=== PATIENT | female | born 1950 | race Caucasian/White ===

== ENCOUNTER 2023-08-08 11:55 | Outpatient (CLI) | payer MEDICARE, SELFPAY ==
[2023-08-08 12:11] VITALS: BMI 26.3
--- NOTE | 2023-08-08 12:13 | PC.NURSE ---
1213-c.leny brown collected labs via venipuncture stick in right ac with butterfly needle; pt d/c to radiology for mammogram and then to dr. rodriguez's office.
--- NOTE | 2023-08-08 12:27 | MM_ITS ---
PROCEDURE INFORMATION: Exam: MG Bilateral Diagnostic Breast Tomosynthesis Exam date and time: 08/08/2023 12:49 PM Age: 72 years old Clinical indication: History of left breast cancer TECHNIQUE: Imaging protocol: Bilateral Diagnostic tomosynthesis and 2D mammography including computer-aided detection (CAD) when performed. Unilateral or bilateral exam. COMPARISON: MG MM DIGITAL MAMMO DIAGNOSTIC LEFT 08/27/2022 11:04 AM FINDINGS: MAMMOGRAPHY: The breast tissue is composed of scattered areas of fibroglandular density. There is no stellate mass, suspicious architectural distortion or suspicious microcalcifications in either breast to suggest malignancy. Post operative architectural distortion in the left upper outer quadrant due to interval lumpectomy for carcinoma. Diffuse skin thickening on the left and increased stromal markings are due to radiation change. No axillary adenopathy IMPRESSION: No mammographic evidence of malignancy. Annual bilateral mammographic screening is recommended unless otherwise clinically indicated. ASSESSMENT: BI-RADS Category 2: Benign
[2023-08-08 12:29] LABS: Basophils % 0.9 % (0.1-2.0); Eosinophils # 0.1 K/mm3 (0.0-0.4); Eosinophils % 2.6 % (0.1-12.0); Hematocrit 39.6 % (37.0-47.0); Hemoglobin 13.4 g/dL (12.2-16.2); Lymphocytes # 0.8 K/mm3 (0.7-4.5); Lymphocytes % 19.6 % (10-50); Mean Corpuscular HGB Conc 33.8 g/dL (31.8-35.4); Mean Corpuscular Hemoglobin 31.9 pg (27.0-31.2); Mean Corpuscular Volume 94.4 fl (81-99); Mean Platelet Volume 8.6 fl (7.4-10.4); Monocytes # 0.2 K/mm3 (0.1-1.0); Monocytes % 5.6 % (1.7-9.3); Neutrophils # 2.9 K/mm3 (1.8-7.8); Neutrophils % 71.3 % (37.0-80.0); Platelet Count 167 K/mm3 (142-424); Red Cell Distribution Width 14.8 % (11.5-17.5)
[2023-08-08 12:37] LABS: Chloride 105 mmol/L (98-107); Potassium 3.8 mmoL/L (3.5-5.1); Sodium 143 mmol/L (136-145)
[2023-08-08 12:40] LABS: Alanine Aminotransferase 18 U/L (12-78); Albumin Level 4.3 g/dl (3.5-5.0); Albumin/Globulin Ratio 1.4 (1.1-1.8); Alkaline Phosphatase 51 U/L (38-126); Anion Gap 9.8 mEq/L (5-15); Aspartate Amino Transferase 27 U/L (14-36); Bilirubin,Total 0.5 mg/dl (0.2-1.3); Blood Urea Nitrogen 9 mg/dl (7-17); Carbon Dioxide 32 mmol/L (22.0-30.0); Creatinine Clearance Estimated 52 mL/min (50-200); Estimated Glomerular Filt Rate 82 ml/min (>60); GFR (African American) 100 ML/MIN (>60); Globulin 3.1 g/dL (1.3-3.2); Total Protein,Serum 7.4 g/dl (6.3-8.2)
[2023-08-08 12:41] LABS: Calcium 9.3 mg/dl (8.4-10.2); Glucose 94 mg/dl (74-100)
== END 2023-08-08 12:20 | disposition home or self-care (01) ==
PROVIDERS: Visit Provider Internal Medicine Medical Oncology
DX: C50.912 Malignant neoplasm of unspecified site of left female breast (principal); R92.8 Other abnormal and inconclusive findings on diagnostic imaging of breast
CPT/HCPCS: 36415; 77062; 77066; 80053; 85025; G0279

== ENCOUNTER 2023-11-06 12:59 | Outpatient (CLI) | payer MEDICARE, SELFPAY ==
[2023-11-06 13:04] VITALS: BMI 27.4
[2023-11-06 13:27] LABS: Basophils # 0.1 K/mm3 (0-0.2); Basophils % 0.8 % (0.1-2.0); Eosinophils # 0.2 K/mm3 (0.0-0.4); Eosinophils % 3.7 % (0.1-12.0); Hematocrit 38.9 % (37.0-47.0); Hemoglobin 12.5 g/dL (12.2-16.2); Lymphocytes % 16.1 % (10-50); Mean Corpuscular HGB Conc 32.1 g/dL (31.8-35.4); Mean Corpuscular Hemoglobin 31.4 pg (27.0-31.2); Mean Corpuscular Volume 97.6 fl (81-99); Mean Platelet Volume 8.7 fl (7.4-10.4); Monocytes # 0.4 K/mm3 (0.1-1.0); Monocytes % 6.8 % (1.7-9.3); Neutrophils # 4.3 K/mm3 (1.8-7.8); Neutrophils % 72.6 % (37.0-80.0); Platelet Count 208 K/mm3 (142-424); Red Blood Count 3.98 M/mm3 (4.20-5.40); Red Cell Distribution Width 13.9 % (11.5-17.5); White Blood Count 5.9 K/mm3 (4.8-10.8)
[2023-11-06 13:37] LABS: Alanine Aminotransferase 17 U/L (12-78); Albumin Level 4.1 g/dl (3.5-5.0); Albumin/Globulin Ratio 1.4 (1.1-1.8); Alkaline Phosphatase 65 U/L (38-126); Aspartate Amino Transferase 26 U/L (14-36); Bilirubin,Total 0.4 mg/dl (0.2-1.3); Blood Urea Nitrogen 10 mg/dl (7-17); Calcium 9.7 mg/dl (8.4-10.2); Carbon Dioxide 32 mmol/L (22.0-30.0); Chloride 103 mmol/L (98-107); Creatinine Clearance Estimated 55 mL/min (50-200); Estimated Glomerular Filt Rate 98 ml/min (>60); GFR (African American) 119 ML/MIN (>60); Glucose 93 mg/dl (74-100); Sodium 141 mmol/L (136-145); Total Protein,Serum 7.1 g/dl (6.3-8.2)
[2023-11-06 14:18] VITALS: BP 155/69; PULSE 66; RESP 18; O2SAT 99
[2023-11-06] MEDS: SODIUM CHLORIDE 0.9% 50ML BAG 50 ML IV (14:18)
[2023-11-06] MEDS: ZOLEDRONIC ACID 4 MG in 0.9 % SODIUM CHLORIDE 100 ML 420 MG IV (14:18)
[2023-11-06 14:40] VITALS: BP 148/61; PULSE 60; RESP 18; O2SAT 100
== END 2023-11-06 14:40 | disposition home or self-care (01) ==
LOC: INF 13:01
PROVIDERS: Visit Provider Internal Medicine Medical Oncology
DX: C50.912 Malignant neoplasm of unspecified site of left female breast (principal)
CPT/HCPCS: 80053; 85025; 96374; J3489

== ENCOUNTER 2024-02-19 13:16 | Outpatient (CLI) | payer MEDICARE, SELFPAY ==
[2024-02-19 14:18] VITALS: BMI 27.4
[2024-02-19 15:40] LABS: Albumin Level 4.7 g/dl (3.5-5.0); Basophils # 0.1 K/mm3 (0-0.2); Basophils % 0.7 % (0.1-2.0); Chloride 103 mmol/L (98-107); Eosinophils # 0.1 K/mm3 (0.0-0.4); Eosinophils % 1.7 % (0.1-12.0); Hemoglobin 14.1 g/dL (12.2-16.2); Lymphocytes # 1.4 K/mm3 (0.7-4.5); Lymphocytes % 17.2 % (10-50); Mean Corpuscular HGB Conc 31.3 g/dL (31.8-35.4); Mean Corpuscular Hemoglobin 30.9 pg (27.0-31.2); Mean Corpuscular Volume 98.8 fl (81-99); Mean Platelet Volume 9.3 fl (7.4-10.4); Monocytes # 0.4 K/mm3 (0.1-1.0); Monocytes % 4.4 % (1.7-9.3); Neutrophils # 6.1 K/mm3 (1.8-7.8); Platelet Count 209 K/mm3 (142-424); Potassium 4.1 mmoL/L (3.5-5.1); Red Blood Count 4.55 M/mm3 (4.20-5.40); Red Cell Distribution Width 14.1 % (11.5-17.5); Sodium 140 mmol/L (136-145)
[2024-02-19 15:43] LABS: Alanine Aminotransferase 21 U/L (12-78); Albumin/Globulin Ratio 1.3 (1.1-1.8); Alkaline Phosphatase 60 U/L (38-126); Anion Gap 9.1 mEq/L (5-15); Aspartate Amino Transferase 33 U/L (14-36); Bilirubin,Total 0.6 mg/dl (0.2-1.3); Blood Urea Nitrogen 16 mg/dl (7-17); Carbon Dioxide 32 mmol/L (22.0-30.0); Creatinine Clearance Estimated 54 mL/min (50-200); Estimated Glomerular Filt Rate 82 ml/min (>60); GFR (African American) 99 ML/MIN (>60); Globulin 3.5 g/dL (1.3-3.2); Total Protein,Serum 8.2 g/dl (6.3-8.2)
[2024-02-19 15:44] LABS: Glucose 102 mg/dl (74-100)
== END 2024-02-19 13:30 | disposition home or self-care (01) ==
LOC: INF 13:17
PROVIDERS: Visit Provider Internal Medicine Medical Oncology
DX: C50.912 Malignant neoplasm of unspecified site of left female breast (principal)
CPT/HCPCS: 36415; 80053; 85025

== ENCOUNTER 2024-05-20 10:04 | Outpatient (CLI) | payer MEDICARE, SELFPAY ==
[2024-05-20 10:26] VITALS: BMI 27.4
[2024-05-20 10:45] LABS: Basophils % 0.8 % (0.1-2.0); Eosinophils # 0.2 K/mm3 (0.0-0.4); Eosinophils % 3.6 % (0.1-12.0); Hematocrit 41.8 % (37.0-47.0); Lymphocytes # 0.8 K/mm3 (0.7-4.5); Lymphocytes % 14.7 % (10-50); Mean Corpuscular HGB Conc 33.5 g/dL (31.8-35.4); Mean Corpuscular Hemoglobin 32.2 pg (27.0-31.2); Mean Corpuscular Volume 96.2 fl (81-99); Mean Platelet Volume 8.3 fl (7.4-10.4); Monocytes # 0.3 K/mm3 (0.1-1.0); Monocytes % 5.9 % (1.7-9.3); Neutrophils # 4.3 K/mm3 (1.8-7.8); Platelet Count 158 K/mm3 (142-424); Red Blood Count 4.34 M/mm3 (4.20-5.40); White Blood Count 5.7 K/mm3 (4.8-10.8)
[2024-05-20 10:55] LABS: Alanine Aminotransferase 18 U/L (12-78); Albumin Level 4.3 g/dl (3.5-5.0); Albumin/Globulin Ratio 1.5 (1.1-1.8); Alkaline Phosphatase 54 U/L (38-126); Anion Gap 9.5 mEq/L (5-15); Aspartate Amino Transferase 26 U/L (14-36); Bilirubin,Total 0.6 mg/dl (0.2-1.3); Blood Urea Nitrogen 11 mg/dl (7-17); Calcium 8.9 mg/dl (8.4-10.2); Carbon Dioxide 32 mmol/L (22.0-30.0); Chloride 105 mmol/L (98-107); Creatinine Clearance Estimated 54 mL/min (50-200); Estimated Glomerular Filt Rate 98 ml/min (>60); GFR (African American) 119 ML/MIN (>60); Globulin 2.9 g/dL (1.3-3.2); Glucose 71 mg/dl (74-100); Potassium 3.5 mmoL/L (3.5-5.1); Sodium 143 mmol/L (136-145); Total Protein,Serum 7.2 g/dl (6.3-8.2)
[2024-05-20] MEDS: SODIUM CHLORIDE 0.9% 50ML BAG 50 ML IV (12:00)
[2024-05-20] MEDS: ZOLEDRONIC ACID 4 MG in 0.9 % SODIUM CHLORIDE 100 ML 420 MG IV (12:00)
[2024-05-20 12:05] VITALS: BP 150/65; PULSE 57; RESP 16; O2SAT 98
[2024-05-20 12:20] VITALS: BP 162/79; PULSE 59; RESP 16
== END 2024-05-20 12:30 | disposition home or self-care (01) ==
LOC: INF 10:09
PROVIDERS: PCP Internal Medicine; Visit Provider Internal Medicine Medical Oncology
DX: C50.912 Malignant neoplasm of unspecified site of left female breast (principal); Z51.11 Encounter for antineoplastic chemotherapy; Z79.83 Long term (current) use of bisphosphonates
CPT/HCPCS: 80053; 85025; 96374; J3489

== ENCOUNTER 2024-08-26 09:52 | Outpatient (CLI) | payer MEDICARE, SELFPAY ==
--- NOTE | 2024-08-26 09:59 | MM_ITS ---
PROCEDURE INFORMATION: Exam: MG Bilateral Screening 3D Mammography Exam date and time: 08/26/2024 10:03 AM Age: 73 years old Clinical indication: Screening exam. Personal history of left breast cancer status post radiation and lumpectomy. TECHNIQUE: Imaging protocol: Bilateral Screening tomosynthesis and 2D mammography including computer-aided detection (CAD) when performed. COMPARISON: 1. MG MM DIG MAMM BI DX W/CAD 08/08/2023 12:49 PM 2. MG MM DIGITAL MAMMO DIAGNOSTIC LEFT 08/27/2022 11:04 AM FINDINGS: MAMMOGRAPHY: Breast composition: The breasts are heterogeneously dense, which may obscure small masses. Mass: No suspicious masses. Architectural distortion: Postsurgical changes redemonstrated left breast. Calcifications: No suspicious calcifications. Asymmetric density: None. Skin thickening: Postradiation skin thickening again noted. Axillary adenopathy: None. IMPRESSION: No mammographic evidence of malignancy. Annual screening is recommended unless otherwise clinically indicated. ASSESSMENT: BI-RADS Category 2: Benign.
[2024-08-26 10:25] VITALS: BMI 28.3
--- NOTE | 2024-08-26 10:29 | PC.NURSE ---
1029-collected labs via venipuncture stick in right ac with butterfly needle;pt to oncology appt.
[2024-08-26 10:36] LABS: Basophils % 0.5 % (0.1-2.0); Eosinophils # 0.1 K/mm3 (0.0-0.4); Eosinophils % 1.9 % (0.1-12.0); Hematocrit 41.4 % (37.0-47.0); Hemoglobin 13.5 g/dL (12.2-16.2); Lymphocytes % 15.4 % (10-50); Mean Corpuscular HGB Conc 32.6 g/dL (31.8-35.4); Mean Corpuscular Hemoglobin 31.3 pg (27.0-31.2); Mean Corpuscular Volume 95.8 fl (81-99); Mean Platelet Volume 10.3 fl (7.4-10.4); Monocytes # 0.6 K/mm3 (0.1-1.0); Monocytes % 9.3 % (1.7-9.3); Neutrophils # 4.6 K/mm3 (1.8-7.8); Neutrophils % 72.7 % (37.0-80.0); Platelet Count 181 K/mm3 (142-424); Red Blood Count 4.32 M/mm3 (4.20-5.40); Red Cell Distribution Width 12.8 % (11.5-17.5); White Blood Count 6.4 K/mm3 (4.8-10.8)
[2024-08-26 10:41] LABS: Albumin Level 4.7 g/dl (3.5-5.0); Chloride 103 mmol/L (98-107); Sodium 142 mmol/L (136-145)
[2024-08-26 10:42] LABS: Potassium 3.9 mmoL/L (3.5-5.1)
[2024-08-26 10:44] LABS: Alanine Aminotransferase 23 U/L (12-78); Albumin/Globulin Ratio 1.5 (1.1-1.8); Alkaline Phosphatase 64 U/L (38-126); Anion Gap 9.9 mEq/L (5-15); Aspartate Amino Transferase 28 U/L (14-36); Bilirubin,Total 0.4 mg/dl (0.2-1.3); Blood Urea Nitrogen 12 mg/dl (7-17); Carbon Dioxide 33 mmol/L (22.0-30.0); Creatinine Clearance Estimated 56 mL/min (50-200); Estimated Glomerular Filt Rate 82 ml/min (>60); GFR (African American) 99 ML/MIN (>60); Globulin 3.2 g/dL (1.3-3.2); Total Protein,Serum 7.9 g/dl (6.3-8.2)
[2024-08-26 10:45] LABS: Calcium 9.7 mg/dl (8.4-10.2); Glucose 96 mg/dl (74-100)
== END 2024-08-26 10:32 | disposition home or self-care (01) ==
LOC: RAD 09:54 → INF 09:59
PROVIDERS: PCP Internal Medicine; Visit Provider Internal Medicine Medical Oncology
DX: Z12.31 Encounter for screening mammogram for malignant neoplasm of breast (principal); C50.912 Malignant neoplasm of unspecified site of left female breast
CPT/HCPCS: 36415; 77063; 77067; 80053; 85025

== ENCOUNTER 2024-11-25 10:42 | Outpatient (CLI) | payer MEDICARE, SELFPAY ==
[2024-11-25 10:45] VITALS: BMI 24.4
[2024-11-25 10:59] LABS: Basophils % 0.4 % (0.1-2.0); Eosinophils # 0.1 Kmm3 (0.0-0.4); Eosinophils % 1.9 % (0.1-12.0); Hematocrit 40.2 % (37.0-47.0); Hemoglobin 12.7 g/dL (12.2-16.2); Immature Granulocytes # 0.02 10^3uL; Immature Granulocytes % 0.3 %; Lymphocytes # 0.9 K/mm3 (0.7-4.5); Lymphocytes % 11.5 % (10-50); Mean Corpuscular HGB Conc 31.6 g/dL (31.8-35.4); Mean Corpuscular Hemoglobin 30.6 pg (27.0-31.2); Mean Corpuscular Volume 96.9 fl (81-99); Monocytes # 0.5 K/mm3 (0.1-1.0); Monocytes % 6.6 % (1.7-9.3); Neutrophils % 79.3 % (37.0-80.0); Nucleated Red Blood Cells # 0 10^3/uL; Nucleated Red Blood Cells % 0 %; Platelet Count 214 K/mm3 (142-424); Red Blood Count 4.15 M/mm3 (4.20-5.40); Red Cell Distribution Width 12.8 % (11.5-17.5); Red Cell Distribution Width-SD 45.4 fL; White Blood Count 7.5 K/mm3 (4.8-10.8)
[2024-11-25 11:06] LABS: Albumin Level 4.4 g/dl (3.5-5.0); Chloride 105 mmol/L (98-107); Potassium 3.6 mmoL/L (3.5-5.1); Sodium 142 mmol/L (136-145)
[2024-11-25 11:09] LABS: Alanine Aminotransferase 20 U/L (12-78); Albumin/Globulin Ratio 1.6 (1.1-1.8); Alkaline Phosphatase 62 U/L (38-126); Anion Gap 7.6 mEq/L (5-15); Aspartate Amino Transferase 29 U/L (14-36); Bilirubin,Total 0.5 mg/dl (0.2-1.3); Blood Urea Nitrogen 13 mg/dl (7-17); Carbon Dioxide 33 mmol/L (22.0-30.0); Creatinine Clearance Estimated 50 mL/min (50-200); Estimated Glomerular Filt Rate 82 ml/min (>60); GFR (African American) 99 ML/MIN (>60); Globulin 2.8 g/dL (1.3-3.2); Total Protein,Serum 7.2 g/dl (6.3-8.2)
[2024-11-25 11:10] LABS: Calcium 9.5 mg/dl (8.4-10.2); Glucose 109 mg/dl (74-100)
[2024-11-25] MEDS: ZOLEDRONIC ACID 4 MG in 0.9 % SODIUM CHLORIDE 100 ML 420 MG IV (12:17)
[2024-11-25] MEDS: SODIUM CHLORIDE 0.9% 50ML BAG 50 ML IV (12:17)
[2024-11-25 12:20] VITALS: BP 136/64; PULSE 70; RESP 18; O2SAT 99
[2024-11-25 12:40] VITALS: BP 146/61; PULSE 68; RESP 18; O2SAT 100
== END 2024-11-25 12:45 | disposition home or self-care (01) ==
LOC: INF 10:44
PROVIDERS: Visit Provider Internal Medicine Medical Oncology
DX: C50.912 Malignant neoplasm of unspecified site of left female breast (principal)
CPT/HCPCS: 80053; 85025; 96374; J3489

== ENCOUNTER 2025-02-24 09:58 | Outpatient (CLI) | payer MEDICARE, SELFPAY ==
--- OUTSIDE RECORDS SUMMARY | 2018-03-18 05:50 | XMS_ITS | Continuity of Care Document ---
Author Organization [facility] Address [address] [place] [phone] Phone Care Team Providers Care Automobile Body Repairer Name Role Phone Tra Decker MD Unavailable Unavailable Procedures Procedure Date OFFICE/OUTPATIENT VISIT, EST POSTOP FOLLOW-UP VISIT POSTOP FOLLOW-UP VISIT POSTOP FOLLOW-UP VISIT POSTOP FOLLOW-UP VISIT CORNEAL TRNSPL, ENDOTHELIAL EYE EXAM & TREATMENT Advance Directives Directive Yes / No Effective Date File Name No Information Encounters Encounter Description Practice Location Reason(s) For Visit Diagnoses Date Provider Providers Copied on Encounter [facility], [address] [place] [address], [address] [place] [address], tel:[phone] [facility] No Information Brianne Dutta. [address] [place] [address], [address] [place] [address], . tel:[phone] OFFICE/OUTPAT IENT VISIT, EST [facility], [address] [place] [address], [id number], tel:[phone] LUZMA ZIEGLER No Information Brianne Dutta. [address] [place] [address], [address] [place] [address], . tel:[phone] [facility], [address] [place] [address], [id number], tel:[phone] LUZMA ZIEGLER No Information [facility]. [address] [place] [address], [address] [place] [address], . tel:[phone] [facility], [address] [place] [address], [address] [place] [address], tel:[phone] LUZMA [facility] [place] No Information [facility] [address] [place] [address], [address] [place] [address], . tel:[phone] [facility], [address] [place] [address], [address] [place] [address], tel:[phone] [facility] [place] No Information [place] [address]. [address] [place] [address], [address] [place] [address], . tel:[phone] [facility], [address] [place] [address], [address] [place] [address], tel:[phone] [employer] [place] No Information [place] [address]. [address] [place] [address], [address] [place] [address], . tel:[phone] [facility], [address] [place] [address], [address] [place] [address], tel:[phone] [facility] [place] No Information [place] [address]. [address] [place] [address], [address] [place] [address], . tel:[phone] Referring Provider: Elmer Byers, [address] [place], [address]. tel:[phone] [facility], [address] [place] [address], [id number], tel:[phone] [employer] [place] No Information [facility] [address]. [address] [place] [address], [address] [place] [address], . tel:[phone] Family History Family Member Type Diagnosis Age At Onset No Information Payers Payer name Insurance type Covered constitution party ID Authoriza tiishmael(s) Chetna Ma FEP BL [id number] Social History Type Description Quantity Date Captured Comments Sex Female Smoking Status No Information Chief Complaint And Reason For Visit No Information Reason For Referral Reason For Referral No Information History Of Present Illness Encounter Date Complaint History Of Prese nt Illness No Information Functional Status Date Functional Assessmen t No Information Instructions Date Instruction Additional Infor mation No Information Assessments Type Assessment Date No Information Patient Care Teams Name Effective Dates (start - stop) Status Members No Information
--- OUTSIDE RECORDS SUMMARY | 2025-02-11 12:41 | XMS_ITS | Encounter Summary ---
Author Organization Healthcare Address [address] [id number] Care Team Providers Care Angular Js Developer Name Role Phone Koko Mejia MD Primary Care Provider [phone] Reason for Visit * Imaging (Routine) - Closed Specialty Diagnoses / Procedures Referred By Contac t Referred To Contact Radiology Diagnoses Dementia (CMS/[facility]) Procedures PET/CT Amyloid Brain Selena Vegas MD [address] [place] [address] Phone: tel: fax: Referral ID Status Reason Start Date Expiration Date Visits Re quested Visits Authorized [id number] Closed 12/31/2024 07/02/2026 2 2 Encounter Details Date Type Department Care Team (Latest Contact Info) Description 02/11/2025 12:41 PM EDT - 02/11/2025 11:59 PM EDT Hospital Encounter [facility] Radiology [address] [place] [address] Discharge Disposition: Home or Self Care Social History Tobacco Use Types Packs/Day Years Used Date Smoking Tobacco: Never Assessed Comments Unknown Sex and Gender Information Value Date Recorded Sex Assigned at Not on file Legal Sex Female 7:40 AM EDT Gender Identity Not on file Sexual Orientation Not on file documented as of this encounter Plan of Treatment Not on file documented as of this encounter Procedures Procedure Name Priority Date/Time Associated Diagnosis Comments PET/CT AMYLOID BRAIN Routine 02/11/2025 2:10 PM EDT Dementia (CMS/HCC) documented in this encounter Results * PET/CT Amyloid Brain (02/11/2025 2:10 PM EDT) Anatomical Region Laterality Modality Positron Emissio n Tomography (PET) Impressions 02/11/2025 4:13 PM EDT F-18 Amyvid scan demonstrates: 1. 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 2. Centiloid Score > 100 suggests high amyloid burden and correlates with established AD pathology and clinical diagnosis. CRITICAL RESULT: No. COMMUNICATION: Per this written report. By electronically signing this report, I, the attending physician, attest that I have personally reviewed the images/data for the above examination(s) and agree with the final edited report. Drafted by CAMI Saul on 02/11/2025 3:26 PM Final report signed by Dmitriy Bello on 02/11/2025 4:13 PM Narrative 02/11/2025 4:13 PM EDT CLINICAL INDICATION: 74 wrcmd-qrmv-eei female diagnosed with dementia, presenting for assessment of eligibility for anti- amyloid therapy. TECHNIQUE: Radiopharmaceutical: 8.1 mCi of F-18 (florbetapir) (Amyvid) administered intravenously at right antecubital fossa at 13:28. Incubation interval: 40 minutes. Positioning: Supine, arms by sides. PET/CT scanner: Siemens Biograph 40 mCT. PET/CT acquisition: Head (Brain). PET reconstruction method: Point Spread Function-Time of Flight (PSF-TOF), 4 iterations, 21 subsets, with and without CT-based attenuation correction. CT: Low-dose, rop-[id number]-qhbx, without intravenous contrast. TOTAL DLP (Dose Length Product): 503.35 mGy cm. Advanced quantitative analysis and both regional and global SUV ratios (SUVr) were reviewed as well as the Global Centiloid Score. COMPARISON/CORRELATION: No comparison. No recent correlative imaging. FINDINGS: Technical quality: Diagnostic. Interpretation: without knowledge of clinical information as directed in the F- 18 (florbetapir) (Amyvid) instructions. Cerebellar uptake: Slightly asymmetrical. Cerebral uptake: Slightly asymmetrical. Moderately increased cerebral cortical uptake with loss of breen/white matter differentiation. Global SUVr: 1.74 Centiloid score: 125.4 CT findings: No acute abnormality. Procedure Note Dmitriy Bello MD - 02/11/2025 CLINICAL INDICATION: 74 wnrul-auag-cfo female diagnosed with dementia, presenting forassessment of eligibility for anti-amyloid therapy. TECHNIQUE: Radiopharmaceutical: 8.1 mCi of F-18 (florbetapir) (Amyvid) administeredintravenously at right antecubital fossa at 13:28. Incubation interval: 40 minutes. Positioning: Supine, arms by sides. PET/CT scanner: Siemens Biograph 40 mCT. PET/CT acquisition: Head (Brain). PET reconstruction method: Point Spread Function-Time of Flight (PSF-TOF),4 iterations, 21 subsets, with and without CT-based attenuationcorrection. CT: Low-dose, [id number]-zyetsy-quhv, without intravenous contrast. TOTAL DLP (Dose Length Product): 503.35 mGy cm. Advanced quantitative analysis and both regional and global SUV ratios(SUVr) were reviewed as well as the Global Centiloid Score. COMPARISON/CORRELATION: No comparison. No recent correlative imaging. FINDINGS: Technical quality: Diagnostic. Interpretation: without knowledge of clinical information as directed inthe F-18 (florbetapir) (Amyvid) instructions. Cerebellar uptake: Slightly asymmetrical. Cerebral uptake: Slightly asymmetrical. Moderately increased cerebral cortical uptake with loss of breen/whitematter differentiation. Global SUVr: 1.74 Centiloid score: 125.4 CT findings: No acute abnormality. IMPRESSION: F-18 Amyvid scan demonstrates: 1.Visual assessment shows evidence of significant beta-Amyloid depositionin the cerebral cortex. 2.Centiloid Score > 100 suggests high amyloid burden and correlates withestablished AD pathology and clinical diagnosis. CRITICAL RESULT: No. COMMUNICATION: Per this written report. By electronically signing this report, I, the attending physician, attestthat I have personally reviewed the images/data for the aboveexamination(s) and agree with the final edited report. Drafted by CAMI Saul on 02/11/2025 3:26 PM Final report signed by Dmitriy Bello on 02/11/2025 4:13 PM Selena Vegas MD [facility] PROCEDURES Final Result documented in this encounter Visit Diagnoses Not on filedocumented in this encounter Care Teams Angular Js Developer Relationship Specialty Start Date End Date Koko Mejia MD [address] [place] [address] PCP - General 02/11/25 documented as of this encounter
--- OUTSIDE RECORDS SUMMARY | 2025-02-11 12:41 | XMS_ITS | Encounter Summary ---
Author Organization [facility] Address [address] [id number] Care Team Providers Care Shuttler Car Name Role Phone Koko Mejia MD Primary Care Provider [phone] Reason for Referral * Imaging (Routine) - Closed Specialty Diagnoses / Procedures Referred By Neri hand Referred To Contact Radiology Diagnoses Dementia (CMS/HCC) Procedures PET/CT Amyloid Brain Selena Vegas MD [address] [place] [address] Phone: tel: fax: Referral ID Status Reason Start Date Expiration Date Visits Re quested Visits Authorized [id number] Closed 12/31/2024 07/02/2026 2 2 Reason for Visit * Imaging (Routine) - Closed Specialty Diagnoses / Procedures Referred By Neri hand Referred To Contact Radiology Diagnoses Dementia ([facility]/HCC) Procedures PET/CT Amyloid Brain Selena Vegas MD [address] [address] Phone: tel: fax: Referral ID Status Reason Start Date Expiration Date Visits Re quested Visits Authorized [id number] Closed 12/31/2024 07/02/2026 2 2 Encounter Details Date Type Department Care Team (Latest Contact Info) Description 02/11/2025 12:41 PM EDT - 02/11/2025 11:59 PM EDT Hospital Encounter [facility] [address] [place] [address] Dementia ([facility]) Discharge Disposition: Home or Self Care Social [...] BRAIN Routine 02/11/2025 2:10 PM EDT Dementia ([facility]) documented in this encounter Results * PET/CT [...] 02/11/2025 4:13 PM EDT CLINICAL INDICATION: 74 ezshx-zixx-tub female diagnosed with dementia, presenting for assessment [...] and without CT-based attenuation correction. CT: Low-dose, akt-yuguca-trpv, without intravenous contrast. TOTAL DLP (Dose Length [...] Bello MD - 02/11/2025 CLINICAL INDICATION: 74 nvsfa-ezlb-ckq female diagnosed with dementia, presenting forassessment of [...] with and without CT-based attenuationcorrection. CT: Low-dose, aqk-wdgavh-aeff, without intravenous contrast. TOTAL DLP (Dose Length [...] signing this report, I, the attending physician, jens I have personally reviewed the images/data for the aboveexamination(s) and agree with the final edited report. Drafted by CAMI Saul on 02/11/2025 3:26 PM Final report signed by Dmitriy Bello on 02/11/2025 4:13 PM us Selena Vegas MD [facility] PROCEDURES Final Result documented in this encounter Visit Diagnoses Diagnosis Dementia (CMS/HCC) Other persistent mental disorders due to conditions classified elsewhere documented in this encounter Administered Medications Inactive Administered Medications - up to 3 most recent administrations Medication Order MAR Action Action Date Dose Rate Site florbetapir F-18 (Amyvid) radio-isotope injection 10 millicurie 10 millicurie, Intravenous, Once, 1 dose, On Denia 02/11/25 at 1430, Routine, Imaging NM Protocol Orders Given 02/11/2025 1:28 PM EDT 8.1 millicuries documented in this encounter Care Teams Shuttler Car Relationship Specialty Start Date End Date Koko Mejia MD [address] [place] [address] PCP - General 02/11/25 documented as of this encounter
--- OUTSIDE RECORDS SUMMARY | 2025-02-24 10:19 | XMS_ITS | Encounter Summary ---
Author Organization Healthcare Address [address] [place] [address] Care Team Providers Care Funeral Professional Name Role Phone Unavailable Primary Care Provider Unavailabl e Encounter Details Date Type Department Care Team ([facility] st Contact Info) Description 12/31/2024 Orders Only Ch Radiology Virtual Dept. [address] [place] [address] Lalito Garcia MD [address] [place] [address] Social History Tobacco Use Types Packs/Day Years Used Date Smoking Tobacco: Never Assessed Comments Unknown Sex and Gender Information Value Date Recorded Sex Assigned at Not on file Legal Sex Female 7:40 AM EDT Gender Identity Not on file Sexual Orientation Not on file documented as of this encounter Plan of Treatment Not on file documented as of this encounter Visit Diagnoses Not on filedocumented in this encounter
--- OUTSIDE RECORDS SUMMARY | 2025-02-24 10:19 | XMS_ITS | Encounter Summary ---
Author Organization [facility] Address [address] [facility] [place] [address] Care Team Providers Care Movie Writer Name Role Phone Elio Rush MD Primary Care Provider Unavaila banner Waqas Llamas MD Unavailable [phone] Quirino Llamas MD Unavailable Koko Mejia MD Primary Care Provider Stacie Yancey LPN Unavailable Unavailable Lupe Hays APRN Unavailable Encounter Details Date Type Department Care Team (Late st Contact Info) Description 11/14/2001 Historical Encounter Global Brody Martinez MD [address] [place] [address] Social History Tobacco Use Types Packs/Day Years Used Date Smoking Tobacco: Never Assessed Comments Unknown Sex and Gender Information Value Date Recorded Sex Assigned at Not on file Legal Sex Female 7:30 PM EST Gender Identity Not on file Sexual Orientation Not on file documented as of this encounter Plan of Treatment Not on file documented as of this encounter Visit Diagnoses Not on filedocumented in this encounter Additional Health Concerns Infection Onset Date Last Indicated Resolved Time Covid-19 (rule out) 08/11/2021 08/11/2021 08/11/19 22 8:27 PM EST Covid-19 (confirmed) 08/11/2021 08/11/2021 022 10:14 PM EDT Covid-19 (rule out) 09/07/2021 09/07/2021 09/08/19 22 2:53 PM EST documented as of this encounter Care Teams Movie Writer Relationship Specialty Start Date End Date Elio Rush MD PCP - General 07/14/08 04/01/19 Koko Mejia MD [address] [place] [address] [facility]. [address] [place] [address] PCP - General Internal Medicine 04/02/19 Waqas Llamas MD [address] [facility] [address] [place] [address] Obstetrics & Gynecology 02/10/18 Quirino Llamas MD [address] [facility] [address] [place] [address] Obstetrics & Gynecology 02/24/19 Stacie Yancey LPN 08/03/21 Lupe Hays APRN [facility] [address] [address] Nurse Practitioner 08/08/21 documented as of this encounter
--- OUTSIDE RECORDS SUMMARY | 2025-02-24 10:19 | XMS_ITS | Encounter Summary ---
Author Organization [facility] Address [address] [place] [place] [address] Care Team Providers Care Data Center Engineer Name Role Phone Elio Rush MD Primary Care Provider Unavaila [facility] Waqas Llamas MD Unavailable Quirino Llamas MD Unavailable Koko Mejia MD Primary Care Provider [phone] Stacie Yancey INSPECTOR CRYSTAL Unavailable Unavailable Lupe Hays APRN Unavailable Encounter Details Date Type Department Care Team (Late st Contact Info) Description 05/30/2009 Transcribe Orders Lab [address] [place] [address] Soledad Howard Social History Tobacco Use Types Packs/Day Years Used Date Smoking Tobacco: Former Cigarettes Comments:stopped 30 yrs ago Alcohol Use Standard Drinks/Week Comments No 0 (1 standard drink = 0.6 oz pur e alcohol) Comments No Sex and Gender Information Value Date Recorded [...] EDT Covid-19 (rule out) 09/07/2021 09/07/2021 09/08/19 2:53 PM EST documented as of this encounter Care Teams Data Center Engineer Relationship Specialty Start Date End Date Elio Rush MD PCP - General 07/14/08 04/01/19 Koko Mejia MD [address] [place] [address] [address] [place] [address] PCP - General Internal Medicine 04/02/19 Waqas Llamas MD [address] [facility] [address] [place] [address] Obstetrics & Gynecology 02/10/18 Quirino Llamas MD [address] [facility] [address] [place] [address] Obstetrics & Gynecology 02/24/19 Stacie Yancey LPN 08/03/21 Lupe Hays APRN [address] [facility] [address] [place] [address] Nurse Practitioner 08/08/21 documented as of this encounter
--- OUTSIDE RECORDS SUMMARY | 2025-02-24 10:19 | XMS_ITS | Clinical Summary ---
Author Organization Healthcare Address [address] [id number] Care Team Providers Care Chief Crew Scheduler Name Role Phone Koko Mejia MD Primary Care Provider [phone] Encounters Date Type Department Care Team Description 02/11/2025 12:41 PM EDT - 02/11/2025 11:59 PM EDT Hospital Encounter [facility] [address] [place] [address] Discharge Disposition: Home or Self Care 02/11/2025 12:41 PM EDT - 02/11/2025 11:59 PM EDT Hospital Encounter [facility] [address] [place] [phone] Dementia (CMS/HCC) Discharge Disposition: Home or Self Care 02/11/2025 Travel 12/31/2024 Orders Only Ch Radiology Virtual Dept. [address] [place] [phone] Lalito Garcia MD from Last 3 Months Social History Tobacco Use Types Packs/Day Years Used Date Smoking Tobacco: Never Assessed Comments Unknown Sex and Gender Information Value Date Recorded Sex Assigned at Not on file Legal Sex Female 7:40 AM EDT Gender Identity Not on file Sexual Orientation Not on file Plan of Treatment Health Maintenance Due Date Last Done Comments [facility]-Depression Screening 1950 [facility]-Hepatitis C Screening 1950 [facility]-Medicare Annual Wellness (AWV) 1950 [facility]-Infant/Child/Adol SDOH Screenings 1950 [facility]- SDOH Screenings 1968 [facility]-Adult SDOH Screenings 1968 CT Colonography 12/06/1995 Colonoscopy 12/06/1995 FIT-DNA 12/06/1995 FIT 12/06/1995 FOBT 12/06/1995 Sigmoidoscopy 12/06/1995 [facility]-Colorectal Cancer Screening 12/06/1995 [facility]-Pneumococcal Vaccine: 50+ Years (1 of 1 - PCV) 2000 [facility]-Zoster Vaccines (1 of 2) 2000 [id number] Vaccine (3 - season) 2024 03/19/2021, 02/11/2021 [facility]-Breast Cancer Screening 07/25/202407/08, 07/25/2022, 07/19/2021, Additional history exists [facility]-Influenza Vaccine (#1) 2025 [facility]-RSV Vaccine: 60+ Years or (1 - 1-dose 75+ series) 2025 [facility]-Bone Density Scan 10/28/2026 10/28/2024 [facility]-DTaP,Tdap,and Td Vaccines (2 - Td or Tdap) 03/29/2032 03/29/2022, 01/02/2014 HPV Vaccines Aged Out No longer eligi ble based on patient's age to complete this topic [facility]-HIB Vaccines Aged Out No longer e ligible based on patient's age to complete this topic [facility]-Hepatitis A Vaccines Aged Out No longer eligible based on patient's age to complete this topic [facility]-IPV Vaccines Aged Out No longer e ligible based on patient's age to complete this topic [facility]-Rotavirus Vaccines Aged Out No lo nger eligible based on patient's age to complete this topic Procedures Procedure Name Priority Date/Time Associated Diagnosis Comments PET/CT AMYLOID BRAIN Routine 02/11/2025 2:10 PM EDT Dementia (CMS/HCC) from Last 3 Months Results * PET/CT Amyloid Brain (02/11/2025 2:10 [...] 02/11/2025 4:13 PM EDT CLINICAL INDICATION: 74 yjxnb-ptgt-jyf female diagnosed with dementia, presenting for assessment [...] and without CT-based attenuation correction. CT: Low-dose, fzd-nysxyf-qgbr, without intravenous contrast. TOTAL DLP (Dose Length [...] Bello MD - 02/11/2025 CLINICAL INDICATION: 74 grsne-vnjs-edu female diagnosed with dementia, presenting forassessment of [...] with and without CT-based attenuationcorrection. CT: Low-dose, iba-[id number]-rbzd, without intravenous contrast. TOTAL DLP (Dose Length [...] on 02/11/2025 4:13 PM Selena Vegas MD [facility] PROCEDURES Final Result from Last 3 Months Insurance MEDICARE A[employer] Care Teams Chief Crew Scheduler Relationship Specialty Start Date End Date Koko Mejia MD [address] [facility] [place] [address] PCP - General 02/11/25
--- OUTSIDE RECORDS SUMMARY | 2025-02-24 10:19 | XMS_ITS | Encounter Summary ---
Author Organization Healthcare Address [address] [place] [address] Care Team Providers Care Driver Guard Name Role Phone Koko Mejia MD Primary Care Provider [phone] Encounter Details Date Type Department Care Team (Latest Contact Info) Description 02/11/2025 Travel Social History Tobacco Use Types Packs/Day Years [...] on filedocumented in this encounter Care Teams Driver Guard Relationship Specialty Start Date End Date Koko Mejia MD [address] [facility] [address] [place] [address] PCP - General 02/11/25 documented as of this encounter
--- OUTSIDE RECORDS SUMMARY | 2025-02-24 10:19 | XMS_ITS | Clinical Summary ---
Author Organization [facility] Address [address] [place] [id number] Care Team Providers Care Engineering Librarian Name Role Phone Koko Mejia MD Primary Care Provider [phone] Allergies No known active allergies Medications atorvastatin (LIPITOR) 20 MG tablet Take 20 mg by mouth Daily. Active levothyroxine (SYNTHROID, LEVOTHROID) 125 MCG tablet Take 125 mcg by mouth Daily. Active sertraline (ZOLOFT) 50 MG tablet Take 50 mg by mouth Daily. Active aspirin 81 MG EC tablet Take 81 mg by mouth Daily. Active clopidogrel (PLAVIX) 75 MG tablet Take 1 tablet by mouth Daily. 30 tablet 11 01/23/2021 Active Active Problems Problem Noted Date Diagnosed Date Abnormal stress test 01/16/2021 Overview (01/16/2021): Added automatically from request for surgery [id number] Social History Tobacco Use Types Packs/Day Years Used Date Smoking Tobacco: Former Cigarettes Q uit: 1999 Smokeless Tobacco: Never Alcohol Use Standard Drinks/Week Comments Not Currently 0 (1 standard drink = 0.6 oz pur e alcohol) Abuse Screen Answer Date Recorded Unsafe at Home or Work/School Not on file Feels Threatened by Someone? Not on file Does Anyone Keep You from Co ntacting Others or Doint Things Outside the Home? Not on file 04/19/2023 Physical Sign of Abuse Present Not on file 1 Housing Stability Answer Date Recorded Current Living Arrangements Not on file 04/07 Potentially Unsafe Housing Conditions Not on asha e 04/19/2023 Family and Community Support Answer Billy e Recorded Help with Day-to-Day Activities Not on file 04/19/2023 Lonely or Isolated Not on file 04/19/2023 Employment Answer Date Recorded Do you want help finding or keeping work or a nadya b? Not on file 04/19/2023 Disabilities Answer Date Recorded Concentrating, Remembering, or Making Decisions Difficulty Not on file 04/19/2023 Doing Errands Independently Difficulty Not on fi le 04/19/2023 Education Answer Date Recorded Help with school or training? Not on file Preferred Language Not on file 04/19/2023 Comments Unknown Sex and Gender Information Value Date Recorded Sex Assigned at Not on file Legal Sex Female 3:42 PM EDT Gender Identity Not on file Sexual Orientation Not on file Last Filed Vital Signs Vital Sign Reading Time Taken Comments Blood Pressure 134/51 01/23/2021 7:15 PM EDT Pulse 58 01/23/2021 7:15 PM EDT Temperature 36.5 C (97.7 F) 01/23/2021 1:12 PM EDT Respiratory Rate 18 01/23/2021 4:00 PM EDT Oxygen Saturation 95% 01/23/2021 7:15 PM EDT Inhaled Oxygen Concentration - - Weight 68.1 kg (150 lb 2.1 oz) 01/23/2021 1:45 P M EDT Height 160 cm (5' 3 ) 01/23/2021 1:45 PM EDT Body Mass Index 26.59 01/23/2021 1:45 PM EDT Plan of Treatment Health Maintenance Due Date Last Done Comments DXA SCAN 1950 MAMMOGRAM 1990 COLOGUARD 12/06/1995 COLON CANCER SCREENING 5 YEAR SIGMOIDOSCOPY 12/06/1995 COLONOSCOPY 12/06/1995 COLORECTAL CANCER SCREENING 12/06/1995 CT COLONOGRAPHY 12/06/1995 FECAL OCCULT BLOOD TEST 12/06/1995 FIT Testing (1 year) 12/06/1995 Pneumococcal Vaccine 50+ (1 of 1 - PCV) 2000 ZOSTER VACCINE (1 of 2) 2000 ANNUAL WELLNESS VISIT 01/24/2021 HEPATITIS C SCREENING 01/24/2021 TDAP/TD VACCINES (2 - Tdap) 01/03/2024 01/02/2014 COVID-19 Vaccine (1 - season) 2024 INFLUENZA VACCINE 04/07/2025 Medical Devices Implanted Type Area Furnace Converter Device Identifier Shelf Expiration Date Model / Serial / Lot Stnt Cornry Res[employer] [place] Rx 2x30mm - [id number] Implanted:Qty: 1 on 01/23/2021 by Socrates Lou MD at [facility] [employer] [id number] / / Insurance MEDICARE A & B Care Teams Engineering Librarian Relationship Specialty Start Date End Date Koko Mejia MD [address] [facility] [address] [place] [address] PCP - General Internal Medicine 01/24/21
--- OUTSIDE RECORDS SUMMARY | 2025-02-24 10:19 | XMS_ITS | Encounter Summary ---
Author Organization [facility] Address [address] [facility] [place] [address] Care Team Providers Care Salesperson Florist Supplies Name Role Phone Elio Rush MD Primary Care Provider Unavaila [facility] Waqas Llamas MD Unavailable [phone] Quirino Llamas MD Unavailable Koko Mejia MD Primary Care Provider [phone] Stacie Yancey COMPUTER VIDEO GAME DESIGNER Unavailable Unavailable Lupe Hays PLODDING OPERATOR Unavailable Encounter Details Date Type Department Care Team (Late st Contact Info) Description 07/06/2002 Historical Encounter Global Elmer Leyva APRN [address] [facility] [place] [address] Social History Tobacco Use Types Packs/Day Years [...] Time Covid-19 (rule out) 08/11/2021 08/11/2021 08/11/19 8:27 PM EST Covid-19 (confirmed) 08/11/2021 08/11/2021 022 10:14 PM EDT Covid-19 (rule out) 09/07/2021 09/07/2021 09/08/19 2:53 PM EST documented as of this encounter Care Teams Salesperson Florist Supplies Relationship Specialty Start Date End Date Elio Rush MD PCP - General 07/14/08 04/01/19 Koko Mejia MD 700 [facility]. [address] [place] [address] PCP - General Internal Medicine 04/02/19 Waqas Llamas MD [address] [facility] [address] [place] [address] Obstetrics & Gynecology 02/10/18 Quirino Llamas MD [address] [facility] [address] [place] [address] Obstetrics & Gynecology 02/24/19 Stacie Yancey LPN 08/03/21 Lupe Hays APRN [address] [facility] [address] [place] [address] Nurse Practitioner 08/08/21 documented as of this encounter
--- OUTSIDE RECORDS SUMMARY | 2025-02-24 10:19 | XMS_ITS | Encounter Summary ---
Author Organization [facility] Address [address] [place] [address] Care Team Providers Care Control Systems Specialist Name Role Phone Elio Rush MD Primary Care Provider Unavaila [facility] Waqas Llamas MD Unavailable [phone] Quirino Llamas MD Unavailable Koko Mejia MD Primary Care Provider Stacie Yancey TEMPLATE MAKER Unavailable Unavailable Lupe Hays APRN Unavailable Encounter Details Date Type Department Care Team (Late st Contact Info) Description 01/01/2012 Transcribe Orders Lab [address] [place] [address] Nisha Skinner MD [address] [place] [address] Social History Tobacco Use Types Packs/Day Years [...] documented as of this encounter Care Teams Control Systems Specialist Relationship Specialty Start Date End Date Elio Rush MD PCP - General 07/14/08 04/01/19 Koko Mejia MD 700 [facility]. [address] [place] [address] PCP - General Internal Medicine 04/02/19 [place] [address] [place] [address] Obstetrics & Gynecology 02/10/18 Quirino Llamas MD [address] [place] [address] Obstetrics & Gynecology 02/24/19 Stacie Yancey LPN 08/03/21 Lupe Hays APRN [address] [place] [address] Nurse Practitioner 08/08/21 documented as of this encounter
--- OUTSIDE RECORDS SUMMARY | 2025-02-24 10:20 | XMS_ITS | Encounter Summary ---
Author Organization [facility] Address [address] [facility] [place] [address] Care Team Providers Care Offc Spec Name Role Phone Elio Rush MD Primary Care Provider Unavaila [facility] Waqas Llamas MD Unavailable [phone] Quirino Llamas MD Unavailable Koko Mejia MD Primary Care Provider Stacie Yancey CHIEF CLIENT OFFICER Unavailable Unavailable Lupe Hays APRN Unavailable Encounter Details Date Type Department Care Team (Late st Contact Info) Description 04/05/1999 Historical Encounter Global Quirino Llamas MD [address] [facility] [address] [place] [address] Social History Tobacco Use Types Packs/Day Years [...] documented as of this encounter Care Teams Offc Spec Relationship Specialty Start Date End Date Elio Rush MD PCP - General 07/14/08 04/01/19 Koko Mejia MD [address] [place] [address] [facility]. [address] [place] [address] PCP - General Internal Medicine 04/02/19 Waqas Llamas MD [address] [facility] [address] [place] [address] Obstetrics & Gynecology 02/10/18 Quirino Llamas MD [address] [facility] [address] [place] [address] Obstetrics & Gynecology 02/24/19 Stacie Yancey LPN 08/03/21 Lupe Hays APRN [address] [place] [address] Nurse Practitioner 08/08/21 documented as of this encounter
--- OUTSIDE RECORDS SUMMARY | 2025-02-24 10:20 | XMS_ITS | Encounter Summary ---
Author Organization [facility] Address [address] [facility] [place] [address] Care Team Providers Care Interlibrary Loan Specialist Name Role Phone Elio Rush MD Primary Care Provider Unavaila Waqas Vega MD Unavailable [phone] Quirino Llamas MD Unavailable Koko Mejia MD Primary Care Provider Stacie Yancey MANAGER RETIREMENT Unavailable Unavailable Lupe Hays APRN Unavailable [phone] Encounter Details Date Type Department Care Team (Late st Contact Info) Description 08/26/2002 Historical Encounter Global Waqas Simpson MD [address] [place] [address] Social History Tobacco Use Types Packs/Day [...] documented as of this encounter Care Teams Interlibrary Loan Specialist Relationship Specialty Start Date End Date Elio Rush MD PCP - General 07/14/08 04/01/19 Koko Mejia MD [facility]. [address] [place] [address] PCP - General Internal Medicine 04/02/19 aWqas Llamas MD [address] [facility] [address] [place] [address] Obstetrics & Gynecology 02/10/18 Quirino Llamas MD [address] [facility] [address] [place] [address] Obstetrics & Gynecology 02/24/19 Stacie Yancey LPN 08/03/21 Lupe Hays APRN [address] [facility] [address] [place] [address] Nurse Practitioner 08/08/21 documented as of this encounter
--- OUTSIDE RECORDS SUMMARY | 2025-02-24 10:20 | XMS_ITS | Encounter Summary ---
Author Organization [facility] Address [address] [place] [address] Care Team Providers Care Food Beverage Supervisor Name Role Phone Elio Rush MD Primary Care Provider Unavaila Waqas Vega MD Unavailable [phone] Quirino Llamas MD Unavailable Koko Mejia MD Primary Care Provider [phone] Stacie Yancey TRANSIT MIXER DRIVER Unavailable Unavailable Lupe Hays APRN Unavailable Encounter Details Date Type Department Care Team (Late st Contact Info) Description 02/06/2007 Historical Encounter Global Edward [place] MD [address] [place] [address] [place] [address] Social History Tobacco Use [...] documented as of this encounter Care Teams Food Beverage Supervisor Relationship Specialty Start Date End Date Elio Rush MD PCP - General 07/14/08 04/01/19 Koko Mejia MD [address] [place] [address] [facility]. [address] [place] [address] PCP - General Internal Medicine 04/02/19 Waqas Llamas MD [address] [facility] [address] [place] [address] Obstetrics & Gynecology 02/10/18 Quirino Llamas MD [address] [facility] [address] [place] [address] Obstetrics & Gynecology 02/24/19 Stacie Yancey LPN 08/03/21 Lupe Hays APRN [address] [facility] [address] [place] [address] Nurse Practitioner 08/08/21 documented as of this encounter
--- OUTSIDE RECORDS SUMMARY | 2025-02-24 10:20 | XMS_ITS | Encounter Summary ---
Author Organization [facility] Address [address] [facility] [place] [address] Care Team Providers Care Lasting Machine Operator Hand Method Name Role Phone Elio Rush MD Primary Care Provider Unavaila Waqas Vega MD Unavailable [phone] Quirino Llamas MD Unavailable Koko Mejia MD Primary Care Provider Stacie Yancey SUPERINTENDENT JOB Unavailable Unavailable Lupe Hays APRN Unavailable [phone] Encounter Details Date Type Department Care Team (Late st Contact Info) Description 04/16/1996 Historical Encounter Global Waqas Simpson MD [address] [place] [address] Social History Tobacco Use Types Packs/Day [...] documented as of this encounter Care Teams Lasting Machine Operator Hand Method Relationship Specialty Start Date End Date Elio Rush MD PCP - General 07/14/08 04/01/19 Koko Mejia MD 700 [facility]. [address] [place] [address] PCP - General Internal Medicine 04/02/19 Waqas Llamas MD [address] [facility] [address] [place] [address] Obstetrics & Gynecology 02/10/18 Quirino Llamas MD [address] [facility] [address] [place] [address] Obstetrics & Gynecology 02/24/19 Stacie Yancey LPN 08/03/21 Lupe Hays APRN [address] [facility] [address] [place] [address] Nurse Practitioner 08/08/21 documented as of this encounter
--- OUTSIDE RECORDS SUMMARY | 2025-02-24 10:20 | XMS_ITS | Encounter Summary ---
Author Organization [facility] Address [address] [facility] [place] [address] Care Team Providers Care Glaze Supervisor Name Role Phone Elio Rush MD Primary Care Provider Unavaila [facility] Waqas Llamas MD Unavailable Quirino Llamas MD Unavailable Koko Mejia MD Primary Care Provider Stacie Yancey FILM PAINTER Unavailable Unavailable Lupe Hays APRN Unavailable Encounter Details Date Type Department Care Team (Late st Contact Info) Description 11/24/2004 Historical Encounter Global Quirino Llamas MD [address] [facility] [address] [place] [address] Social History Tobacco Use Types [...] documented as of this encounter Care Teams Glaze Supervisor Relationship Specialty Start Date End Date Elio Rush MD PCP - General 07/14/08 04/01/19 Koko Mejia MD [address] [place] [address] [facility]. [address] [place] [address] PCP - General Internal Medicine 04/02/19 Waqas Llamas MD [address] [facility] [address] [place] [address] Obstetrics & Gynecology 02/10/18 Quirino Llamas MD [address] [facility] [address] [place] [address] Obstetrics & Gynecology 02/24/19 Stacie Yancey LPN 08/03/21 Lupe Hays APRN [address] [place] [address] Nurse Practitioner 08/08/21 documented as of this encounter
--- OUTSIDE RECORDS SUMMARY | 2025-02-24 10:20 | XMS_ITS | Encounter Summary ---
Author Organization [facility] Address [address] [place] [address] Care Team Providers Care Electrical And Instrumentation Mechanic Name Role Phone Elio Rush MD Primary Care Provider Unavaila Waqas Vega MD Unavailable Quirino Llamas MD Unavailable Koko Mejia MD Primary Care Provider Stacie Yancey MACHINE TOOL REBUILDER Unavailable Unavailable Lupe Hays APRN Unavailable [phone] Encounter Details Date Type Department Care Team (Late st Contact Info) Description 03/13/2007 Historical Encounter Global Edward [place] MD [address], [place] [address] [place] [address] Social History Tobacco Use [...] documented as of this encounter Care Teams Electrical And Instrumentation Mechanic Relationship Specialty Start Date End Date Elio Rush MD PCP - General 07/14/08 04/01/19 Koko Mejia MD [address] [place] [address] [facility]. [address] [place] [address] PCP - General Internal Medicine 04/02/19 Waqas Llamas MD [address] [facility] [address] [place] [address] Obstetrics & Gynecology 02/10/18 Quirino Llamas MD [address] [facility] [address] [place] [address] Obstetrics & Gynecology 02/24/19 Stacie Yancey LPN 08/03/21 Lupe Hays APRN [address] [facility] [address] [place] [address] Nurse Practitioner 08/08/21 documented as of this encounter
--- OUTSIDE RECORDS SUMMARY | 2025-02-24 10:20 | XMS_ITS | Clinical Summary ---
Author Organization [facility] Address [address] [facility], [address] [place] [address] Care Team Providers Care Overhead Garage Door Hanger Name Role Phone Koko Jones MD Primary Care Provider [phone] Active Problems Problem Noted Date Diagnosed Date Left knee pain 07/06/2013 Aortic stenosis with mitral and aortic insuffici ency 03/03/2013 S/P coronary artery stent placement 02/01/2013 Hyperlipoproteinemia 02/01/2013 Hypothyroidism 02/01/2013 Chest pain, unspecified 02/01/2013 Coronary artery disease 02/01/2013 Abnormal nuclear stress test 02/01/2013 H/O: rheumatic fever 02/01/2013 Depression Osteoarthritis Heart murmur Hypercholesterolemia Hypertension Immunizations Immunization Administration Dates Next Due TD 5LF, TENIVAC, (age 7y+), IM, 0.5mL 01/02/2014 Social History Tobacco Use Types Packs/Day Years Used Date Smoking Tobacco: Never Assessed Comments Unknown Sex and Gender Information Value Date Recorded Sex Assigned at Not on file Legal Sex Female 11:32 PM EST Gender Identity Not on file Sexual Orientation Not on file Plan of Treatment Not on file Care Teams Overhead Garage Door Hanger Relationship Specialty Start Date End Date Koko Jones MD [address] [place] [address] PCP - General 06/13/15
--- OUTSIDE RECORDS SUMMARY | 2025-02-24 10:20 | XMS_ITS | Encounter Summary ---
Author Organization [facility] Address [address] [place] [address] Care Team Providers Care Radiation Engineer Name Role Phone Elio Rush MD Primary Care Provider Unavaila Waqas Vega MD Unavailable [phone] Quirino Llamas MD Unavailable Koko Mejia MD Primary Care Provider Stacie Yancey CONSERVATION ENFORCEMENT OFFICER Unavailable Unavailable Lupe Hays APRN Unavailable [phone] Encounter Details Date Type Department Care Team (Late st Contact Info) Description 02/23/2007 Historical Encounter Global Edward [place] MD [address], [place] [address] [place] [address] Social History Tobacco Use [...] documented as of this encounter Care Teams Radiation Engineer Relationship Specialty Start Date End Date Elio Rush MD PCP - General 07/14/08 04/01/19 Koko Mejia MD [address] [place] [address] [facility]. [address] [place] [address] PCP - General Internal Medicine 04/02/19 Waqas Llamas MD [address] [facility] [address] [place] [address] Obstetrics & Gynecology 02/10/18 Quirino Llamas MD [address] [facility] [address] [place] [address] Obstetrics & Gynecology 02/24/19 Stacie Yancey LPN 08/03/21 Lupe Hays APRN [address] [facility] [address] [place] [address] Nurse Practitioner 08/08/21 documented as of this encounter
--- OUTSIDE RECORDS SUMMARY | 2025-02-24 10:20 | XMS_ITS | Encounter Summary ---
Author Organization [facility] Address [address] [facility] [place] [address] Care Team Providers Care Chemistry Technical Officer Name Role Phone Elio Rush MD Primary Care Provider Unavaila [facility] Waqas Llamas MD Unavailable Quirino Llamas MD Unavailable Koko Mejia MD Primary Care Provider Stacie Yancey TEMPLATE CUTTER Unavailable Unavailable Lupe Hays APRN Unavailable [phone] Encounter Details Date Type Department Care Team (Late st Contact Info) Description 05/25/1996 Historical Encounter Global Quirino Llamas MD [address] [facility] [address] [place] [address] Social History Tobacco Use Types [...] documented as of this encounter Care Teams Chemistry Technical Officer Relationship Specialty Start Date End Date Elio Rush MD PCP - General 07/14/08 04/01/19 Koko Mejia MD [address] [place] [address] [facility]. [address] [place] [address] PCP - General Internal Medicine 04/02/19 Waqas Llamas MD [address] [facility] [address] [place] [address] Obstetrics & Gynecology 02/10/18 Quirino Llamas MD 2[address] [facility] [address] [place] [address] Obstetrics & Gynecology 02/24/19 Stacie Yancey LPN 08/03/21 Lupe Hays APRN [address] [place] [address] Nurse Practitioner 08/08/21 documented as of this encounter
--- OUTSIDE RECORDS SUMMARY | 2025-02-24 10:20 | XMS_ITS | Encounter Summary ---
Author Organization [facility] Address [address] [facility] [place] [address] Care Team Providers Care Security Engineer Name Role Phone Elio Rush MD Primary Care Provider Unav[facility]a [facility] aWqas Llamas MD Unavailable Quirino Llamas MD Unavailable Koko eMjia MD Primary Care Provider Stacie Yancey AD CLERK Unavailable Unavailable Lupe Hays APRN Unavailable Encounter Details Date Type Department Care Team (Late st Contact Info) Description 11/18/2003 Historical Encounter Global Quirino Llamas MD [address] [facility] [address] [place] [address] Social History Tobacco Use Types [...] documented as of this encounter Care Teams Security Engineer Relationship Specialty Start Date End Date Elio Rush MD PCP - General 07/14/08 04/01/19 Koko Mejia MD [address] [place] [address] [facility]. [address] [place] [address] PCP - General Internal Medicine 04/02/19 Waqas Llamas MD [address] [facility] [address] [place] [address] Obstetrics & Gynecology 02/10/18 Quirino Llamas MD [address] [facility] [address] [place] [address] Obstetrics & Gynecology 02/24/19 Stacie Ynacey LPN 08/03/21 Lupe Hays APRN [address] [place] [address] Nurse Practitioner 08/08/21 documented as of this encounter
--- OUTSIDE RECORDS SUMMARY | 2025-02-24 10:20 | XMS_ITS | Encounter Summary ---
Author Organization [facility] Address [address] [facility] [place] [address] Care Team Providers Care Sailing Officer Name Role Phone Elio Rush MD Primary Care Provider Unavaila [facility] Waqas Llamas MD Unavailable Quirino Llamas MD Unavailable Koko Mejia MD Primary Care Provider [phone] Stacie Yancey PIPE WRAPPING MACHINE OPERATOR Unavailable Unavailable Lupe Hays APRN Unavailable [phone] Encounter Details Date Type Department Care Team (Late st Contact Info) Description 07/15/2003 Historical Encounter Global Quirino Llamas MD [address] [facility] [address] [place] [address] Social History Tobacco Use Types [...] documented as of this encounter Care Teams Sailing Officer Relationship Specialty Start Date End Date Elio Rush MD PCP - General 07/14/08 04/01/19 Koko Mejia MD [address] [place] [address] [facility]. [address] [place] [address] PCP - General Internal Medicine 04/02/19 Waqas Llamas MD [address] [facility] [address] [place] [address] Obstetrics & Gynecology 02/10/18 Quirino Llamas MD [address] [facility] [address] [place] [address] Obstetrics & Gynecology 02/24/19 Stacie Yancey LPN 08/03/21 Lupe Hays APRN [address] [place] [address] Nurse Practitioner 08/08/21 documented as of this encounter
--- OUTSIDE RECORDS SUMMARY | 2025-02-24 10:20 | XMS_ITS | Encounter Summary ---
Author Organization [facility] Address [address] [facility] [place] [address] Care Team Providers Care Cooker Pie Filling Name Role Phone Elio Rush MD Primary Care Provider Unavaila [facility] Waqas Llamas MD Unavailable Quirino Llamas MD Unavailable Koko Mejia MD Primary Care Provider Stacie Yancey PROJECT PRODUCTION ENGINEER Unavailable Unavailable Lupe Hays APRN Unavailable [phone] Encounter Details Date Type Department Care Team (Late st Contact Info) Description 08/04/1998 Historical Encounter Global Quirino Llamas MD [address] [facility] [address] [place] [address] Social History Tobacco Use Types [...] documented as of this encounter Care Teams Cooker Pie Filling Relationship Specialty Start Date End Date Elio Rush MD PCP - General 07/14/08 04/01/19 Koko Mejia MD [address] [place] [address] [facility]. [address] [place] [address] PCP - General Internal Medicine 04/02/19 Waqas Llamas MD [address] [facility] [address] [place] [address] Obstetrics & Gynecology 02/10/18 Quirino Llamas MD [address] [facility] [address] [place] [address] Obstetrics & Gynecology 02/24/19 Stacie Yancey LPN 08/03/21 Lupe Hays APRN [address] [place] [address] Nurse Practitioner 08/08/21 documented as of this encounter
--- OUTSIDE RECORDS SUMMARY | 2025-02-24 10:20 | XMS_ITS | Encounter Summary ---
Author Organization [facility] Address [address] [facility] [place] [address] Care Team Providers Care Nurse Assistant Name Role Phone Elio Rush MD Primary Care Provider Unavaila [facility] Waqas Llamas MD Unavailable Quirino Llamas MD Unavailable Koko Mejia MD Primary Care Provider Stacie Yancey DIRECTOR INDEPENDENT Unavailable Unavailable Lupe Hays APRN Unavailable Encounter Details Date Type Department Care Team (Late st Contact Info) Description 08/15/1999 Historical Encounter Global Quirino Llamas MD [address] [facility] [address] [place] [address] Social History Tobacco Use Types [...] documented as of this encounter Care Teams Nurse Assistant Relationship Specialty Start Date End Date Elio Rush MD PCP - General 07/14/08 04/01/19 Koko Mejia MD [address] [place] [address] [facility]. [address] [place] [address] PCP - General Internal Medicine 04/02/19 Waqas Llamas MD [address] [facility] [address] [place] [address] Obstetrics & Gynecology 02/10/18 Quirino Llamas MD [address] [facility] [address] [place] [address] Obstetrics & Gynecology 02/24/19 Stacie Yancey LPN 08/03/21 Lupe Hays APRN [address] [place] [address] Nurse Practitioner 08/08/21 documented as of this encounter
--- OUTSIDE RECORDS SUMMARY | 2025-02-24 10:20 | XMS_ITS | Clinical Summary ---
Author Organization [facility] Address [address] [place] [address] Care Team Providers Care Photovoltaic Solar Cell Designer Name Role Phone Waqas Llamas MD Unavailable Quirino Llamas MD Unavailable Koko Mejia MD Primary Care Provider Stacie Yancey LPN Unavailable Unavailable Lupe Hays APRN Unavailable Allergies No known active allergies Medications levothyroxine (SYNTHROID) 125 mcg tablet Take 125 mcg by mouth Once Daily. Hypo thyroid Active sertraline (ZOLOFT) 50 mg tablet Take 50 mg by mouth Once Daily. Anxiety,, Hot flashes Active atorvastatin (LIPITOR) 80 mg tablet Take 80 mg by mouth At bedtime. cholesterol Active ascorbic acid (VITAMIN C PO) Take by mouth. Active cyanocobalamin, vitamin B-12, (VITAMIN B-12 PO) Take by mouth. Activ e TURMERIC PO Take by mouth. Act valeri ergocalciferol, vitamin D2, (VITAMIN D PO) Take by mouth. Active docosahexanoic acid (DHA PO) Take by mouth. Ac tive estradiol (IMVEXXY VA) by Vaginal route. Active clopidogreL (PLAVIX) 75 mg tablet Take 75 mg by mouth Daily. Active aspirin 81 mg chewable tablet Take 81 mg by mouth Daily. Active INTRAROSA 6.5 mg Inst 4 Active anastrozole (ARIMIDEX) 1 mg 4 Active abemaciclib (VERZENIO) 150 mg tablet Take 150 mg by mouth. 3 Active acetaminophen (TYLENOL) 325 mg tablet Take 650 mg by mouth. Active HYDROcodone-beti taminophen (NORCO) 5-325 mg per tabletIndicatio ns:Right patella fracture Take 1 Tablet by mouth Every 6 hours. 12 Tablet 5 Active Active Problems No known active problems Encounters Date Type Department Care Team Description 02/23/2025 Transcribe Orders Centralized Scheduling [address] [place] [address] Selena Vegas MD Dementia of the Alzheimer's type with early onset without behavioral disturbance (Primary Dx); Alzheimer's disease (CMS/HCC) from Last 3 Months Family History Medical History Relation Name Comments Heart Disease Brother Heart Disease Father Cancer Maternal Grandmother Heart Disease Mother Breast Cancer Neg Hx Relation Name Status Comments Brother Alive Father Maternal Grandmother Mother Alive Social History Tobacco Use Types Packs/Day Years Used Date Smoking Tobacco: Former Cigarettes Smokeless Tobacco: Never Tobacco Cessation:Counseling Given: Not Answered Comments:stopped 30 yrs ago Alcohol Use Standard Drinks/Week Comments No 0 (1 standard drink = 0.6 oz pur e alcohol) Comments No Sex and Gender Information Value Date Recorded Sex Assigned at Not on file Legal Sex Female 7:30 PM EST Gender Identity Not on file Sexual Orientation Not on file Last Filed Vital Signs Vital Sign Reading Time Taken Comments Blood Pressure 152/89 09/06/2024 2:35 PM EST Pulse 69 09/06/2024 2:35 PM EST Temperature 36.4 C (97.5 F) 09/06/2024 9:59 AM EST Respiratory Rate 18 09/06/2024 9:59 AM EST Oxygen Saturation 99% 09/06/2024 2:35 PM EST Inhaled Oxygen Concentration - - Weight 71.8 kg (158 lb 6.4 oz) 06/17/2024 11:17 AM EST Height 160 cm (5' 3 ) 09/06/2024 9:59 AM EST Body Mass Index 28.06 06/17/2024 11:17 AM EST Plan of Treatment Health Maintenance Due Date Last Done Comments COLOGUARD 1950 COLONOSCOPY 1950 Colorectal Screening Combination 1950 FIT 1950 HEP C SCREENING 1950 SIGMOIDOSCOPY 1950 ANNUAL WELLNESS EXAM 1953 PNEUMOCOCCAL VACCINE 65+ YEA RS (1 of 1 - PCV) 2000 Shingles Vaccine (Shingrix) (1 of 2) 2000 ANNUAL MAMMOGRAM 07/26/2023 07/25/2022, 07/19/2021, 04/03/2019 INFLUENZA VACCINE (#1) 2025 DEXA SCAN EVERY 2 YR (Osteoporosis Screen) 10/28/2026 10/28/2024, 03/31/2003 DTAP/TDAP/TD VACCINE (2 - Td or Tdap) 03/29/2032 03/29/2022, 01/02/2014 HEP A VACCINE Aged Out No longer elig ible based on patient's age to complete this topic HIB VACCINE Aged Out No longer eligi ble based on patient's age to complete this topic ROTOVIRUS VACCINE Aged Out No longer eligible based on patient's age to complete this topic Procedures Procedure Name Priority Date/Time Associated Diagnosis Comments DEXA BONE DENSITY SPINE AND HIP Routine 10/28/2024 10:35 AM EDT Osteoporosis MAMMO SCREENING (3D) BILATERAL Routine 07/25/2022 10:17 AM EST Encounter for screening mammogram for malignant neoplasm of breast from Last 3 Months or Most Recently Relevant to Health Maintenance Results * Dexa Bone Density Spine And Hip (10/28/2024 10:35 AM EDT) Anatomical Region Laterality Modality hip, C-spine, T-spine, L-spine M ammography 10/28/2024 Narrative 10/28/2024 10:46 AM EDT [facility] [address] [place] [address] Radiology PATIENT NAME: Eduarda Jamison MR#: [id number] PROCEDURE DATE: 10/28/2024 ROOM#: ORDERING PHYS: Koko J O'Ipava Dexa Scan History: Osteoporosis screening, no additional clinical history provided Comparison:None Findings: The t-score of the lumbar spine from L1-L4 measured -3.2. The t-score of the left femoral neck measured -2.8. Impression: Osteoporosis. Treatment and follow-up is advised. THIS IS AN ELECTRONICALLY VERIFIED REPORT 10/28/2024 10:46 AM: MD Luke Koehler MD barrie TD: 10/28/2024 JOB #: [id number] Radiology Page 1 of 1 COPY Procedure Note Luke Layne MD - 10/28/2024 [place] [address] Radiology PATIENT NAME: Eduarda Jamison MR#: [id number] PROCEDURE DATE: 10/28/2024 ROOM#: ORDERING PHYS: Koko J O'Ipava Dexa Scan History: Osteoporosis screening, no additional clinical history provided Comparison:None Findings: The t-score of the lumbar spine from L1-L4 measured -3.2.The t-score of the left femoral neck measured -2.8. Impression: Osteoporosis. Treatment and follow-up is advised. THIS IS AN ELECTRONICALLY VERIFIED REPORT 10/28/2024 10:46 AM: MD Luke Koehler MD barrie TD: 10/28/2024 JOB #: [id number] Radiology Page 1 of 1COPY Koko Mejia MD IMG DEXA ORDERABLES Final Result * Mammo Screening (3D) Bilateral (07/25/2022 10:17 AM EST) Anatomical Region Laterality Modality breast Bilateral Mammography Narrative 07/25/2022 10:50 AM EST Examination: Screening bilateral mammogram. Comparison: 07/19/2021 and 04/03/2019. Clinical History: Screening mammogram. Risk Factors: No reported family history of breast cancer. Tissue Density C: Heterogeneously dense; may lower the sensitivity of mammography. Findings: Bilateral digital breast tomosynthesis and C views are performed in the CC and MLO views. There is the appearance of nodular focal asymmetry with associated potential mild architectural distortion/spiculation at the upper outer quadrant left breast near the junction of the anterior and middle depth. There is also demonstration of vascular calcifications and a few other scattered calcifications. Impression: 1. Finding in the left breast requires additional evaluation. ACR BI-RADS CATEGORY 0-Incomplete. Needs additional imaging evaluation. 2. Benign findings right breast. ACR BI-RADS CATEGORY 2. Recommendations: Additional views of the left breast. Patient information entered into a reminder system with a target due date for the next mammogram. Computer-aided detection was utilized for the interpretation of this exam. Eight to ten percent of breast cancers are not detected by mammography. Annual breast exams by your physician and monthly self-examinations are strongly recommended. This combined with mammography will increase the likelihood for early detection of breast cancer. THIS IS AN ELECTRONICALLY VERIFIED REPORT Milton Bradford MD bks us Self Referral IMG MAMMOGRAPHY ORDERABLES Final Result from Last 3 Months or Most Recently Relevant to Health Maintenance Insurance MEDICARE [facility] Care Teams Photovoltaic Solar Cell Designer Relationship Specialty Start Date End Date Koko Mejia MD [address] [facility] [address] [place] [address] PCP - General Internal Medicine 04/02/19 Waqas Llamas MD [address] [facility] [address] [place] [address] Obstetrics & Gynecology 02/10/18 Quirino Llamas MD [address] [facility] [address] [place] [address] Obstetrics & Gynecology 02/24/19 Stacie Yancey LPN 08/03/21 Lupe Hays APRN [address] [facility] [address] [place] [address] Nurse Practitioner 08/08/21
--- OUTSIDE RECORDS SUMMARY | 2025-02-24 10:20 | XMS_ITS | Encounter Summary ---
Author Organization [facility] Address [address] [facility] [place] [address] Care Team Providers Care Emergency Veterinary Technician Name Role Phone lEio Rush MD Primary Care Provider Unavaila Waqas Vega MD Unavailable [phone] Quirino Llamas MD Unavailable Koko Mejia MD Primary Care Provider [phone] Stacie Yancey BUILD AUTOMATION ENGINEER Unavailable Unavailable Lupe Hays APRN Unavailable [phone] Encounter Details Date Type Department Care Team (Late st Contact Info) Description 09/04/2001 Historical Encounter Global Waqas Simpson MD [address] [...] documented as of this encounter Care Teams Emergency Veterinary Technician Relationship Specialty Start Date End Date Elio Rush MD PCP - General 07/14/08 04/01/19 Koko Mejia MD [address] [facility]. [address] [place] [address] PCP - General Internal Medicine 04/02/19 Waqas Llamas MD [address] [facility] [address] [place] [address] Obstetrics & Gynecology 02/10/18 Quirino Llamas MD [address] [facility] [address] [place] [address] Obstetrics & Gynecology 02/24/19 Stacie Yancey LPN 08/03/21 Lupe Hays APRN [address] [facility] [address] [place] [address] Nurse Practitioner 08/08/21 documented as of this encounter
--- OUTSIDE RECORDS SUMMARY | 2025-02-24 10:20 | XMS_ITS | Encounter Summary ---
Author Organization [facility] Address [address] [facility] [place] [address] Care Team Providers Care Dry Chain Puller Name Role Phone Elio Rush MD Primary Care Provider Unavaila [facility] Waqas Llamas MD Unavailable Quirino Llamas MD Unavailable Koko Mejia MD Primary Care Provider Stacie Yancey SCRAP IRON CUTTER Unavailable Unavailable Lupe Hays APRN Unavailable Encounter Details Date Type Department Care Team (Late st Contact Info) Description 07/21/1998 Historical Encounter Global Quirino Llamas MD [address] [facility] [address] [place] [address] Social History Tobacco Use Types [...] documented as of this encounter Care Teams Dry Chain Puller Relationship Specialty Start Date End Date Elio Rush MD PCP - General 07/14/08 04/01/19 Koko Mejia MD [address] [place] [address] [facility]. [address] [place] [address] PCP - General Internal Medicine 04/02/19 Waqas Llamas MD [address] [facility] [address] [place] [address] Obstetrics & Gynecology 02/10/18 Quirino Llamas MD [address] [facility] [address] [place] [address] Obstetrics & Gynecology 02/24/19 Stacie Yancey LPN 08/03/21 Lupe Hays APRN [address] [place] [address] Nurse Practitioner 08/08/21 documented as of this encounter
--- OUTSIDE RECORDS SUMMARY | 2025-02-24 10:20 | XMS_ITS | Encounter Summary ---
Author Organization [facility] Address [address] [facility] [place] [address] Care Team Providers Care Manager Utilities Name Role Phone Waqas Llamas MD Unavailable [phone] Quirino Llamas MD Unavailable Koko Mejia MD Primary Care Provider [phone] Stacie Yancey CARTOON ANIMATOR Unavailable Unavailable Lupe Hays APRN Unavailable [phone] Reason for Referral * Radiology Services (Routine) - Pending Review Specialty Diagnoses / Procedures Referred By Contac t Referred To Contact Diagnoses Dementia of the Alzheimer's type with early onset without behavioral disturbance (CMS/HCC) Alzheimer's disease (CMS/HCC) Procedures MRI Head WO Contrast Selena Vegas MD [address] [place] [address] [address] [place] [address] Phone: tel: fax: Referral ID Status Reason Start Date Expiration Date V isits Requested Visits Authorized [id number] Pending Review 02/23/2025 02/23/2026 1 1 Encounter Details Date Type Department Care Team (Late st Contact Info) Description 02/23/2025 Transcribe Orders Centralized Scheduling [address] [facility] [facility] [place] [address] Selena Vegas MD [address] [place] [address] Dementia of the Alzheimer's type with early onset without behavioral disturbance (Primary Dx); Alzheimer's disease (CMS/HCC) Social History Tobacco Use Types Packs/Day Years Used Date Smoking Tobacco: Former Cigarettes Smokeless Tobacco: Never Comments:stopped 30 yrs ago Alcohol Use Standard Drinks/Week Comments No 0 (1 standard drink = 0.6 oz pur e alcohol) Comments No Sex and Gender Information Value Date Recorded Sex Assigned at Not on file Legal Sex Female 7:30 PM EST Gender Identity Not on file Sexual Orientation Not on file documented as of this encounter Plan of Treatment Scheduled Orders Name Type Priority Associated Diagnoses Orde r Schedule MRI Head WO Contrast Imaging Routine Dementia of the Alzheimer's type with early onset without behavioral disturbance (CMS/HCC) Alzheimer's disease (CMS/HCC) 1 Occurrences starting 02/23/2025 until 02/23/2026 documented as of this encounter Visit Diagnoses Diagnosis Dementia of the Alzheimer's type with early onset without behavioral disturbance (CMS/HCC)- Primary Alzheimer's disease (CMS/HCC) Alzheimer's disease documented in this encounter Additional Health Concerns Assessment Noted Time PHQ-9 Depression Total Score: 0 02/25/20 10:04 AM EDT documented as of this encounter Care Teams Manager Utilities Relationship Specialty Start Date End Date Koko Mejia MD [address] [facility] [address] [place]. [address] [place] [address] PCP - General Internal Medicine 04/02/19 Waqas Llamas MD [address] [facility] [address] [place] [address] Obstetrics & Gynecology 02/10/18 Quirino Llamas MD [address] [facility] [address] [place] [address] Obstetrics & Gynecology 02/24/19 Stacie Yancey LPN 08/03/21 Lupe Hays APRN 2[address] [facility] 1 [place] [address] Nurse Practitioner 08/08/21 documented as of this encounter
--- OUTSIDE RECORDS SUMMARY | 2025-02-24 10:20 | XMS_ITS | Encounter Summary ---
Author Organization [facility] Address [address] [facility] [place] [address] Care Team Providers Care Foreign Diplomat Name Role Phone Elio Rush MD Primary Care Provider Unavaila banner Waqas Llamas MD Unavailable [phone] Quirino Llamas MD Unavailable Koko Mejia MD Primary Care Provider Stacie Yancey DAMAGE INSIDE ADJUSTER Unavailable Unavailable Lupe Hays APRN Unavailable [phone] Encounter Details Date Type Department Care Team (Late st Contact Info) Description 03/31/2003 Historical Encounter Global Quirino Llamas MD [address] [facility] [address] [place] [address] Social History Tobacco Use Types [...] documented as of this encounter Care Teams Foreign Diplomat Relationship Specialty Start Date End Date Elio Rush MD PCP - General 07/14/08 04/01/19 Koko Mejia MD [address] [place] [address] [facility]. [address] [place] [address] PCP - General Internal Medicine 04/02/19 Waqas Llamas MD [address] [facility] [address] [place] [address] Obstetrics & Gynecology 02/10/18 Quirino Llamas MD [address] [facility] [address] [place] [address] Obstetrics & Gynecology 02/24/19 Stacie Yancey LPN 08/03/21 Lupe Hays APRN [address] [place] [address] Nurse Practitioner 08/08/21 documented as of this encounter
--- OUTSIDE RECORDS SUMMARY | 2025-02-24 10:20 | XMS_ITS | Encounter Summary ---
Author Organization [facility] Address [address] [facility] [place] [address] Care Team Providers Care Survey Instrument Operator Name Role Phone Elio Rush MD Primary Care Provider Unavaila Waqas Vega MD Unavailable [phone] Quirino Llamas MD Unavailable Koko Mejia MD Primary Care Provider Stacie Yancey DESKTOP PUBLISHING OPERATOR Unavailable Unavailable Lupe Hays APRN Unavailable [phone] Encounter Details Date Type Department Care Team (Late st Contact Info) Description 04/16/1996 Historical Encounter Global Waqas Simpson MD [address] [place] [address] Social History Tobacco Use Types Packs/Day [...] documented as of this encounter Care Teams Survey Instrument Operator Relationship Specialty Start Date End Date Elio Rush MD PCP - General 07/14/08 04/01/19 Koko Mejia MD [address] [facility]. [address] [place] [address] PCP - General Internal Medicine 04/02/19 Waqas Llamas MD [address] [facility] [address] [place] [address] Obstetrics & Gynecology 02/10/18 Quirino Llamas MD [address] [facility] [address] [place] [address] Obstetrics & Gynecology 02/24/19 Stacie Yancey LPN 08/03/21 Lupe Hays APRN [address] [facility] [address] [place] [address] Nurse Practitioner 08/08/21 documented as of this encounter
--- OUTSIDE RECORDS SUMMARY | 2025-02-24 10:20 | XMS_ITS | Encounter Summary ---
Author Organization [facility] Address [address] [facility] [place] [address] Care Team Providers Care Commercial Property Manager Name Role Phone Elio Rush MD Primary Care Provider Unavaila [facility] Waqas Llamas MD Unavailable Quirino Llamas MD Unavailable Koko Mejia MD Primary Care Provider Stacie Yancey LPN Unavailable Unavailable Lupe Hays APRN Unavailable Encounter Details Date Type Department Care Team (Late st Contact Info) Description 05/17/1994 Historical Encounter Global Social History Tobacco Use Types Packs/Day Years [...] 22 8:27 PM EST Covid-19 (confirmed) 08/11/2021 08/11/202109/21/ 022 10:14 PM EDT Covid-19 (rule out) 09/07/2021 09/07/2021 09/08/19 22 2:53 PM EST documented as of this encounter Care Teams Commercial Property Manager Relationship Specialty Start Date End Date Elio Rush MD PCP - General 07/14/08 04/01/19 Koko Mejia MD 700 [facility] [address] [place] [address] PCP - General Internal Medicine 04/02/19 Waqas Llamas MD [address] [place] [address] Obstetrics & Gynecology 02/10/18 Quirino Llamas MD [address] [facility] [address] [place] [address] Obstetrics & Gynecology 02/24/19 Stacie Yancey LPN 08/03/21 Lupe Hays APRN [address] [facility] [address] [place] [address] Nurse Practitioner 08/08/21 documented as of this encounter
--- OUTSIDE RECORDS SUMMARY | 2025-02-24 10:20 | XMS_ITS | Encounter Summary ---
Author Organization [facility] Address [address] [facility] [place] [address] Care Team Providers Care Rn Chronic Name Role Phone Elio Rush MD Primary Care Provider Unavaila banner Waqas Llamas MD Unavailable Quirino Llamas MD Unavailable Koko Mejia MD Primary Care Provider Stacie Yancey RN WOUND CARE Unavailable Unavailable Lupe Hays APRN Unavailable [phone] Encounter Details Date Type Department Care Team (Late st Contact Info) Description 09/22/1998 Historical Encounter Global Quirino Llamas MD [address] [facility] [address] [place] [address] Social History Tobacco Use Types [...] documented as of this encounter Care Teams Rn Chronic Relationship Specialty Start Date End Date Elio Rush MD PCP - General 07/14/08 04/01/19 Koko Mejia MD [address] [place] [address] [facility]. [address] [place] [address] PCP - General Internal Medicine 04/02/19 Waqas Llamas MD [address] [facility] [address] [place] [address] Obstetrics & Gynecology 02/10/18 Quirino Llamas MD [address] [facility] [address] [place] [address] Obstetrics & Gynecology 02/24/19 Stacie Yancey LPN 08/03/21 Lupe Hays APRN [address] [place] [address] Nurse Practitioner 08/08/21 documented as of this encounter
--- OUTSIDE RECORDS SUMMARY | 2025-02-24 10:20 | XMS_ITS | Encounter Summary ---
Author Organization [facility] Address [address] [facility] [place] [address] Care Team Providers Care Theatrical Performer Name Role Phone Elio Rush MD Primary Care Provider Unavaila [facility] Waqas Llamas MD Unavailable Quirino Llamas MD Unavailable Koko Mejia MD Primary Care Provider [phone] Stacie Yancey LEAVE SPECIALIST Unavailable Unavailable Lupe Hays APRN Unavailable Encounter Details Date Type Department Care Team (Late st Contact Info) Description 01/05/2005 Historical Encounter Global Quirino Llamas MD [address] [facility] [address] [place] [address] Social History Tobacco Use Types [...] documented as of this encounter Care Teams Theatrical Performer Relationship Specialty Start Date End Date Elio Rush MD PCP - General 07/14/08 04/01/19 Koko Mejia MD [address] [place] [address] [facility]. [address] [place] [address] PCP - General Internal Medicine 04/02/19 Waqas Llamas MD [address] [facility] [address] [place] [address] Obstetrics & Gynecology 02/10/18 Quirino Llamas MD [address] [facility] [address] [place] [address] Obstetrics & Gynecology 02/24/19 Stacie Yancey LPN 08/03/21 Lupe Hays APRN [address] [place] [address] Nurse Practitioner 08/08/21 documented as of this encounter
--- OUTSIDE RECORDS SUMMARY | 2025-02-24 10:20 | XMS_ITS | Encounter Summary ---
Author Organization [facility] Address [address] [facility] [place] [address] Care Team Providers Care Mine Administrator Supervisor Name Role Phone Elio Rush MD Primary Care Provider Unavaila [facility] Waqas Llamas MD Unavailable [phone] Quirino Llamas MD Unavailable Koko Mejia MD Primary Care Provider [phone] Stacie Yancey LPN Unavailable Unavailable Lupe Hays APRN Unavailable [phone] Encounter Details Date Type Department Care Team (Late st Contact Info) Description 09/25/1991 Historical Encounter Global Sid White Social History Tobacco Use Types Packs/Day Years [...] 10:14 PM EDT Covid-19 (rule out) 09/07/2021 09/07/202120 22 2:53 PM EST documented as of this encounter Care Teams Mine Administrator Supervisor Relationship Specialty Start Date End Date Elio Rush MD PCP - General 07/14/08 04/01/19 Koko Mejia MD [address] [facility] [address] [place] [address] PCP - General Internal Medicine 04/02/19 Waqas Llamas MD [address] [facility] [address] [place] [address] Obstetrics & Gynecology 02/10/18 Quirino Llamas MD [address] [facility] [address] [place] [address] Obstetrics & Gynecology 02/24/19 Stacie Yancey LPN 08/03/21 Lupe Hays APRN [address] [facility] [address] [place] [address] Nurse Practitioner 08/08/21 documented as of this encounter
--- OUTSIDE RECORDS SUMMARY | 2025-02-24 10:20 | XMS_ITS | Encounter Summary ---
Author Organization [facility] Address [address] [facility] [place] [address] Care Team Providers Care Hardboard Press Operator Name Role Phone Elio Rush MD Primary Care Provider Unavaila [facility] Waqas Llamas MD Unavailable Quirino Llamas MD Unavailable Koko Mejia MD Primary Care Provider Stacie Yancey BRACE END MAINSPRING FORMER Unavailable Unavailable Lupe Hays APRN Unavailable [phone] Encounter Details Date Type Department Care Team (Late st Contact Info) Description 05/22/2000 Historical Encounter Global Quirino Llamas MD [address] [facility] [address] [place] [address] Social History Tobacco Use Types [...] documented as of this encounter Care Teams Hardboard Press Operator Relationship Specialty Start Date End Date Elio Rush MD PCP - General 07/14/08 04/01/19 Koko Mejia MD [address] [place] [address] [facility]. [address] [place] [address] PCP - General Internal Medicine 04/02/19 Waqas Llamas MD [address] [facility] [address] [place] [address] Obstetrics & Gynecology 02/10/18 Quirino Llamas MD [address] [facility] [address] [place] [address] Obstetrics & Gynecology 02/24/19 Stacie Yancey LPN 08/03/21 Lupe Hays APRN [address] [place] [address] Nurse Practitioner 08/08/21 documented as of this encounter
--- OUTSIDE RECORDS SUMMARY | 2025-02-24 10:20 | XMS_ITS | Encounter Summary ---
Author Organization [facility] Address [address] [place] [address] Care Team Providers Care Tunnel Drier Operator Name Role Phone Elio Rush MD Primary Care Provider Unavaila [facility] Waqas Llamas MD Unavailable Quirino Llamas MD Unavailable Koko Mejia MD Primary Care Provider Stacie Yancey SENIOR TALENT ACQUISITION SPECIALIST Unavailable Unavailable Lupe Hays APRN Unavailable Encounter Details Date Type Department Care Team (Late st Contact Info) Description 06/23/2008 Transcribe Orders Centralized Scheduling [address] [facility] [place] [address] Quirino Llamas MD [address] [facility] [address] [place] [id number] Other Screening Mammogram (Primary Dx) Social History Tobacco Use Types Packs/Day Years Used Date Smoking Tobacco: Never Assessed Comments Unknown Sex and Gender Information Value Date Recorded Sex Assigned at Not on file Legal Sex Female 7:30 PM EST Gender Identity Not on file Sexual Orientation Not on file documented as of this encounter Plan of Treatment Not on file documented as of this encounter Results * Mammo Digital Screening Bilateral (07/19/2008 3:30 PM EST) Anatomical Region Laterality Modality breast Bilateral Mammography Narrative 07/20/2008 4:18 PM EST Clinical History: 57-year-old screening bilateral mammogram. Comparison: 01/05/05 Risk Factors: Denies family history of breast cancer. Tissue Density: II: Scattered fibroglandular densities that could obscure a lesion. Full Result: Digital MLO and CC views again show what appears to be some minimal secretory calcifications in the right breast manifest by three calcifications in a slightly linear arrangement in the anteromedial aspect. Minimal vascular calcifications are present bilaterally. No malignant findings and no significant interval change. Impression: Normal screening bilateral mammogram. ACR BI-RADS 2. Recommendation: Screening bilateral mammogram in one year. Computer-aided detection was utilized for the interpretation of this exam. Eight to ten percent of breast cancers are not detected by mammography. Annual breast exam by your physician and monthly self examinations are strongly recommended. This combined with mammography will increase the likelihood of early detection of breast cancer. Procedure Note Jori Vázquez - 07/20/2008 Clinical History: 57-year-old screening bilateral mammogram. Comparison: 01/05/05 Risk Factors: Denies family history of breast cancer. Tissue Density: II: Scattered fibroglandular densities that couldobscure a lesion. Full Result: Digital MLO and CC views again show what appears to be someminimal secretory calcifications in the right breast manifest by threecalcifications in a slightly linear arrangement in the anteromedialaspect. Minimal vascular calcifications are present bilaterally. Nomalignant findings and no significant interval change. Impression: Normal screening bilateral mammogram. ACR BI-RADS 2. Recommendation: Screening bilateral mammogram in one year. Computer-aided detection was utilized for the interpretation of this exam. Eight to ten percent of breast cancers are not detected by mammography.Annual breast exam by your physician and monthly self examinations arestrongly recommended. This combined with mammography will increase thelikelihood of early detection of breast cancer. Quirino Llamas MD IMG MAMMOGRAPHY ORDERABLES Final Result documented in this encounter Visit Diagnoses Diagnosis Other screening mammogram- Primary Other screening mammogram documented in this encounter Additional Health Concerns Infection Onset Date Last Indicated Resolved Time Covid-19 (rule out) 08/11/2021 08/11/2021 08/11/19 22 8:27 PM EST Covid-19 (confirmed) 08/11/2021 08/11/2021 022 10:14 PM EDT Covid-19 (rule out) 09/07/2021 09/07/2021 09/08/19 22 2:53 PM EST documented as of this encounter Care Teams Tunnel Drier Operator Relationship Specialty Start Date End Date Elio Rush MD PCP - General 07/14/08 04/01/19 Koko Mejia MD [address] [place] [address] [address] [place] [address] PCP - General Internal Medicine 04/02/19 Waqas Llamas MD [address] [facility] [address] [place] [address] Obstetrics & Gynecology 02/10/18 Quirino Llamas MD [address] [facility] [address] [place], [place] [address] Obstetrics & Gynecology 02/24/19 Stacie Yancey LPN 08/03/21 Lupe Hays APRN [address] [facility] [address] [place] [address] Nurse Practitioner 08/08/21 documented as of this encounter
--- OUTSIDE RECORDS SUMMARY | 2025-02-24 10:20 | XMS_ITS | Encounter Summary ---
Author Organization [facility] Address [address] [facility] [place] [address] Care Team Providers Care Occup Therapist Name Role Phone Elio Rush MD Primary Care Provider Unavaila [facility] Waqas Llamas MD Unavailable Quirino Llamas MD Unavailable Koko Mejia MD Primary Care Provider [phone] Stacie Yancey SUPERVISOR MOLD CONSTRUCTION Unavailable Unavailable Lupe Hays APRN Unavailable Encounter Details Date Type Department Care Team (Late st Contact Info) Description 11/13/2002 Historical Encounter Global Quirino Llamas MD [address] [facility] [address] [place] [address] Social History Tobacco Use Types [...] documented as of this encounter Care Teams Occup Therapist Relationship Specialty Start Date End Date Elio Rush MD PCP - General 07/14/08 04/01/19 Koko Mejia MD [address] [place] [address] [facility]. [address] [place] [address] PCP - General Internal Medicine 04/02/19 Waqas Llamas MD [address] [facility] [address] [place] [address] Obstetrics & Gynecology 02/10/18 Quirino Llamas MD [address] [facility] [address] [place] [address] Obstetrics & Gynecology 02/24/19 Stacie Yancey LPN 08/03/21 Lupe Hays APRN [address] [place] [address] Nurse Practitioner 08/08/21 documented as of this encounter
--- OUTSIDE RECORDS SUMMARY | 2025-02-24 10:20 | XMS_ITS | Encounter Summary ---
Author Organization [facility] Address [address] [facility] [place] [address] Care Team Providers Care Assessment Manager Name Role Phone Elio Rush MD Primary Care Provider Unavaila [facility] Waqas Llamas MD Unavailable Quirino Llamas MD Unavailable Koko Mejia MD Primary Care Provider Stacie Yancey TEACHER'S ASSISTANT Unavailable Unavailable Lupe Hays APRN Unavailable Encounter Details Date Type Department Care Team (Late st Contact Info) Description 06/10/2000 Historical Encounter Global Quirino Llamas MD [address] [facility] [address] [place] [address] Social History Tobacco Use Types [...] documented as of this encounter Care Teams Assessment Manager Relationship Specialty Start Date End Date Elio Rush MD PCP - General 07/14/08 04/01/19 Koko Mejia MD [address] [place] [address] [facility]. [address] [place] [address] PCP - General Internal Medicine 04/02/19 Waqas Llamas MD [address] [facility] [address] [place] [address] Obstetrics & Gynecology 02/10/18 Quirino Llamas MD [address] [facility] [address] [place] [address] Obstetrics & Gynecology 02/24/19 Stacie Yancey LPN 08/03/21 Lupe Hays APRN [address] [place] [address] Nurse Practitioner 08/08/21 documented as of this encounter
--- OUTSIDE RECORDS SUMMARY | 2025-02-24 10:20 | XMS_ITS | Encounter Summary ---
Author Organization [facility] Address [address] [facility] [place] [address] Care Team Providers Care Tree Loader Meat Name Role Phone Elio Rush MD Primary Care Provider Unavaila [facility] Waqas Llamas MD Unavailable Quirino Llamas MD Unavailable Koko Mejia MD Primary Care Provider [phone] Stacie Yancey SECURITIES ADVISER Unavailable Unavailable Lupe Hays APRN Unavailable [phone] Encounter Details Date Type Department Care Team (Late st Contact Info) Description 02/19/2000 Historical Encounter Global Quirino Llamas MD [address] [facility] [address] [place] [address] Social History Tobacco Use Types [...] documented as of this encounter Care Teams Tree Loader Meat Relationship Specialty Start Date End Date Elio Rush MD PCP - General 07/14/08 04/01/19 Koko Mejia MD [address] [place] [address] [facility]. [address] [place] [address] PCP - General Internal Medicine 04/02/19 Waqas Llamas MD [address] [facility] [address] [place] [address] Obstetrics & Gynecology 02/10/18 Quirino Llamas MD [address] [facility] [address] [place] [address] Obstetrics & Gynecology 02/24/19 Stacie Yancey LPN 08/03/21 Lupe Hays APRN [address] [place] [address] Nurse Practitioner 08/08/21 documented as of this encounter
== END 2025-02-24 23:59 | disposition home or self-care (01) ==
LOC: INF 09:59
PROVIDERS: Visit Provider Internal Medicine Medical Oncology
DX: C50.912 Malignant neoplasm of unspecified site of left female breast (principal)

== ENCOUNTER 2025-05-27 10:31 | Outpatient (CLI) | payer MEDICARE, SELFPAY ==
--- OUTSIDE RECORDS SUMMARY | 2025-05-03 07:27 | XMS_ITS | Encounter Summary ---
Author Organization [facility] ([place], [place], [place], [place], [place]) Address [address] [place] [address] Care Team Providers Care Global Marketing Coordinator Name Role Phone Koko Mejia MD Primary Care Provider [phone] Selena Vegas MD Unavailable Reason for Visit * Episode Based Medication (Routine) - Authorized Specialty Diagnoses / Procedures Referred By Contac t Referred To Contact Infusion Therapy Diagnoses Encounter for examination for normal comparison and control in clinical research program Procedures [place] INJ, DONANEMAB-AZBT, 2 MG [facility] INFUSION/INJECTION Koko Mejia MD [address] [facility] [address] [facility] [place] [address] Phone: tel: fax: [facility] [address] [place] [address] Phone: tel: fax: Referral ID Status Reason Start Date Expiration Date V isits Requested Visits Authorized [id number] Authorized 04/07/2025 07/07/[phone] Encounter Details Date Type Department Care Team (Latest Contact Info) Description 05/03/2025 8:27 AM EDT - 05/03/2025 10:59 PM EDT Hospital Encounter [facility] [address] [place] [address] Alzheimer dementia (HCC) (Primary Dx) Discharge Disposition: Home or Self Care Social History Tobacco Use Types Packs/Day Years Used Date Smoking Tobacco: Former Cigarettes 0.5 18 0 08/08/1971 - 08/20/1989 Smokeless Tobacco: Never Tobacco Cessation:Counseling Given: Not Answered Alcohol Use Standard Drinks/Week Comments Never 0 (1 standard drink = 0.6 oz pur e alcohol) Family and Community Support Answer Billy e Recorded Help with Day to Day Activities Not on file 07/18/2023 Feeling Lonely or Isolated Not on file 07/18 Educational Attainment Answer Date Gerard rded Speak language other than Greek at home Not on file 07/18/2023 Want help with school or training Not on file 07/18/2023 Substance Use Answer Date Recorded Used prescription meds for non-medical reasons N ot on file 07/18/2023 Used illegal drugs past 12 months Not on file 07/18/2023 Comments No Sex and Gender Information Value Date Recorded Sex Assigned at Female 04/14/2024 11:58 AM CDT Legal Sex Female 7:07 PM CDT Gender Identity Not on file Sexual Orientation Not on file documented as of this encounter Last Filed Vital Signs Vital Sign Reading Time Taken Comments Blood Pressure 159/85 05/03/2025 11:40 AM EDT Pulse 59 05/03/2025 11:40 AM EDT Temperature - - Respiratory Rate 18 05/03/2025 9:41 AM EDT Oxygen Saturation 98% 05/03/2025 9:41 AM EDT Inhaled Oxygen Concentration - - Weight 69.4 kg (153 lb) 05/03/2025 9:41 AM EDT Height 157.5 cm (5' 2 ) 05/03/2025 9:41 AM EDT Body Mass Index 27.98 05/03/2025 9:41 AM EDT documented in this encounter Medications at Time of Discharge acetaminophen (TYLENOL) 325 MG tablet Take 2 tablets (650 mg total) by mouth once at bedtime. anastrozole (ARIMIDEX) 1 mg tablet Take 1 tablet (1 mg total) by mouth daily. 90 tablet 3 06/03/2023 aspirin 81 MG EC tablet Take 1 tablet (81 mg total) by mouth in the morning. atorvastatin (LIPITOR) 20 MG tablet Take 1 tablet (20 mg total) by mouth nightly. 12/16/2023 calcium-vitamin D 250 mg-2.5 mcg (100 unit) per tablet Take by mouth. cyanocobalamin (VITAMIN B-12) 1000 MCG tablet Take 1 tablet (1,000 mcg total) by mouth. estradioL (ESTRACE) 0.01 % (0.1 mg/gram) vaginal creamIndications :Vaginal atrophy To start new medication: 2G vaginally every night for 2 weeks. Instructions going forward- 1G twice a week. 42.5 g 3 12/24/2024 fluocinolone acetonide oiL 0.01 % Drop 12/26/2023 levothyroxine (SYNTHROID, LEVOTHROID) 125 MCG tablet Take 1 tablet (125 mcg total) by mouth. memantine (NAMENDA) 10 MG tabletIndication s:Subjective memory complaints Take 1 tablet (10 mg total) by mouth 2 (two) times daily. 180 tablet 3 12/02/2024 multivitamin per tablet Take 1 tablet by mouth daily. pyridoxine, vitamin B6, (B-6) 100 MG tablet Take 1 tablet (100 mg total) by mouth. sertraline (ZOLOFT) 50 MG tablet Take 1 tablet (50 mg total) by mouth. documented as of this encounter Progress Notes * Altagracia Manuel RN - 05/03/2025 11:00 AM EDT 1140 Patient discharged home with family, no reaction noted from the first kisunla infusion, VSS, instructed to drink plenty of fluids. DC home. documented in this encounter Plan of Treatment Upcoming Encounters Date Type Department Care Team (Late st Contact Info) Description 06/02/2025 11:30 AM EST Office Visit [facility] Neurology - [facility] [address] [facility] [address] [place] [phone] Selena Vegas MD [address] [facility] [address] [place] [address] 06/02/2025 1:00 PM EST Appointment [facility] [address] [place] [address] 06/24/2025 1:15 PM EST Office Visit [facility] ELECTRONICS MECHANIC APPRENTICE - [address] [place] [phone] Erica Summers MD [address] [facility] [address] [place], [place] [id number] documented as of this encounter Visit Diagnoses Diagnosis Alzheimer dementia (HCC)- Primary documented in this encounter Administered Medications Inactive Administered Medications - up to 3 most recent administrations Medication Order MAR Action Action Date Dose Rate Site acetaminophen (TYLENOL) 325 MG tablet Starting on Sat05/03/25 at 0950, For 1 dose, Created by cabinet override acetaminophen (TYLENOL) tablet 650 mg 650 mg Once, oral, On Sat05/03/25 at 1030, For 1 dose, Recommended maximum dose of acetaminophen is 4000 mg from all sources in 24 hours. Premed 30-60 minutes before each dose.Indications:Alzheimer dementia (HCC) Given 05/03/2025 10:29 AM EDT 650 mg diphenhydrAMINE (BENADRYL) 25 mg tablet Starting on Sat05/03/25 at 0950, For 1 dose, Created by cabinet override Given 05/03/2025 10:29 AM EDT 25 mg donanemab-azbt (KISUNLA) 350 mg in sodium chloride 0.9 % (NS) 100 mL infusion 350 mg Once, intravenous, Administer over 30 Minutes, On Sat05/03/25 at 1030, For 1 dose, Flush line with NS after infusion is complete. Observe for infusion and hypersensitivity reactions during infusion and for at least 30 minutes post infusion. Discontinue infusion if hypersensitivity reaction.Indications:Alzheimer dementia (HCC) IVPB Started 05/03/2025 10:30 AM EDT 350 mg 200 mL/hr documented in this encounter Care Teams Global Marketing Coordinator Relationship Specialty Start Date End Date Koko Mejia MD [address] [facility] [facility] [address]. [address] [place] [address] PCP - General Internal Medicine 08/20/22 Selena Veags MD [address] [facility] [place] [address] [address] Neurology 12/02/24 documented as of this encounter
--- OUTSIDE RECORDS SUMMARY | 2025-05-19 12:07 | XMS_ITS | Encounter Summary ---
Author Organization [facility] Address [address] [place] [address] Care Team Providers Care Supervisor Water Softener Service Name Role Phone Waqas Llamas MD Unavailable [phone] Quirino Llamas MD Unavailable Koko Mejia MD Primary Care Provider Stacie Yancey BRIDGE CRANE OPERATOR Unavailable Unavailable Lupe Hays APRN Unavailable [phone] Reason for Referral * Radiology Services (Routine) - Closed Specialty Diagnoses / Procedures Referred By Neri hand Referred To Contact Radiology Diagnoses Alzheimer's disease (CMS/HCC) Procedures MRI Head W WO Contrast Selena Vegas MD [address] [place] [address] [address] [place] [address] Phone: tel: fax: [facility] MRI [address] [place] [address] Phone: tel: Referral ID Status Reason Start Date Expiration Date Visits Re quested Visits Authorized [id number] Closed 03/11/2025 03/11/2026 1 1 Reason for Visit * Radiology Services (Routine) - Closed Specialty Diagnoses / Procedures Referred By Contcharlene hand Referred To Contact Radiology Diagnoses Alzheimer's disease (CMS/HCC) Procedures MRI Head W WO Contrast Selena Vegas MD [address] [place] [address] Phone: tel: fax: [facility] MRI [address] [place] [address] Phone: tel: Referral ID Status Reason Start Date Expiration Date Visits Re quested Visits Authorized [id number] Closed 03/11/2025 03/11/2026 1 1 Encounter Details Date Type Department Care Team (Latest Contact Info) Description 05/19/2025 12:07 PM EST - 05/19/2025 11:59 PM EST Hospital Encounter [facility] MRI [address] [place] [address] Selena Vegas MD [address] [facility] Center [address] [place] [address] Alzheimer's disease ([facility]) Discharge Disposition: Home or Self Care Social [...] on file documented as of this encounter Medications at Time of Discharge HYDROcodone-acet aminophen (NORCO) 5-325 mg per tabletIndication s:Right patella fracture Take 1 Tablet by mouth Every 6 hours. 12 Tablet 09/06/2024 INTRAROSA 6.5 mg Inst 09/10/2023 anastrozole (ARIMIDEX) 1 mg 09/02/2023 abemaciclib (VERZENIO) 150 mg tablet Take 150 mg by mouth. 06/03/2023 acetaminophen (TYLENOL) 325 mg tablet Take 650 mg by mouth. clopidogreL (PLAVIX) 75 mg tablet Take 75 mg by mouth Daily. aspirin 81 mg chewable tablet Take 81 mg by mouth Daily. estradiol (IMVEXXY VA) by Vaginal route. ascorbic acid (VITAMIN C PO) Take by mouth. cyanocobalamin, vitamin B-12, (VITAMIN B-12 PO) Take by mouth. TURMERIC PO Take by mouth. ergocalciferol, vitamin D2, (VITAMIN D PO) Take by mouth. docosahexanoic acid (DHA PO) Take by mouth. levothyroxine (SYNTHROID) 125 mcg tablet Take 125 mcg by mouth Once Daily. Hypo thyroid sertraline (ZOLOFT) 50 mg tablet Take 50 mg by mouth Once Daily. Anxiety,, Hot flashes atorvastatin (LIPITOR) 80 mg tablet Take 80 mg by mouth At bedtime. cholesterol documented as of this encounter Plan of Treatment Not on file documented as of this encounter Procedures Procedure Name Priority Date/Time Associated Diagnosis Comments MRI HEAD W WO CONTRAST Routine 05/19/2025 1:19 PM EST Alzheimer's disease ([facility]) documented in this encounter Results * MRI Head W WO Contrast (05/19/2025 1:19 PM EST) Anatomical Region Laterality Modality Head Magnetic Resonan ce 05/19/2025 Narrative 05/19/2025 1:40 [place] [address] Radiology PATIENT NAME: Eduarda Jamison MR#: [id number] PROCEDURE DATE: 05/19/2025 ROOM#: ORDERING PHYS: Selena Vegas EXAM: MRI Brain with and without contrast CLINICAL INDICATION: alzheimers. TECHNIQUE: Multiplanar multiecho sequences were performed through the brain utilizing T1 and T2 weighting, as well as either axial susceptibility weighted or gradient echo sequences, and axial diffusion weighted images. A coronal post-contrast 1mm thick T1-weighted, MP RAGE sequence was performed and multiplanar reformatted images were created. Imaging was performed with and without contrast administration: 7.2 mL of Elucirem. COMPARISON: A 03/06/2025 FINDINGS: Diagnostic Quality: Adequate There is global volume loss characterized by prominence of the ventricles and sulci. There are prominent perivascular spaces bilaterally within the basal ganglia and deep white matter regions. There are a mild to moderate amount of T2/FLAIR hyperintense white matter foci within both the supratentorial and infratentorial brain. There is a chronic infarct within the right cerebellar hemisphere. There are no definite focal parenchymal lesions or masses. Bilateral atrophy of the hippocampi. No abnormal intracranial enhancement is present. There is no abnormal parenchymal susceptibility artifact or restricted diffusion. Vascular Flow Voids: Normal. Paranasal Sinuses and Mastoid Air Cells: Grossly clear. Orbits: No definite masses within the limitations of the study. Extracranial Findings: None. Craniocervical Junction and Skull Base: No tonsillar ectopia or mass is present. IMPRESSION: 1. 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 2. Chronic area of infarct involving the right cerebellar hemisphere. 3. No abnormal intracranial enhancement. THIS IS AN ELECTRONICALLY VERIFIED REPORT 05/19/2025 1:40 PM: MD Jackie Alejo MD ar TD: 05/19/2025 JOB #: [id number] Radiology Page 1 of 1 COPY Procedure Note Jackie Fontaine, - 05/19/2025 [facility] [address] [place] [address] Radiology PATIENT NAME: Eduarda Jamison MR#: [id number] PROCEDURE DATE: 05/19/2025 ROOM#: ORDERING PHYS: Selena Vegas EXAM: MRI Brain with and without contrast CLINICAL INDICATION: alzheimers. TECHNIQUE: Multiplanar multiecho sequences were performed through the brain utilizingT1 and T2 weighting, as well as either axial susceptibility weighted orgradient echo sequences, and axial diffusion weighted images. A coronalpost-contrast 1mm thick T1-weighted, MP RAGE sequence was performed and multiplanar reformatted images were created. Imaging was performed with and without contrast administration: 7.2 mL of Elucirem. COMPARISON: A 03/06/2025 FINDINGS: Diagnostic Quality: Adequate There is global volume loss characterized by prominence of the ventriclesand sulci. There are prominent perivascular spaces bilaterally within thebasal ganglia and deep white matter regions. There are a mild to moderateamount of T2/FLAIR hyperintense white matter foci within both the supratentorialand infratentorial brain. There is a chronic infarct within the rightcerebellar hemisphere. There are no definite focal parenchymal lesions or masses. Bilateralatrophy of the hippocampi. No abnormal intracranial enhancement is present. There is no abnormal parenchymal susceptibility artifact or restricted diffusion. Vascular Flow Voids: Normal. Paranasal Sinuses and Mastoid Air Cells: Grossly clear. Orbits: No definite masses within the limitations of the study. Extracranial Findings: None. Craniocervical Junction and Skull Base: No tonsillar ectopia or mass is present. IMPRESSION: 1. 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 2. Chronic area of infarct involving the right cerebellar hemisphere. 3. No abnormal intracranial enhancement. THIS IS AN ELECTRONICALLY VERIFIED REPORT 05/19/2025 1:40 PM: MD Jackie Alejo MD ar TD: 05/19/2025 JOB #: [id number] Radiology Page 1 of 1COPY Selena Vegas MD IM MRI ORDERABLES Final Result documented in this encounter Visit Diagnoses Diagnosis Alzheimer's disease ([facility]) Alzheimer's disease documented in this encounter Administered Medications Inactive Administered Medications - up to 3 most recent administrations Medication Order MAR Action Action Date Dose Rate Site gadopiclenol (VUEWAY/ELUCIREM) injection 7.5 mL 7.5 mL, Intravenous, Once in imaging, 1 dose, Starting on Sat05/19/25 at 1319, Until Sat05/19/25 at 1319, Routine, FOR IV USE ONLY Given 05/19/2025 1:19 PM EST 7.2 mL documented in this encounter Additional Health Concerns Assessment Noted Time PHQ-9 Depression Total Score: 0 02/25/20 19 10:04 AM EDT documented as of this encounter Care Teams Supervisor Water Softener Service Relationship Specialty Start Date End Date Koko Mejia MD [address] [place] [address] PCP - General Internal Medicine 04/02/19 Waqas Llamas MD [address] [facility] [address] [place] [address] Obstetrics & Gynecology 02/10/18 Quirino Llamas MD [address] [facility] 1 [place] [address] Obstetrics & Gynecology 02/24/19 Stacie Yancey LPN 08/03/21 Lupe Hays APRN [address] [facility] 1 [place] [address] Nurse Practitioner 08/08/21 documented as of this encounter
[2025-05-27 10:51] VITALS: BMI 27.3
--- OUTSIDE RECORDS SUMMARY | 2025-05-27 11:08 | XMS_ITS | Encounter Summary ---
Author Organization [facility] Address [address] [place] [address] Care Team Providers Care Algebraist Name Role Phone Elio Rush MD Primary Care Provider Unavaila [facility] Waqas Llamas MD Unavailable [phone] Quirino Llamas MD Unavailable Koko Mejia MD Primary Care Provider Stacie Yancey PETROLEUM BLENDING PLANT OPERATOR Unavailable Unavailable Lupe Hays APRN Unavailable [phone] Encounter Details Date Type Department Care Team (Late st Contact Info) Description 01/01/2012 Transcribe Orders Lab [address] [place] [address] Nisha Skinner MD [address] [place] [address] Social History Tobacco Use Types Packs/Day Years [...] documented as of this encounter Care Teams Algebraist Relationship Specialty Start Date End Date Elio Rush MD PCP - General 07/14/08 04/01/19 Koko Mejia MD [address] [facility]. [address] [place] [address] PCP - General Internal Medicine 04/02/19 [place] [address] [place] [address] Obstetrics & Gynecology 02/10/18 Quirino Llamas MD [address] [place] [address] Obstetrics & Gynecology 02/24/19 Stacie Yancey LPN 08/03/21 Lupe Hays APRN [address] [place] [address] Nurse Practitioner 08/08/21 documented as of this encounter
--- OUTSIDE RECORDS SUMMARY | 2025-05-27 11:08 | XMS_ITS | Encounter Summary ---
Author Organization [facility] Address [address] [place] [address] Care Team Providers Care Door Paneler Name Role Phone Waqas Llamas MD Unavailable [phone] Quirino Llamas MD Unavailable Koko Mejia MD Primary Care Provider [phone] Stacie Yancey ANGLEDOZER OPERATOR Unavailable Unavailable Lupe Hays APRN Unavailable [phone] Encounter Details Date Type Department Care Team (Latest Contact Info) Description 05/19/2025 Travel Social History Tobacco Use Types Packs/Day [...] filedocumented in this encounter Additional Health Concerns Assessment Noted Time PHQ-9 Depression Total Score: 0 02/25/20 19 10:04 AM EDT documented as of this encounter Care Teams Door Paneler Relationship Specialty Start Date End Date Koko Mejia MD [address] [place] [address] PCP - General Internal Medicine 04/02/19 Waqas Llamas MD [address] [address] Obstetrics & Gynecology 02/10/18 Quirino Llamas MD [address] [address] Obstetrics & Gynecology 02/24/19 Stacie Yancey LPN 08/03/21 Lupe Hays APRN [address] [address] Nurse Practitioner 08/08/21 documented as of this encounter
--- OUTSIDE RECORDS SUMMARY | 2025-05-27 11:08 | XMS_ITS | Encounter Summary ---
Author Organization [facility] Address [address] [place] [address] Care Team Providers Care Shop Clerk Name Role Phone Elio Rush MD Primary Care Provider Unavaila [facility] Waqas Llamas MD Unavailable Quirino Llamas MD Unavailable Koko Mejia MD Primary Care Provider [phone] Stacie Yancey MARKETING PROGRAM COORDINATOR Unavailable Unavailable Lupe Hays APRN Unavailable [phone] Encounter Details Date Type Department Care Team (Late st Contact Info) Description 05/30/2009 Transcribe Orders Lab [address] [place] [address] Soledad Howard Social History Tobacco Use [...] documented as of this encounter Care Teams Shop Clerk Relationship Specialty Start Date End Date Elio Rush MD PCP - General 07/14/08 04/01/19 Koko Mejia MD [address] [place] [address] [address] [place] [address] PCP - General Internal Medicine 04/02/19 Waqas Llamas MD [address] [facility] [address] [place] [address] Obstetrics & Gynecology 02/10/18 Quirino Llamas MD [address] [facility] [address] [place] [address] Obstetrics & Gynecology 02/24/19 Stacie Yancey LPN 08/03/21 Lupe Hays APRN [address] [facility] [address] [place] [address] Nurse Practitioner 08/08/21 documented as of this encounter
--- OUTSIDE RECORDS SUMMARY | 2025-05-27 11:09 | XMS_ITS | Encounter Summary ---
Author Organization [facility] ([place], [place], [place], [place], [place]) Address [address] [place] [address] Care Team Providers Care Student Career Development Specialist Name Role Phone Koko Mejia MD Primary Care Provider [phone] Selena Vegas MD Unavailable Reason for Visit * Reason Onset Date Comments Appointment 05/10/2025 Patient order wa s faxed on 05-06-25 Patient daughter attempted to schedule and called to let us know earliest appt was 06-04-25 which was after infusion date. [facility] [place] and was able to get appt on 05-19-25 at 12:15 Call made to Daughter to inform her of appt and need to arrive 20-30 minutes early at [facility] for registration Encounter Details Date Type Department Care Team (Late st Contact Info) Description 05/10/2025 Telephone [facility] Neurology - [facility] [address] [place] [address] [address] [place] [address] Jennifer Webb, DENNIS Appointment (Patient order was faxed on 05-06-25 Patient daughter attempted to schedule and called to let us know earliest appt was 06-04-25 which was after infusion date. Call was placed to [facility] in [place] and was able to get appt on 05-19-25 at 12:15 Call made to Daughter to inform her of appt and need to arrive 20-30 minutes early at [facility] for registration) Social History Tobacco Use Types Packs/Day Years Used Date Smoking Tobacco: Former Cigarettes 0.5 18 0 08/08/1971 - 08/20/1989 Smokeless Tobacco: Never Alcohol Use Standard Drinks/Week Comments Never 0 (1 standard drink = 0.6 oz pur e alcohol) Family and Community Support Answer Billy e Recorded Help with Day to Day Activities Not on file 07/18/2023 Feeling Lonely or Isolated Not on file 07/18 Educational Attainment Answer Date Gerard rded Speak language other than Brazilian at home Not on file 07/18/2023 Want [...] on file documented as of this encounter Miscellaneous Notes * Telephone Encounter - Jennifer Webb RN - 05/10/2025 9:59 AM EST Patient order was faxed on 05-06-25 Patient daughter attempted to schedule and called to let us know earliest appt was 06-04-25 which was after infusion date. Call was placed to [facility] in [place] and was able to get appt on 05-19-25 at 12:15 Call made to Daughter to inform her of appt and need to arrive 20-30 minutes early at [facility] hospital for registration OM MILLER documented in this encounter Plan of Treatment Upcoming Encounters Date Type Department Care Team (Late st Contact Info) Description 06/02/2025 11:30 AM EST Office Visit [facility] Neurology - [place] [address] [place] [address] Selena Vegsa MD [address] [place] [address] [address] [place] [id number] 06/02/2025 1:00 PM EST Appointment [facility] Treatment [address] [place] [address] 06/24/2025 1:15 PM EST Office Visit [facility] MECHANICAL ARTIST - [address] [place] [address] Erica Summers MD [address] [place] [address] documented as of this encounter Visit Diagnoses Not on filedocumented in this encounter Care Teams Student Career Development Specialist Relationship Specialty Start Date End Date Koko Mejia MD 700 [facility]. [address] [place] [address] PCP - General Internal Medicine 08/20/22 Selena Vegas MD [address] [facility] [address] [place] [address] Neurology 12/02/24 documented as of this encounter
--- OUTSIDE RECORDS SUMMARY | 2025-05-27 11:09 | XMS_ITS | Clinical Summary ---
Author Organization [facility] Address [address] [place], [place] [address] Care Team Providers Care Planer Operator Name Role Phone Koko Mejia MD Primary Care Provider [phone] Social History Tobacco Use Types Packs/Day Years [...] 2000 [facility]-Zoster Vaccines (1 of 2) 2000 [facility]-Breast Cancer Screening 07/25/202407/08, 07/25/2022, 07/19/2021, Additional history exists [id number] Vaccine ( season) 2025 03/19/2021, 02/11/2021 [facility]-Influenza Vaccine (#1) 2025 [facility]-RSV Vaccine: 60+ [...] on patient's age to complete this topic Insurance MEDICARE [facility] Care Teams Planer Operator Relationship Specialty Start Date End Date Koko Mejia MD 700 [facility] [address] [facility] KARLIE SANCHEZ [address] [facility] - General 02/11/25
--- OUTSIDE RECORDS SUMMARY | 2025-05-27 11:09 | XMS_ITS | Clinical Summary ---
Author Organization [facility] Address [address] [place] 2[address] Care Team Providers Care Circular Gang Saw Operator Name Role Phone Koko Mejia MD Primary Care Provider [phone] Allergies No known active allergies Medications atorvastatin [...] (01/16/2021): Added automatically from request for surgery [id number] Social History Tobacco Use Types Packs/Day Years [...] ZOSTER VACCINE (1 of 2) 2000 ANNUAL PHYSICAL 01/24/2021 HEPATITIS C SCREENING 01/24/2021 TDAP/TD VACCINES (2 - Tdap) 01/03/2024 01/02/2014 INFLUENZA VACCINE 02/05/2025 COVID-19 Vaccine (1 - season) 2025 Medical Devices Implanted Type Area Automotive Mechanical Engineer Device Identifier Shelf Expiration Date Model / Serial / Lot Stnt Cornry Resolute [place] Rx 2x30mm - [id number] Implanted:Qty: 1 on 01/23/2021 by Socrates Lou MD at [facility] [employer] [id number] / / Insurance MEDICARE A & B Care Teams Circular Gang Saw Operator Relationship Specialty Start Date End Date Koko Mejia MD [address] [place] [address] PCP - General Internal Medicine 01/24/21
--- OUTSIDE RECORDS SUMMARY | 2025-05-27 11:09 | XMS_ITS | Encounter Summary ---
Author Organization [employer] ([place], [place], [place], [place], [place]) Address [address] [place] [address] Care Team Providers Care Freight Loader Name Role Phone Koko Mejia MD Primary Care Provider [phone] Selena Vegas MD Unavailable Reason for Visit * Reason Onset Date Comments Memory Loss 04/28/2025 Patient cancelle d Kisunla infusion on 04-20-25 scheduled for 05-03-25 Called to check on patient Encounter Details Date Type Department Care Team (Late st Contact Info) Description 04/28/2025 Telephone [facility] - [address] [place] [address] Jennifer Webb RN Memory Loss (Patient cancelled Kisunla infusion on 04-20-25 scheduled for 05-03-25 Called to check on patient) Social History Tobacco Use Types Packs/Day Years [...] Date Gerard rded Speak language other than Scottish at home Not on file 07/18/2023 Want [...] as of this encounter Plan of Treatment Upcoming Encounters Date Type Department Care Team (Late st Contact Info) Description 06/02/2025 11:30 AM EST Office Visit [facility] Neurology - [facility] [address] [place] [address] Selena Vegas MD [address] [facility] [address] [place], [place] [id number] 06/02/2025 1:00 PM EST Appointment [facility] Outpatient Treatment [address] [place] [address] 06/24/2025 1:15 PM EST Office Visit [facility] RING SORTER - [address] [place] [address] Erica Summers MD [address] [place] [address] documented as of this encounter Visit Diagnoses Not on filedocumented in this encounter Care Teams Freight Loader Relationship Specialty Start Date End Date Koko Mejia MD 700 [facility] [address] [place] [address] PCP - General Internal Medicine 08/20/22 Selena Vegas MD [address] [place] [address] Neurology 12/02/24 documented as of this encounter
--- OUTSIDE RECORDS SUMMARY | 2025-05-27 11:10 | XMS_ITS | Encounter Summary ---
Author Organization [facility] Address [address] [place] [address] Care Team Providers Care Pan Pusher Name Role Phone Elio Rush MD Primary Care Provider Unavaila [facility] Waqas Llamas MD Unavailable Quirino Llamas MD Unavailable Koko Mejia MD Primary Care Provider Stacie Yancey HEADING PINNER Unavailable Unavailable Lupe Hays APRN Unavailable [phone] Encounter Details Date Type Department Care Team (Late st Contact Info) Description 06/10/2000 Historical Encounter Global Quirino Llamas MD [address] [facility] [address] [place] [address] Social History Tobacco Use Types [...] documented as of this encounter Care Teams Pan Pusher Relationship Specialty Start Date End Date Elio Rush MD PCP - General 07/14/08 04/01/19 Koko Mejia MD [address] [place] [address] [facility]. [address] [place] [address] PCP - General Internal Medicine 04/02/19 Waqas Llamas MD [address] [facility] [address] [place] [address] Obstetrics & Gynecology 02/10/18 Quirino Llamas MD [address] [facility] [address] [place] [address] Obstetrics & Gynecology 02/24/19 Stacie Yancey LPN 08/03/21 Lupe Hays APRN [address] [place] [address] Nurse Practitioner 08/08/21 documented as of this encounter
--- OUTSIDE RECORDS SUMMARY | 2025-05-27 11:10 | XMS_ITS | Encounter Summary ---
Author Organization [facility] Address [address] [place] [address] Care Team Providers Care Women'S Swim Coach Name Role Phone Elio Rush MD Primary Care Provider Unavaila [facility] Waqas Llamas MD Unavailable [phone] Quirino Llamas MD Unavailable Koko Mejia MD Primary Care Provider Stacie Yancey MULTIPLE SPINDLE SCREW MACHINE OPERATOR Unavailable Unavailable Lupe Hays APRN Unavailable Encounter Details Date Type Department Care Team (Late st Contact Info) Description 09/22/1998 Historical Encounter Global Quirino Llamas MD [address] [facility] [address] [place] [address] Social History Tobacco Use Types [...] documented as of this encounter Care Teams Women'S Swim Coach Relationship Specialty Start Date End Date Elio Rush MD PCP - General 07/14/08 04/01/19 Koko Mejia MD [address] [place] [address] [facility]. [address] [place] [address] PCP - General Internal Medicine 04/02/19 Waqas Llamas MD [address] [facility] [address] [place] [address] Obstetrics & Gynecology 02/10/18 Quirino Llamas MD [address] [facility] [address] [place] [address] Obstetrics & Gynecology 02/24/19 Stacie Yancey LPN 08/03/21 Lupe Hays APRN [address] [place] [address] Nurse Practitioner 08/08/21 documented as of this encounter
--- OUTSIDE RECORDS SUMMARY | 2025-05-27 11:10 | XMS_ITS | Referral Summary ---
Author Organization [facility] ([place], [place], [place], [place], [place]) Address [address] [place] [address] Care Team Providers Care Air Pollution Engineer Name Role Phone Koko Mejia MD Primary Care Provider [phone] Selena Vegas MD Unavailable Encounters Date Type Department Care Team Description 05/10/2025 Telephone [facility] [address] [place] [address] Jennifer Webb RN Appointment (Patient order was faxed on 05-06-25 Patient daughter attempted to schedule and called to let us know earliest appt was 06-04-25 which was after infusion date. Call was placed to [facility] in [place] and was able to get appt on 05-19-25 at 12:15 Call made to Daughter to inform her of appt and need to arrive 20-30 minutes early at [facility] for registration) 05/03/2025 8:27 AM EDT - 05/03/2025 10:59 PM EDT Hospital Encounter [facility] Outpatient Treatment [address] [place] [place] [address] Alzheimer dementia (HCC) (Primary Dx) Discharge Disposition: Home or Self Care 04/28/2025 Telephone [facility] [address] [place] [address] Jennifer Webb RN Memory Loss (Patient cancelled [facility] infusion on 04-20-25 scheduled for 05-03-25 Called to check on patient) 03/03/2025 Telephone [facility] - Joe Christensen [address] [place] [address] Shona Nettles CMA mri new order from Last 3 Months Allergies Active Allergy Reactions Criticality Noted Date Comments Hydrocodone-Acetami nophen Other (See Comments) 02/19/2024 1Tolerates Percocet Hydrocodone causes oversedation Medications * This document contains information received from the source organization and may not represent a complete record from that organization. calcium-vitamin D 250 mg-2.5 mcg (100 unit) per tablet Take by mouth. Acti ve sertraline (ZOLOFT) 50 MG tablet Take 1 tablet (50 mg total) by mouth. Active aspirin 81 MG EC tablet Take 1 tablet (81 mg total) by mouth in the morning. Active levothyroxine (SYNTHROID, LEVOTHROID) 125 MCG tablet Take 1 tablet (125 mcg total) by mouth. Active pyridoxine, vitamin B6, (B-6) 100 MG tablet Take 1 tablet (100 mg total) by mouth. Active acetaminophen (TYLENOL) 325 MG tablet Take 2 tablets (650 mg total) by mouth once at bedtime. Active anastrozole (ARIMIDEX) 1 mg tablet Take 1 tablet (1 mg total) by mouth daily. 90 tablet 3 3 Active atorvastatin (LIPITOR) 20 MG tablet Take 1 tablet (20 mg total) by mouth nightly. 4 Active multivitamin per tablet Take 1 tablet by mouth daily. Active fluocinolone acetonide oiL 0.01 % Drop 4 Active cyanocobalamin (VITAMIN B-12) 1000 MCG tablet Take 1 tablet (1,000 mcg total) by mouth. Active memantine (NAMENDA) 10 MG tabletIndicatio ns:Subjective memory complaints Take 1 tablet (10 mg total) by mouth 2 (two) times daily. 180 tablet 3 5 Active estradioL (ESTRACE) 0.01 % (0.1 mg/gram) vaginal creamIndication s:Vaginal atrophy To start new medication: 2G vaginally every night for 2 weeks. Instructions going forward- 1G twice a week. 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 Vaginal bleeding 03/25/2024 Vaginal atrophy 07/11/2023 Complication of other implan nacho genitourinary mesh, unspecified complication, initial encounter 07/11/2023 CAD (s/p stent 05/28) 09/18/2022 Malignant neoplasm of upper- outer quadrant of left breast in female, estrogen receptor positive 08/29/2022 Cancer Staging:Pathologic: pT2, pN3a, G2, ER+, WI+, HER2- - Signed by Elio Santa MD on 10/09/2022 Thyroid disease ELAINE (does not use CPAP) Delayed emergence from anesthesia HTN (hypertension) Aortic stenosis Social History Tobacco Use Types Packs/Day Years [...] Date Gerard rded Speak language other than Tajik at home Not on file 07/18/2023 Want [...] Pulse 59 05/03/2025 11:40 AM EDT Temperature 36.1 C (97 F) 04/20/2024 9:45 AM EDT Respiratory Rate 18 05/03/2025 9:41 AM EDT Oxygen Saturation 98% 05/03/2025 9:41 AM EDT Inhaled Oxygen Concentration - - Weight 69.4 kg (153 lb) 05/03/2025 9:41 AM EDT Height 157.5 cm (5' 2 ) 05/03/2025 9:41 AM EDT Body Mass Index 27.98 05/03/2025 9:41 AM EDT Plan of Treatment Upcoming Encounters Date Type Department Care Team (Late st Contact Info) Description 06/02/2025 11:30 AM EST Office Visit [facility] - [facility] [place] [facility] [address] [place] [address] Selena Vegas MD [address] [facility] [address] [place] [address] 06/02/2025 1:00 PM EST Appointment [facility] Outpatient Treatment [address] [place] [address] 06/24/2025 1:15 PM EST Office Visit [facility] ASSISTANT PRODUCER - [address] [place] [phone] Erica Summers MD [address] [place], [place] [id number] Medical Devices Explanted Type Area Complaint Coordinator Device Identifier Shelf Expiration Date Model / Serial / Lot Port Power M.R.I. 8 Fr [id number] - [id number] Implanted:Qty : 1 on 10/16/2022 by Elmer Solomon MD at [facility] IMPLANTS Right: Chest CR BARD:ACCESS SYS 03/07/2024 [id number] / / [id number] Procedures Procedure Name Priority Date/Time Associated Diagnosis Comments MR BRAIN WITH & WITHOUT IV CONTRAST Routine 05/19/2025 3:29 PM EST MM DIGITAL MAMMO DIAGNOSTIC LEFT Routine 08/27/2022 10:54 AM EST Malignant neoplasm of upper-outer quadrant of left female breast, unspecified estrogen receptor status (HCC) from Last 3 Months or Most Recently Relevant to Health Maintenance Results * MR Brain Without & With IV Contrast (05/19/2025 3:29 PM EST) Anatomical Region Laterality Modality Head, Brain Magnetic Resonan ce Selena Vegas MD IMG MRI ORDERABLES Final Result * (ABNORMAL) MM digital mammo diagnostic left (08/27/2022 10:54 AM EST) Anatomical Region Laterality Modality Breast Left Mammography 08/27/2022 12:2 4 PM EST Impressions 08/27/2022 12:30 PM EST FINAL IMPRESSION: ACR BI-RADS 6: Known biopsy proven cancer. RECOMMENDATIONS: Follow-up with Dr. Elmer Solomon The results and recommendations were discussed with the patient on the day of the appointment. In addition, a written report in lay terms was given to the patient. Density notification was included for patients with pattern 3 or 4 breast tissue. At our facility, a [place]uy[place] marker is positioned over a visible skin lesion and a linear marker is used to indicate a scar. A triangular marker is placed on a palpable finding. Narrative 08/27/2022 12:30 PM EST PROCEDURES: Diagnostic mammogram of the left breast with digital tomosynthesis (DBT) REASON FOR EXAM: Recently diagnosed invasive carcinoma of the left breast associated with axillary metastases. Mammogram is performed today in preparation for surgery, if wire localization of the breast lesion or clipped lymph node are desired. COMPARISON STUDIES: Several mammograms performed at [facility] in [place] in July and August 2022 as well as recent 08/23/[address] [facility] FINDINGS: Today's mammogram consisted of full size true lateral, craniocaudad, oblique, and axillary tail views of the left breast obtained in DBT mode. C views were reconstructed. A spiculated mass containing biopsy marker is present in the anterior aspect of the left upper outer quadrant. It represents the biopsy-proven invasive cancer. Images demonstrating left axilla show a clearly abnormal 15 mm lymph node with almost completely effaced hilum. This does not correspond to the clipped node which is not seen on our mammogram but can be easily appreciated on PET/CT. The clipped lymph node is positioned much more superiorly. Mammographic exam was reviewed with the benefit of computed aided detection. Elio Santa MD IM MAMMOGRAPHY ORDERABLES Final Result from Last 3 Months or Most Recently Relevant to Health Maintenance Insurance MEDICARE PART A B Advance Directives For more information, please contact: [phone] * Full Code (Latest Code Status on File) Date Activated Date Inactivated Comments 04/20/2024 5:05 AM 04/20/2024 11:36 AM Care Teams Air Pollution Engineer Relationship Specialty Start Date End Date Koko Mejia MD [address] [facility] [address] [place] [address] PCP - General Internal Medicine 08/20/22 Selena Vegas MD [address] [place] [address] Neurology 12/02/24
--- OUTSIDE RECORDS SUMMARY | 2025-05-27 11:10 | XMS_ITS | Encounter Summary ---
Author Organization [facility] Address [address] [place] [address] Care Team Providers Care Copyright Clerk Name Role Phone Elio Rush MD Primary Care Provider Unavaila Waqas Vega MD Unavailable [phone] Quirino Llamas MD Unavailable Koko Mejia MD Primary Care Provider [phone] Stacie Yancey GEOPHYSICS PROFESSOR Unavailable Unavailable Lupe Hays APRN Unavailable Encounter Details Date Type Department Care Team (Late st Contact Info) Description 09/04/2001 Historical Encounter Global Waqas Simpson MD [address] [place] [address] Social History Tobacco Use Types [...] documented as of this encounter Care Teams Copyright Clerk Relationship Specialty Start Date End Date Elio Rush MD PCP - General 07/14/08 04/01/19 K[facility] MD [email or web address] [address] [place] [address] PCP - General Internal Medicine 04/02/19 Waqas Llamas MD [address] [facility] [address] [place] [address] Obstetrics & Gynecology 02/10/18 Quirino Llamas MD [address] [facility] [address] [place] [address] Obstetrics & Gynecology 02/24/19 Stacie Yancey LPN 08/03/21 Lupe Hays APRN [address] [facility] [address] [place] [address] Nurse Practitioner 08/08/21 documented as of this encounter
--- OUTSIDE RECORDS SUMMARY | 2025-05-27 11:10 | XMS_ITS | Encounter Summary ---
Author Organization [facility] Address [address] [place] [address] Care Team Providers Care State Epidemiologist Name Role Phone Elio Rush MD Primary Care Provider Unavaila [facility] Waqas Llamas MD Unavailable Quirino Llamas MD Unavailable Koko Mejia MD Primary Care Provider [phone] Stacie Yancey LPN Unavailable Unavailable Lupe Hays APRN Unavailable Encounter Details Date Type Department Care Team (Late st Contact Info) Description 11/14/2001 Historical Encounter Global Brody Martinez MD [address] [place] [address] Social History Tobacco Use Types [...] documented as of this encounter Care Teams State Epidemiologist Relationship Specialty Start Date End Date Elio Rush MD PCP - General 07/14/08 04/01/19 Koko Mejia MD [address] [place] [address] [facility]. [address] [place] [address] PCP - General Internal Medicine 04/02/19 Waqas Llamas MD [address] [facility] [address] [place] [address] Obstetrics & Gynecology 02/10/18 Quirino Llamas MD [address] [facility] [address] [place] [address] Obstetrics & Gynecology 02/24/19 Stacie Yancey LPN 08/03/21 Lupe Hays APRN [facility] [address] Nurse Practitioner 08/08/21 documented as of this encounter
--- OUTSIDE RECORDS SUMMARY | 2025-05-27 11:10 | XMS_ITS | Encounter Summary ---
Author Organization [facility] Address [address] [place] [address] Care Team Providers Care Horse Identifier Name Role Phone Elio Rush MD Primary Care Provider Unavaila [facility] Waqas Llamas MD Unavailable Quirino Llamas MD Unavailable Koko Mejia MD Primary Care Provider Stacie Yancey ADJUNCT PSYCHOLOGY PROFESSOR Unavailable Unavailable Lupe Hays MANAGER DEPARTMENT Unavailable [phone] Encounter Details Date Type Department Care Team (Late st Contact Info) Description 07/06/2002 Historical Encounter Global Elmer Leyva, TEJAS [address] [place] [address] Social History Tobacco Use Types Packs/Day [...] documented as of this encounter Care Teams Horse Identifier Relationship Specialty Start Date End Date Elio Rush MD PCP - General 07/14/08 04/01/19 Koko Mejia MD 700 [facility]. [address] [place] [address] PCP - General Internal Medicine 04/02/19 Waqas Llamas MD [address] [facility] [address] [place] [address] Obstetrics & Gynecology 02/10/18 Quirino Llamas MD [address] [facility] [address] [place] [address] Obstetrics & Gynecology 02/24/19 Stacie Yancey LPN 08/03/21 Lupe Hays APRN [address] [facility] [address] [place] [address] Nurse Practitioner 08/08/21 documented as of this encounter
--- OUTSIDE RECORDS SUMMARY | 2025-05-27 11:10 | XMS_ITS | Encounter Summary ---
Author Organization [facility] Address [address] [place] [address] Care Team Providers Care Chief Electrician Name Role Phone Elio Rush MD Primary Care Provider Unavaila [facility] Waqas Llamas MD Unavailable [phone] Quirino Llamas MD Unavailable Koko Mejia MD Primary Care Provider Stacie Yancey HAND RUG CLEANER Unavailable Unavailable Lupe Hays APRN Unavailable [phone] Encounter Details Date Type Department Care Team (Late st Contact Info) Description 08/04/1998 Historical Encounter Global Quirino Llamas MD [address] [facility] [address] [place] [address] Social History Tobacco Use Types [...] documented as of this encounter Care Teams Chief Electrician Relationship Specialty Start Date End Date Elio Rush MD PCP - General 07/14/08 04/01/19 Koko Mejia MD [address] [place] [address] [facility]. [address] [place] [address] PCP - General Internal Medicine 04/02/19 Waqas Llamas MD [address] [facility] [address] [place] [address] Obstetrics & Gynecology 02/10/18 Quirino Llamas MD [address] [facility] [address] [place] [address] Obstetrics & Gynecology 02/24/19 Stacie Yancey LPN 08/03/21 Lupe Hays APRN [address] [place] [address] Nurse Practitioner 08/08/21 documented as of this encounter
--- OUTSIDE RECORDS SUMMARY | 2025-05-27 11:11 | XMS_ITS | Encounter Summary ---
Author Organization [facility] Address [address] [place] [address] Care Team Providers Care Commercial Lines Insurance Agent Name Role Phone Elio Rush MD Primary Care Provider Unavaila Waqas Vega MD Unavailable [phone] Quirino Llamas MD Unavailable Koko Mejia MD Primary Care Provider Stacie Yancey HOSPITAL ATTENDANT Unavailable Unavailable Lupe Hays APRN Unavailable Encounter Details Date Type Department Care Team (Late st Contact Info) Description 04/16/1996 Historical Encounter Global Waqas Simpson MD [address] [place] [address] Social History Tobacco Use Types [...] as of this encounter Care Teams Commercial Lines Insurance Agent Relationship Specialty Start Date End Date Elio Rush MD PCP - General 07/14/08 04/01/19 Koko Mejia MD 700 [facility]. [address] [place] [address] PCP - General Internal Medicine 04/02/19 Waqas Llamas MD [address] [facility] [address] [place] [address] Obstetrics & Gynecology 02/10/18 Quirino Llamas MD [address] [facility] [address] [place] [address] Obstetrics & Gynecology 02/24/19 Stacie Yancey LPN 08/03/21 Lupe Hays APRN [address] [facility] [address] [place] [address] Nurse Practitioner 08/08/21 documented as of this encounter
--- OUTSIDE RECORDS SUMMARY | 2025-05-27 11:11 | XMS_ITS | Encounter Summary ---
Author Organization [facility] Address [address] [place] [address] Care Team Providers Care Vocational Training Teacher Name Role Phone Elio Rush MD Primary Care Provider Unavaila [facility] Waqas Llamas MD Unavailable Quirino Llamas MD Unavailable Koko Mejia MD Primary Care Provider [phone] Stacie Yancey WRAPPER HANDS SPRAYER Unavailable Unavailable Lupe Hays APRN Unavailable Encounter Details Date Type Department Care Team (Late st Contact Info) Description 04/05/1999 Historical Encounter Global Quirino Llamas MD [address] [facility] [address] [place] [address] Social History Tobacco Use Types [...] documented as of this encounter Care Teams Vocational Training Teacher Relationship Specialty Start Date End Date Elio Rush MD PCP - General 07/14/08 04/01/19 Koko Mejia MD [address] [place] [address] [facility] [[email or web address] [address] [place] [address] PCP - General Internal Medicine 04/02/19 Waqas Llamas MD [address] [facility] [address] [place] [address] Obstetrics & Gynecology 02/10/18 Quirino Llamas MD [address] [facility] [address] [place] [address] Obstetrics & Gynecology 02/24/19 Stacie Yancey LPN 08/03/21 Lupe Hays APRN [address] [place] [address] Nurse Practitioner 08/08/21 documented as of this encounter
--- OUTSIDE RECORDS SUMMARY | 2025-05-27 11:11 | XMS_ITS | Encounter Summary ---
Author Organization [facility] Address [address] [place] [address] Care Team Providers Care Auto Collision Repair Instructor Name Role Phone Elio Rush MD Primary Care Provider Unavaila [facility] Waqas Llamas MD Unavailable [phone] Quirino Llamas MD Unavailable Koko Mejia MD Primary Care Provider [phone] Stacie Yancey LPN Unavailable Unavailable Lupe Hays APRN Unavailable [phone] Encounter Details Date Type Department Care Team [...] documented as of this encounter Care Teams Auto Collision Repair Instructor Relationship Specialty Start Date End Date Elio Rush MD PCP - General 07/14/08 04/01/19 Koko Mejia MD 700 [facility] [address] [place] [address] PCP - General Internal Medicine 04/02/19 Waqas Llamas MD [address] [facility] [address] [place] [address] Obstetrics & Gynecology 02/10/18 Quirino Llamas MD [address] [facility] [address] [place] [address] Obstetrics & Gynecology 02/24/19 Stacie Yancey LPN 08/03/21 Lupe Hays APRN [address] [facility] [address] [place] [address] Nurse Practitioner 08/08/21 documented as of this encounter
--- OUTSIDE RECORDS SUMMARY | 2025-05-27 11:11 | XMS_ITS | Encounter Summary ---
Author Organization [facility] Address [address] [place] [address] Care Team Providers Care Pre Wave Assembler Name Role Phone Elio Rush MD Primary Care Provider Unavaila [facility] Waqas Llamas MD Unavailable Quirino Llamas MD Unavailable Koko Mejia MD Primary Care Provider Stacie Yancey UI UX DEVELOPER Unavailable Unavailable Lupe Hays APRN Unavailable [phone] Encounter Details Date Type Department Care Team (Late st Contact Info) Description 05/25/1996 Historical Encounter Global Quirino Llamas MD [address] [facility] [address] [place] [address] Social History Tobacco Use Types [...] documented as of this encounter Care Teams Pre Wave Assembler Relationship Specialty Start Date End Date Elio Rush MD PCP - General 07/14/08 04/01/19 Koko Mejia MD [address] [place] [address] [facility]. [address] [place] [address] PCP - General Internal Medicine 04/02/19 Waqas Llamas MD [address] [facility] [address] [place] [address] Obstetrics & Gynecology 02/10/18 Quirino Llamas MD [address] [facility] [address] [place] [address] Obstetrics & Gynecology 02/24/19 Stacie Yancey LPN 08/03/21 Lupe Hays APRN [address] [place] [address] Nurse Practitioner 08/08/21 documented as of this encounter
--- OUTSIDE RECORDS SUMMARY | 2025-05-27 11:11 | XMS_ITS | Encounter Summary ---
Author Organization [facility] Address [address] [place] [address] Care Team Providers Care Soda Flaker Name Role Phone Elio Rush MD Primary Care Provider Unavaila [facility] Waqas Llamas MD Unavailable Quirino Llamas MD Unavailable Koko Mejia MD Primary Care Provider Stacie Yancey CORN DETASSELER Unavailable Unavailable Lupe Hays APRN Unavailable Encounter Details Date Type Department Care Team (Late st Contact Info) Description 02/19/2000 Historical Encounter Global Quirino Llamas MD [address] [facility] [place] [facility] [address] [place] [address] Social History Tobacco Use Types [...] documented as of this encounter Care Teams Soda Flaker Relationship Specialty Start Date End Date Elio Rush MD PCP - General 07/14/08 04/01/19 Koko Mejia MD [address] [place] [address] [facility]. [address] [place] [address] PCP - General Internal Medicine 04/02/19 Waqas Llamas MD [address] [facility] [address] [place] [address] Obstetrics & Gynecology 02/10/18 Quirino Llamas MD [address] [facility] [address] [place] [address] Obstetrics & Gynecology 02/24/19 Stacie Yancey LPN 08/03/21 Lupe Hays APRN [address] [place] [address] Nurse Practitioner 08/08/21 documented as of this encounter
--- OUTSIDE RECORDS SUMMARY | 2025-05-27 11:11 | XMS_ITS | Clinical Summary ---
Author Organization [facility] Address [address] [place] [address] Care Team Providers Care Pump House Technician Name Role Phone Waqas Llamas MD Unavailable [...] Encounters Date Type Department Care Team Description 05/19/2025 12:07 PM EST - 05/19/2025 11:59 PM EST Hospital Encounter [facility] [address] [facility] [place] [address] Selena Vegas MD Alzheimer's disease ([facility]) Discharge Disposition: Home or Self Care 05/19/2025 Travel 03/24/2025 Documentation [facility] [address] [place] [address], [address] [place] [address] Selena Vegas MD 03/11/2025 Transcribe Orders Centralized Scheduling [address] [facility] [place] [address] Selena Vegas MD Alzheimer's disease ([facility]) (Primary Dx) 03/06/2025 9:24 AM EDT - 03/06/2025 11:59 PM EDT Hospital Encounter [facility] [address] [facility] [place] [address] Selena Vegas MD Dementia of the Alzheimer's type with early onset without behavioral disturbance ([facility]/HCC); Alzheimer's disease ([facility]/HCC) Discharge Disposition: Home or Self Care 03/06/2025 Travel from Last 3 Months Family History Medical [...] - Td or Tdap) 03/29/2032 03/29/2022, 01/02/2014 CT Colonography Completed HEP A VACCINE Aged Out No longer [...] Routine 05/19/2025 1:19 PM EST Alzheimer's disease (CMS/HCC) MRI HEAD W WO CONTRAST Routine 03/06/2025 10:20 AM EDT Dementia of the Alzheimer's type with early onset without behavioral disturbance (CMS/HCC) Alzheimer's disease (CMS/HCC) DEXA BONE DENSITY SPINE AND HIP Routine 10/28/2024 10:35 AM EDT Osteoporosis MAMMO SCREENING (3D) BILATERAL Routine 07/25/2022 10:17 AM EST Encounter for screening mammogram for malignant neoplasm of breast from Last 3 Months or Most Recently Relevant to Health Maintenance Results * MRI Head W WO Contrast (05/19/2025 1:19 PM EST) Only the most recent of2 resultswithin the time period is included. Anatomical Region Laterality Modality Head Magnetic Resonan ce 05/19/2025 Narrative 05/19/2025 1:40 [place] [address] Radiology PATIENT NAME: Eduarda Jamison MR#: [id number] PROCEDURE DATE: 05/19/2025 ROOM#: ORDERING PHYS: Selena [...] Alejo MD ar TD: 05/19/2025 JOB #: [id number] Radiology Page 1 of 1 COPY Procedure Note Jackie Fontaine DO - 05/19/2025 [place] [address] Radiology PATIENT NAME: Eduarda Jamison MR#: [id number] PROCEDURE DATE: 05/19/2025 ROOM#: ORDERING PHYS: eSlena Vegas EXAM: MRI Brain with and without [...] Alejo MD ar TD: 05/19/2025 JOB #: [id number] Radiology Page 1 of 1COPY Selena Vegas MD IMG MRI ORDERABLES Final Result * Dexa Bone Density Spine And Hip (10/28/2024 10:35 AM EDT) Anatomical Region Laterality Modality hip, C-spine, T-spine, L-spine M ammography 10/28/2024 Narrative 10/28/2024 10:[place] [address] Radiology PATIENT NAME: Eduarda Jamison MR#: [id number] PROCEDURE DATE: 10/28/2024 ROOM#: ORDERING PHYS: Koko Mejia Dexa Scan History: Osteoporosis screening, no additional clinical history provided Comparison:None Findings: The t-score of the lumbar spine from L1-L4 measured -3.2. The t-score of the left femoral neck measured -2.8. Impression: Osteoporosis. Treatment and follow-up is advised. THIS IS AN ELECTRONICALLY VERIFIED REPORT 10/28/2024 10:46 AM: MD Luke Koehler MD barrie TD: 10/28/2024 JOB #: [id number] Radiology Page 1 of 1 COPY Procedure Note Luke Layne MD - 10/28/2024 [place] [address] Radiology PATIENT NAME: Eduarda Jamison MR#: [id number] PROCEDURE DATE: 10/28/2024 ROOM#: ORDERING PHYS: Koko Mejia Dexa Scan History: Osteoporosis screening, no additional clinical history provided Comparison:None Findings: The t-score of the lumbar spine from L1-L4 measured -3.2.The t-score of the left femoral neck measured -2.8. Impression: Osteoporosis. Treatment and follow-up is advised. THIS IS AN ELECTRONICALLY VERIFIED REPORT 10/28/2024 10:46 AM: MD Luke Koehler MD barrie TD: 10/28/2024 JOB #: [id number] Radiology Page 1 of 1COPY us Koko Mejia MD IMG DEXA ORDERABLES Final [...] Recently Relevant to Health Maintenance Insurance MEDICARE [facility] Care Teams Pump House Technician Relationship Specialty Start Date End Date Koko Mejia MD [address] [facility] [address] [place] [address] PCP - General Internal Medicine 04/02/19 Waqas Llamas MD [address] [place] [address] Obstetrics & Gynecology 02/10/18 Quirino Llamas MD [address] [place] [address] Obstetrics & Gynecology 02/24/19 Stacie Yancey, MARLA 08/03/21 Lupe Hays, TEJAS [address] [place] [address] Nurse Practitioner 08/08/21
--- OUTSIDE RECORDS SUMMARY | 2025-05-27 11:11 | XMS_ITS | Encounter Summary ---
Author Organization [facility] Address [address] [place] [address] Care Team Providers Care Sand Digger Name Role Phone Elio Rush MD Primary Care Provider Unavaila [facility] Waqas Llamas MD Unavailable Quirino Llamas MD Unavailable Koko Mejia MD Primary Care Provider [phone] Stacie Yancey COUNTER INTELLIGENCE AGENT Unavailable Unavailable Lupe Hays APRN Unavailable [phone] Encounter Details Date Type Department Care Team (Late st Contact Info) Description 08/15/1999 Historical Encounter Global Quirino Llamas MD [address] [facility] [address] [place] [address] Social History Tobacco Use Types [...] documented as of this encounter Care Teams Sand Digger Relationship Specialty Start Date End Date Elio Rush MD PCP - General 07/14/08 04/01/19 Koko Mejia MD [address] [place] [address] [facility]. [address] [place] [address] PCP - General Internal Medicine 04/02/19 Waqas Llamas MD [address] [facility] [address] [place] [address] Obstetrics & Gynecology 02/10/18 Quirino Llamas MD [address] [facility] [address] [place] [address] Obstetrics & Gynecology 02/24/19 Stacie Yancey LPN 08/03/21 Lupe Hays APRN [address] [place] [address] Nurse Practitioner 08/08/21 documented as of this encounter
--- OUTSIDE RECORDS SUMMARY | 2025-05-27 11:11 | XMS_ITS | Encounter Summary ---
Author Organization [facility] Address [address] [place] [address] Care Team Providers Care Safety Sealer Name Role Phone Elio Rush MD Primary Care Provider Unavaila Waqas Vega MD Unavailable Quirino Llamas MD Unavailable Koko Mejia MD Primary Care Provider Stacie Yancey FIRST AID INSTRUCTOR Unavailable Unavailable Lupe Hays APRN Unavailable Encounter Details Date Type Department Care Team (Late st Contact Info) Description 02/23/2007 Historical Encounter Global Edward Payne [facility] [address] [facility] [address] [address] Social History Tobacco Use Types Packs/Day [...] documented as of this encounter Care Teams Safety Sealer Relationship Specialty Start Date End Date Elio Rush MD PCP - General 07/14/08 04/01/19 Koko Mejia MD [address] [place] [address] [facility]. [address] [place] [address] PCP - General Internal Medicine 04/02/19 Waqas Llamas MD [address] [facility] [address] [place] [address] Obstetrics & Gynecology 02/10/18 Quirino Llamas MD [address] [facility] [address] [place] [address] Obstetrics & Gynecology 02/24/19 Stacie Yancey LPN 08/03/21 Lupe Hays APRN [address] [facility] [address] [place] [address] Nurse Practitioner 08/08/21 documented as of this encounter
--- OUTSIDE RECORDS SUMMARY | 2025-05-27 11:11 | XMS_ITS | Encounter Summary ---
Author Organization [facility] Address [address] [place] [address] Care Team Providers Care Tallow Maker Name Role Phone Elio Rush MD Primary Care Provider Unavaila [facility] Waqas Llamas MD Unavailable [phone] Quirino Llamas MD Unavailable Koko Mejia MD Primary Care Provider [phone] Stacie Yancey REIKI PRACTITIONER Unavailable Unavailable Lupe Hays APRN Unavailable Encounter Details Date Type Department Care Team (Late st Contact Info) Description 05/22/2000 Historical Encounter Global Quirino Llamas MD [address] [facility] [address] [place] [address] Social History Tobacco Use Types [...] documented as of this encounter Care Teams Tallow Maker Relationship Specialty Start Date End Date Elio Rush MD PCP - General 07/14/08 04/01/19 Koko Mejia MD [address] [place] [address] [facility]. [address] [place] [address] PCP - General Internal Medicine 04/02/19 Waqas Llamas MD [address] [facility] [address] [place] [address] Obstetrics & Gynecology 02/10/18 Quirino Llamas MD [address] [facility] [address] [place] [address] Obstetrics & Gynecology 02/24/19 Stacie Yancey LPN 08/03/21 Lupe Hays APRN [address] [place] [address] Nurse Practitioner 08/08/21 documented as of this encounter
--- OUTSIDE RECORDS SUMMARY | 2025-05-27 11:11 | XMS_ITS | Encounter Summary ---
Author Organization [facility] Address [address] [place] [address] Care Team Providers Care Digital Strategy Director Name Role Phone Elio Rush MD Primary Care Provider Unavaila Waqas Vega MD Unavailable [phone] Quirino Llamas MD Unavailable Koko Mejia MD Primary Care Provider Stacie Yancey DISPERSION MIXER Unavailable Unavailable Lupe Hays APRN Unavailable Encounter Details Date Type Department Care Team (Late st Contact Info) Description 04/16/1996 Historical Encounter Global Waqas Simpson MD [address] [place] [address] Social History Tobacco Use Types [...] documented as of this encounter Care Teams Digital Strategy Director Relationship Specialty Start Date End Date Elio Rush MD PCP - General 07/14/08 04/01/19 Koko Mejia MD [address] [facility] [address] [place] [address] PCP - General Internal Medicine 04/02/19 Waqas Llamas MD [address] [facility] [address] [place] [address] Obstetrics & Gynecology 02/10/18 Quirino Llamas MD [address] [facility] [address] [place] [address] Obstetrics & Gynecology 02/24/19 Stacie Yancey LPN 08/03/21 Lupe Hays APRN [address] [facility] [address] [place] [address] Nurse Practitioner 08/08/21 documented as of this encounter
--- OUTSIDE RECORDS SUMMARY | 2025-05-27 11:11 | XMS_ITS | Encounter Summary ---
Author Organization [facility] Address [address] [place] [address] Care Team Providers Care Career Consultant Name Role Phone Elio Rush MD Primary Care Provider Unavaila [facility] Waqas Llamas MD Unavailable [phone] Quirino Llamas MD Unavailable Koko Mejia MD Primary Care Provider [phone] Stacie Yancey LPN Unavailable Unavailable Lupe Hays APRN Unavailable [phone] Encounter Details Date Type Department Care Team [...] documented as of this encounter Care Teams Career Consultant Relationship Specialty Start Date End Date Elio Rush MD PCP - General 07/14/08 04/01/19 Koko Mejia MD [address] [facility] [place] [place] [address] PCP - General Internal Medicine 04/02/19 Waqas Llamas MD [address] [place] [address] Obstetrics & Gynecology 02/10/18 Quirino Llamas MD [address] [facility] [address] [place] [address] Obstetrics & Gynecology 02/24/19 Stacie Yancey LPN 08/03/21 Lupe Hays APRN [address] [facility] [address] [place] [address] Nurse Practitioner 08/08/21 documented as of this encounter
--- OUTSIDE RECORDS SUMMARY | 2025-05-27 11:11 | XMS_ITS | Encounter Summary ---
Author Organization [facility] Address [address] [place] [address] Care Team Providers Care Provider Scribe Name Role Phone Elio Rush MD Primary Care Provider Unavaila [facility] Waqas Llamas MD Unavailable [phone] Quirino Llamas MD Unavailable Koko Mejia MD Primary Care Provider Stacie Yancey MICROBIOLOGICAL ANALYST Unavailable Unavailable Lupe Hays APRN Unavailable Encounter Details Date Type Department Care Team (Late st Contact Info) Description 07/21/1998 Historical Encounter Global Quirino Llamas MD [address] [facility] [address] [place] [address] Social History Tobacco Use Types [...] documented as of this encounter Care Teams Provider Scribe Relationship Specialty Start Date End Date Elio Rush MD PCP - General 07/14/08 04/01/19 Koko Mejia MD [address] [place] [address] [facility]. [address] [place] [address] PCP - General Internal Medicine 04/02/19 Waqas Llamas MD [address] [facility] [address] [place] [address] Obstetrics & Gynecology 02/10/18 Quirino Llamas MD [address] [facility] [address] [place] [address] Obstetrics & Gynecology 02/24/19 Stacie Yancey LPN 08/03/21 Lupe Hays APRN [address] [place] [address] Nurse Practitioner 08/08/21 documented as of this encounter
--- OUTSIDE RECORDS SUMMARY | 2025-05-27 11:12 | XMS_ITS | Encounter Summary ---
Author Organization [facility] Address [address] [place] [address] Care Team Providers Care Business Development Recruiter Name Role Phone Elio Rush MD Primary Care Provider Unavaila [facility] Waqas Llamas MD Unavailable [phone] Quirino Llamas MD Unavailable Koko Mejia MD Primary Care Provider Stacie Yancey DOT COMPLIANCE MANAGER Unavailable Unavailable Lupe Hays APRN Unavailable Encounter Details Date Type Department Care Team (Late st Contact Info) Description 06/23/2008 Transcribe Orders Centralized Scheduling [address] [facility] [place] [address] Quirino Llamas MD [address] [facility] [address] [place] [id number] Other Screening Mammogram (Primary Dx) Social History [...] documented as of this encounter Care Teams Business Development Recruiter Relationship Specialty Start Date End Date Elio Rush MD PCP - General 07/14/08 04/01/19 Koko Mejia MD [address] [place] [address] [place] [place] [address] PCP - General Internal Medicine 04/02/19 Waqas Llamas MD [address] [facility] [address] [place] [address] Obstetrics & Gynecology 02/10/18 Quirino Llamas MD [address] [facility] [address] [place], [place] [address] Obstetrics & Gynecology 02/24/19 Stacie Yancey LPN 08/03/21 Lupe Hays APRN [address] [facility] [address] [place] [address] Nurse Practitioner 08/08/21 documented as of this encounter
--- OUTSIDE RECORDS SUMMARY | 2025-05-27 11:12 | XMS_ITS | Encounter Summary ---
Author Organization [facility] Address [address] [place] [address] Care Team Providers Care Ambulance Attendant Name Role Phone Elio Rush MD Primary Care Provider Unavaila Waqas Vega MD Unavailable Quirino Llamas MD Unavailable Koko Mejia MD Primary Care Provider Stacie Yancey GLASS FRAME FITTER Unavailable Unavailable Lupe Hays APRN Unavailable Encounter Details Date Type Department Care Team (Late st Contact Info) Description 03/13/2007 Historical Encounter Global Edward Payne MD [address] [facility] [address] [address] Social History Tobacco Use Types [...] documented as of this encounter Care Teams Ambulance Attendant Relationship Specialty Start Date End Date Elio Rush MD PCP - General 07/14/08 04/01/19 Koko Mejia MD [address] [place] [address] [facility]. [address] [place] [address] PCP - General Internal Medicine 04/02/19 Waqas Llamas MD [address] [facility] [address] [place] [address] Obstetrics & Gynecology 02/10/18 Quirino Llamas MD [address] [facility] [address] [place] [address] Obstetrics & Gynecology 02/24/19 Stacie Yancey LPN 08/03/21 Lupe Hays APRN [address] [facility] [address] [place] [address] Nurse Practitioner 08/08/21 documented as of this encounter
--- OUTSIDE RECORDS SUMMARY | 2025-05-27 11:12 | XMS_ITS | Encounter Summary ---
Author Organization [facility] Address [address] [place] [address] Care Team Providers Care Integrity Manager Name Role Phone Elio Rush MD Primary Care Provider Unavaila Waqas Vega MD Unavailable Quirino Llamas MD Unavailable Koko Mejia MD Primary Care Provider [phone] Stacie Yancey PINION AND WHEEL TRUER Unavailable Unavailable Lupe Hays APRN Unavailable [phone] Encounter Details Date Type Department Care Team (Late st Contact Info) Description 02/06/2007 Historical Encounter Global Edward Payne MD [address] [facility] [address] [address] Social History Tobacco Use Types [...] documented as of this encounter Care Teams Integrity Manager Relationship Specialty Start Date End Date Elio Rush MD PCP - General 07/14/08 04/01/19 Koko Mejia MD [address] [place] [address] [facility]. [address] [place] [address] PCP - General Internal Medicine 04/02/19 Waqas Llamas MD [address] [facility] [address] [place] [address] Obstetrics & Gynecology 02/10/18 Quirino Llamas MD [address] [facility] [address] [place] [address] Obstetrics & Gynecology 02/24/19 Stacie Yancey LPN 08/03/21 Lupe Hays APRN [address] [facility] [address] [place] [address] Nurse Practitioner 08/08/21 documented as of this encounter
--- OUTSIDE RECORDS SUMMARY | 2025-05-27 11:13 | XMS_ITS | Encounter Summary ---
Author Organization [employer] ([place], [place], [place], [place], [place]) Address [address] [place] [address] Care Team Providers Care Airline Transport Pilot Name Role Phone Koko Mejia MD Primary Care Provider [phone] Luana Clay RN Unavailable Unavailable Elio Santa MD Unavailable Janie Henry PA-C Unavailable [phone] Alicia Rush RN Unavailable Unavailable Lupe Luu MD Unavailable [phone] Selena Vegas MD Unavailable Encounter Details Date Type Department Care Team (Late st Contact Info) Description 05/09/2020 Transcribed Document [facility] Family Medicine [address] [place] [address] ProviderPrateek MD [address] [place] [address] Social History Tobacco Use Types Packs/Day Years Used Date Smoking Tobacco: Never Assessed Comments Unknown Sex and Gender Information Value Date Recorded Sex Assigned at Female 04/14/2024 11:58 AM CDT Legal Sex Female 7:07 PM CDT Gender Identity Not on file Sexual Orientation Not on file documented as of this encounter Miscellaneous Notes * Cerner Conversion Note - Prateek Sullivan MD - 05/09/2020 8:00 AM [facility] IntraOp Summary Primary Physician: JANN HENRY MD-OBG Finalized Date/Time: 05/09/20 10:52:17 Pt. Name: EDUARDA JAMISON /Sex: 1950 Female Med Rec #: [id number] Physician: JANN HENRY MD-OBG Financial #: [id number] Pt. Type: O Room/Bed: [facility] Admit/Disch: 05/09/20 03:43:00 - Institution: [facility] IntraOp Case Attendance Entry 1 Entry 2 Entry 3 Case Attendee JANN HENRY MD-OBG Holliday, Stewart R, RN NIKO DEMPSEY ST Role Performed Surgeon/Proceduralist, Ecd, First Scrub, First First Time In 05/09/20 07:35:00 05/09/20 07:35:00 05/09/20 07:35:00 Time Out 05/09/20 10:47:00 05/09/20 09:05:00 05/09/20 09:15:00 Procedure Sacral Colpopexy Sacral Colpopexy Sacral Colpopexy Robotic, Vaginal Robotic, Vaginal Robotic, Vaginal Hysterectomy Lap Hysterectomy Lap Hysterectomy Lap Assisted, Assisted, Assisted, Salpingo-Oophorectomy Salpingo-Oophorectomy Salpingo-Oophorectomy Laparoscopic, Laparoscopic, Laparoscopic, Transvaginal Taping, Transvaginal Taping, Transvaginal Taping, Lysis Adhesions Cystoscopy Adult, Lysis Cystoscopy Adult, Lysis Adhesions Adhesions Other Attendee Superficial Wound Closed By: Last Modified By: Edvin Mendes, RN Edvin Mendes, RN Edvin Mendes, RN 05/09/20 10:52:07 05/09/20 10:52:07 05/09/20 10:52:07 Entry 4 Entry 5 Entry 6 Case Attendee BERTRAM KUMAR, BRENTON MCCALL PA-C BARNARD, WILL, ST Role Performed COMMUNICATIONS DIRECTOR/Nurse Cargo Vessel Stewardess Physician clinic office assistant Scrub, Second Time In 05/09/20 07:35:00 05/09/20 07:35:00 05/09/20 07:35:00 Time Out 05/09/20 10:47:00 05/09/20 10:47:00 05/09/20 10:47:00 Procedure Sacral Colpopexy Sacral Colpopexy Sacral Colpopexy Robotic, Vaginal Robotic, Vaginal Robotic, Vaginal Hysterectomy Lap Hysterectomy Lap Hysterectomy Lap Assisted, Assisted, Assisted, Salpingo-Oophorectomy Salpingo-Oophorectomy Salpingo-Oophorectomy Laparoscopic, Laparoscopic, Laparoscopic, Transvaginal Taping, Transvaginal Taping, Transvaginal Taping, Cystoscopy Adult, Lysis Cystoscopy Adult, Lysis Cystoscopy Adult, Lysis Adhesions Adhesions Adhesions Other Attendee Superficial Wound Closed By: Last Modified By: Edvin Mendes, RN Edvin Mendes, RN Edvin Mendes RN 05/09/20 10:52:07 05/09/20 10:52:07 05/09/20 10:52:07 Entry 7 Entry 8 Entry 9 Case Attendee Nirali Meehan Wellnitz, Sara, [address]ED[address] Staff Respiratory Therapist Role Performed Scrub, Third Ecd, First Scrub, First Time In 05/09/20 08:54:00 05/09/20 09:05:00 05/09/20 09:15:00 Time Out 05/09/20 10:47:00 05/09/20 09:17:00 05/09/20 10:47:00 Procedure Sacral Colpopexy Robotic Sacral Colpopexy Sacral Colpopexy Robotic, Vaginal Robotic, Vaginal Hysterectomy Lap Hysterectomy Lap Assisted, Assisted, Salpingo-Oophorectomy Salpingo-Oophorectomy Laparoscopic, Laparoscopic, Transvaginal Taping, Transvaginal Taping, Cystoscopy Adult, Lysis Cystoscopy Adult, Lysis Adhesions Adhesions Other Attendee tech breaks break Superficial Wound Closed By: Last Modified By: Edvin Mendes RN Holliday, Stewart R RN Edvin Mendes RN 05/09/20 10:52:07 05/09/20 10:52:07 05/09/20 10:52:07 Entry 10 Case Attendee Edvin Mendes RN Role Performed Ecd, First Time In 05/09/20 09:17:00 Time Out 05/09/20 10:47:00 Procedure Sacral Colpopexy Robotic, Vaginal Hysterectomy Lap Assisted, Salpingo-Oophorectomy Laparoscopic, Transvaginal Taping, Cystoscopy Adult, Lysis Adhesions Other Attendee Superficial Wound Closed By: Last Modified By: Edvin Mendes RN 05/09/20 10:52:07 [facility] IntraOp Case Attendance Audit 05/09/20 10:52:07 Director Of Corporate Strategy: SAMY Modifier: KARISSAR 1 <+> Time Out 1 <*> Procedure Sacral Colpopexy Robotic, Vaginal Hysterectomy Lap Assisted, Salpingo-Oophorectomy Laparoscopic, Transvaginal Taping, Lysis Adhesions 2 <*> Procedure Sacral Colpopexy Robotic, Vaginal Hysterectomy Lap Assisted, Salpingo-Oophorectomy Laparoscopic, Transvaginal Taping, Cystoscopy Adult, Lysis Adhesions 3 <*> Procedure Sacral Colpopexy Robotic, Vaginal Hysterectomy Lap Assisted, Salpingo-Oophorectomy Laparoscopic, Transvaginal Taping, Cystoscopy Adult, Lysis Adhesions 4 <+> Time Out 4 <*> Procedure Sacral Colpopexy Robotic, Vaginal Hysterectomy Lap Assisted, Salpingo-Oophorectomy Laparoscopic, Transvaginal Taping, Cystoscopy Adult, Lysis Adhesions 5 <+> Time Out 5 <*> Procedure Sacral Colpopexy Robotic, Vaginal Hysterectomy Lap Assisted, Salpingo-Oophorectomy Laparoscopic, Transvaginal Taping, Cystoscopy Adult, Lysis Adhesions 6 <+> Time Out 6 <*> Procedure Sacral Colpopexy Robotic, Vaginal Hysterectomy Lap Assisted, Salpingo-Oophorectomy Laparoscopic, Transvaginal Taping, Cystoscopy Adult, Lysis Adhesions 7 <+> Time Out 7 <*> Procedure Sacral Colpopexy Robotic 8 <*> Procedure Sacral Colpopexy Robotic, Vaginal Hysterectomy Lap Assisted, Salpingo-Oophorectomy Laparoscopic, Transvaginal Taping, Cystoscopy Adult, Lysis Adhesions 9 <+> Time Out 9 <*> Procedure Sacral Colpopexy Robotic, Vaginal Hysterectomy Lap Assisted, Salpingo-Oophorectomy Laparoscopic, Transvaginal Taping, Cystoscopy Adult, Lysis Adhesions 10 <+> Time Out 10 <*> Procedure Sacral Colpopexy Robotic, Vaginal Hysterectomy Lap Assisted, Salpingo-Oophorectomy Laparoscopic, Transvaginal Taping, Cystoscopy Adult, Lysis Adhesions 05/09/20 10:19:38 Director Of Corporate Strategy: HOLLIDSR Modifier: HOLLIDSR 1 <*> Procedure Sacral Colpopexy Robotic, Vaginal Hysterectomy Lap Assisted, Salpingo-Oophorectomy Laparoscopic, Transvaginal Taping, Vaginal Repair Anterior And Posterior, Lysis Adhesions 2 <*> Procedure Sacral Colpopexy Robotic, Vaginal Hysterectomy Lap Assisted, Salpingo-Oophorectomy Laparoscopic, Transvaginal Taping, Cystoscopy Adult, Vaginal Repair Anterior And Posterior, Lysis Adhesions 3 <*> Procedure Sacral Colpopexy Robotic, Vaginal Hysterectomy Lap Assisted, Salpingo-Oophorectomy Laparoscopic, Transvaginal Taping, Cystoscopy Adult, Vaginal Repair Anterior And Posterior, Lysis Adhesions 4 <*> Procedure Sacral Colpopexy Robotic, Vaginal Hysterectomy Lap Assisted, Salpingo-Oophorectomy Laparoscopic, Transvaginal Taping, Cystoscopy Adult, Vaginal Repair Anterior And Posterior, Lysis Adhesions 5 <*> Procedure Sacral Colpopexy Robotic, Vaginal Hysterectomy Lap Assisted, Salpingo-Oophorectomy Laparoscopic, Transvaginal Taping, Cystoscopy Adult, Vaginal Repair Anterior And Posterior, Lysis Adhesions 6 <*> Procedure Sacral Colpopexy Robotic, Vaginal Hysterectomy Lap Assisted, Salpingo-Oophorectomy Laparoscopic, Transvaginal Taping, Cystoscopy Adult, Vaginal Repair Anterior And Posterior, Lysis Adhesions 7 <*> Procedure Sacral Colpopexy Robotic 8 <*> Procedure Sacral Colpopexy Robotic, Vaginal Hysterectomy Lap Assisted, Salpingo-Oophorectomy Laparoscopic, Transvaginal Taping, Cystoscopy Adult, Vaginal Repair Anterior And Posterior, Lysis Adhesions 9 <*> Procedure Sacral Colpopexy Robotic, Vaginal Hysterectomy Lap Assisted, Salpingo-Oophorectomy Laparoscopic, Transvaginal Taping, Cystoscopy Adult, Vaginal Repair Anterior And Posterior, Lysis Adhesions 10 <*> Procedure Sacral Colpopexy Robotic, Vaginal Hysterectomy Lap Assisted, Salpingo-Oophorectomy Laparoscopic, Transvaginal Taping, Cystoscopy Adult, Vaginal Repair Anterior And Posterior, Lysis Adhesions 05/09/20 09:20:19 Director Of Corporate Strategy: HOLLIDSR Modifier: HOLLIDSR 2 <+> Time Out 2 <*> Procedure Sacral Colpopexy Robotic, Vaginal Hysterectomy Lap Assisted, Salpingo-Oophorectomy Laparoscopic, Transvaginal Taping, Cystoscopy Adult, Vaginal Repair Anterior And Posterior, Lysis Adhesions 3 <+> Time Out 3 <*> Procedure Sacral Colpopexy Robotic, Vaginal Hysterectomy Lap Assisted, Salpingo-Oophorectomy Laparoscopic, Transvaginal Taping, Cystoscopy Adult, Vaginal Repair Anterior And Posterior, Lysis Adhesions <+> 8 Case Attendee <+> 8 Role Performed <+> 8 Time In <+> 8 Time Out <+> 8 Procedure <+> 8 Other Attendee <+> 9 Case Attendee <+> 9 Role Performed <+> 9 Time In <+> 9 Procedure <+> 10 Case Attendee <+> 10 Role Performed <+> 10 Time In <+> 10 Procedure 05/09/20 08:54:52 Director Of Corporate Strategy: KARISSAR Modifier: HOLLIDSR <+> 7 Case Attendee <+> 7 Role Performed <+> 7 Time In <+> 7 Procedure <+> 7 Other Attendee 05/09/20 08:18:25 Director Of Corporate Strategy: KARISSAR Modifier: HOLLIDSR 1 <*> Procedure Sacral Colpopexy Robotic, Vaginal Hysterectomy Lap Assisted, Salpingo-Oophorectomy Laparoscopic, Transvaginal Taping, Vaginal Repair Anterior And Posterior 2 <*> Procedure Sacral Colpopexy Robotic, Vaginal Hysterectomy Lap Assisted, Salpingo-Oophorectomy Laparoscopic, Transvaginal Taping, Cystoscopy Adult, Vaginal Repair Anterior And Posterior 3 <*> Procedure Sacral Colpopexy Robotic, Vaginal Hysterectomy Lap Assisted, Salpingo-Oophorectomy Laparoscopic, Transvaginal Taping, Cystoscopy Adult, Vaginal Repair Anterior And Posterior 4 <*> Procedure Sacral Colpopexy Robotic, Vaginal Hysterectomy Lap Assisted, Salpingo-Oophorectomy Laparoscopic, Transvaginal Taping, Cystoscopy Adult, Vaginal Repair Anterior And Posterior 5 <*> Procedure Sacral Colpopexy Robotic, Vaginal Hysterectomy Lap Assisted, Salpingo-Oophorectomy Laparoscopic, Transvaginal Taping, Cystoscopy Adult, Vaginal Repair Anterior And Posterior 6 <*> Procedure Sacral Colpopexy Robotic, Vaginal Hysterectomy Lap Assisted, Salpingo-Oophorectomy Laparoscopic, Transvaginal Taping, Cystoscopy Adult, Vaginal Repair Anterior And Posterior 05/09/20 07:58:54 Director Of Corporate Strategy: KARISSAR Modifier: HOLLIDSR 1 <*> Procedure Sacral Colpopexy Robotic, Vaginal Hysterectomy Lap Assisted, Salpingo-Oophorectomy Laparoscopic, Transvaginal Taping, Vaginal Repair Anterior And Posterior 2 <*> Procedure Sacral Colpopexy Robotic, Vaginal Hysterectomy Lap Assisted, Salpingo-Oophorectomy Laparoscopic, Transvaginal Taping, Cystoscopy Adult, Vaginal Repair Anterior And Posterior 3 <*> Procedure Sacral Colpopexy Robotic, Vaginal Hysterectomy Lap Assisted, Salpingo-Oophorectomy Laparoscopic, Transvaginal Taping, Cystoscopy Adult, Vaginal Repair Anterior And Posterior 4 <*> Procedure Sacral Colpopexy Robotic, Vaginal Hysterectomy Lap Assisted, Salpingo-Oophorectomy Laparoscopic, Transvaginal Taping, Cystoscopy Adult, Vaginal Repair Anterior And Posterior 5 <*> Procedure Sacral Colpopexy Robotic, Vaginal Hysterectomy Lap Assisted, Salpingo-Oophorectomy Laparoscopic, Transvaginal Taping, Cystoscopy Adult, Vaginal Repair Anterior And Posterior 6 <+> Time In 6 <*> Procedure Sacral Colpopexy Robotic, Vaginal Hysterectomy Lap Assisted, Salpingo-Oophorectomy Laparoscopic, Transvaginal Taping, Cystoscopy Adult, Vaginal Repair Anterior And Posterior 05/09/20 07:54:05 Director Of Corporate Strategy: HOLLIDSR Modifier: HOLLIDSR 1 <+> Time In 1 <*> Procedure Sacral Colpopexy Robotic, Vaginal Hysterectomy Lap Assisted, Salpingo-Oophorectomy Laparoscopic, Transvaginal Taping, Vaginal Repair Anterior And Posterior 2 <+> Time In 2 <*> Procedure Sacral Colpopexy Robotic, Vaginal Hysterectomy Lap Assisted, Salpingo-Oophorectomy Laparoscopic, Transvaginal Taping, Cystoscopy Adult, Vaginal Repair Anterior And Posterior 3 <+> Time In 3 <*> Procedure Sacral Colpopexy Robotic, Vaginal Hysterectomy Lap Assisted, Salpingo-Oophorectomy Laparoscopic, Transvaginal Taping, Cystoscopy Adult, Vaginal Repair Anterior And Posterior 4 <+> Time In 4 <*> Procedure Sacral Colpopexy Robotic, Vaginal Hysterectomy Lap Assisted, Salpingo-Oophorectomy Laparoscopic, Transvaginal Taping, Cystoscopy Adult, Vaginal Repair Anterior And Posterior 5 <+> Time In 5 <*> Procedure Sacral Colpopexy Robotic, Vaginal Hysterectomy Lap Assisted, Salpingo-Oophorectomy Laparoscopic, Transvaginal Taping, Cystoscopy Adult, Vaginal Repair Anterior And Posterior <+> 6 Case Attendee <+> 6 Role Performed <+> 6 Procedure [facility] IntraOp Case Times Entry 1 Patient In Room Time 05/09/20 07:35:00 Out Room Time 05/09/20 10:47:00 Anesthesia Start Time 05/09/20 07:35:00 Stop Time 05/09/20 10:47:00 Anesthesia Ready 05/09/20 07:35:00 Surgery / Procedure Times Start Time 05/09/20 08:00:00 Stop Time 05/09/20 10:31:00 Last Modified By: Edvin Mendes RN 05/09/20 10:52:06 [facility] IntraOp Case Times Audit 05/09/20 10:52:06 Director Of Corporate Strategy: KARISSAR Modifier: HOLLIDSR <+> 1 Out Room Time <+> 1 Stop Time 05/09/20 10:31:46 Director Of Corporate Strategy: RUBENIDSR Modifier: HOLLIDSR <+> 1 Stop Time 05/09/20 08:00:07 Director Of Corporate Strategy: RUBENIDSR Modifier: HOLLIDSR <+> 1 Start Time [facility] IntraOp Cautery Entry 1 ESU Identification Cautery Type Monopolar ESU ID Number ERBE ID Type Hospital Number Cautery Settings Cut Setting 30 Coag Setting 30 ESU Grounding Pad Ground Pad Type Adult Grounding Pad Edvin Mendes RN Applied By Grounding Pad Site Intact Skin Condition Before Cautery Grounding Pad Site Intact Skin Condition After Cautery Last Modified By: Edvin Mendes RN 05/09/20 08:07:31 [facility] IntraOp Communication Entry 1 Communication To Family/Significant other Comment procedure update Communication By Edvin Mendes, RN Date and Time 05/09/20 08:20:00 Last Modified By: Edvin Mendes RN 05/09/20 08:30:10 [facility] IntraOp Counts Verification Entry 1 Procedure Sacral Colpopexy Robotic, Vaginal Hysterectomy Lap Assisted, Salpingo-Oophorectomy Laparoscopic, Transvaginal Taping, Cystoscopy Adult, Lysis Adhesions Count Info Count Type Sponge, Sharps, Instrument, Miscellaneous Counts Verification Baseline/pre-procedure Sequence Counts Performed By Count Performed By NIKO DEMPSEY ST (Scrub) Count Performed By Edvin eMndes RN (RN) Last Modified By: Edvin Mendes RN 05/09/20 10:19:39 [facility] IntraOp Counts Verification Audit 05/09/20 10:19:39 Director Of Corporate Strategy: SAMY Modifier: RUBENIDSR 1 <*> Procedure Sacral Colpopexy Robotic, Vaginal Hysterectomy Lap Assisted, Salpingo-Oophorectomy Laparoscopic, Transvaginal Taping, Cystoscopy Adult, Vaginal Repair Anterior And Posterior, Lysis Adhesions 05/09/20 08:18:26 Director Of Corporate Strategy: KARISSAR Modifier: HOLLIDSR 1 <*> Procedure Sacral Colpopexy Robotic, Vaginal Hysterectomy Lap Assisted, Salpingo-Oophorectomy Laparoscopic, Transvaginal Taping, Cystoscopy Adult, Vaginal Repair Anterior And Posterior [facility] IntraOp Counts Final Entry 1 Procedure Sacral Colpopexy Robotic, Vaginal Hysterectomy Lap Assisted, Salpingo-Oophorectomy Laparoscopic, Transvaginal Taping, Cystoscopy Adult, Lysis Adhesions Final Count Info Count Type Sponge, Sharps, Miscellaneous Counts Verification Skin Closure/end of Sequence procedure Count Results Correct, surgeon notified Counts Performed By Count Performed By NIKO DEMPSEY ST (Scrub) Count Performed By Edvin Mendes RN (RN) Last Modified By: Edvin Mendes RN 05/09/20 10:27:03 [facility] IntraOp Cultures and Spec Summary Entry 1 Cultrures and Specimens Specimen Ordered: Yes Test(s) Routine/Path-Lab Requested/Final Disposition Last Modified By: Edvin Mendes RN 05/09/20 08:02:01 [facility] IntraOp Delays Entry 1 Delay Reason Room not ready Duration 5 Minute(s) Comment Not enough staff available Last Modified By: Edvin Mendes RN 05/09/20 08:01:57 [facility] IntraOp Delays Audit 05/09/20 08:01:57 Director Of Corporate Strategy: SAMY Modifier: SAMY <+> 1 Duration <+> 1 Comment [facility] IntraOp Departure from OR Entry 1 Integumentary Assessment Transfer/Handoff Transfer to PACU Phase I Post-op Transport Stretcher/Gurlyndsey Via Patient Transport EBRTRAM KUMAR CRNA, Accompanied by Edvin Mendes, RN Last Modified By: Edvin Mendes RN 05/09/20 07:20:43 [facility] IntraOp Dressing and Packing Entry 1 Type Dressing Location ABDOMEN Wound Dressing Item 2x2's, Skin adhesive, Steristrip Last Modified By: Edvin Mendes RN 05/09/20 07:20:47 [facility] IntraOp Fire Risk Assessment Entry 1 Fire Info Surgical Site or 0- No Incision Above the Xyphoid Open O2 Source 0- No (Mask or Cannula) Available Ignition 1- Yes (ESU, Laser, Light Source) Fire Risk 1 Assessment Score Fire Score Fire Risk Yes Assessment Complete Fire Risk Edvin Mendes RN Assessment Verified By Fire Risk 05/09/20 07:20:00 Assessment Verified Date/Time Fire Risk Standard Fire Yes Safety Precautions Followed Last Modified By: Edvin Mendes RN 05/09/20 07:20:42 E IntraOp General Case Aircraft Systems Repairer 1 Case Information OR OR 07 [facility] Case Level 1 Room Verified Yes Wound Class II - Clean-Contaminated Specialty SN Gynecology Anesthesia Type General ASA Class 3 Diagnosis Preop Diagnosis pelvic pain, aub, urinary incontinence Postop Diagnosis refer to MD notes Last Modified By: Edvin Mendes RN 05/09/20 08:01:18 E IntraOp General Case Data Audit 05/09/20 08:01:18 Director Of Corporate Strategy: SAMY Modifier: SAMY <+> 1 ASA Class <+> 1 Anesthesia Type <+> 1 Preop Diagnosis <+> 1 Postop Diagnosis <+> 1 Room Verified E IntraOp Implant Log Entry 1 Entry 2 Type Implant (Synthetic) Implant Log Implant Type Mesh Tissue Implant Type Implant SLING URIN INCONT MESH VERTESSA LITE Y Identification [id number] Description Implant Quantity 1 1 Implant Site Implant Identification Model Number Implant Identification Serial Number Implant [id number] Identification Lot Number Implant Carmine Med Carmine Med Identification Display Decorator Name: Implant [id number] Identification Catalog Number Implant Size Implant Has an Yes Yes Expiration Date Implant Expiration 06/22/24 08/03/24 Date Wasted Radioactive Material Time Implanted Tissue Implant Continue for Tissue Implant Documentation Tissue Identification Number Graft Prep Per Display Decorator Instructions: Tissue Preparation Method: Reconstitution Solution: Reconstitution Solution Lot Number Reconstitution Solution Expiration Date: Thawing Solution Thawing Solution Lot Number Thawing Solution Expiration Date Preparation Materials, Other Preparation Materials, Other Lot Number Preparation Materials, Other Expiration Date Tissue Prepared/Processed By Display Decorator Paperwork Completed Implant Type Comment Last Modified By: Edvin Mendes RN Holliday, Stewart R, RN 05/09/20 08:33:37 05/09/20 08:33:37 [facility] IntraOp Intraoperative Assessment Entry 1 Valid History / Yes Physical in Chart Preoperative Yes Checklist Reviewed/Evaluated Allergies Reviewed Yes Patient is Latex No Sensitive Isolation Not applicable Precautions Noted Skin Assessment Yes Verified Present Upon IVs Arrival to OR Last Modified By: Edvin Mendes RN 05/09/20 07:54:10 [facility] IntraOp Intraoperative Assessment Audit 05/09/20 07:54:10 Director Of Corporate Strategy: SAMY Modifier: SAMY <+> 1 Patient is Latex Sensitive [facility] IntraOp Intraoperative Equipment Entry 1 Equipment Equipment Other Intraop Monitoring Electrocardiogram Three lead placement (ECG) Electrode Placement Blood Pressure Non-Invasive BP Device Source Blood Pressure Arm, right upper Location Pulse Oximeter Hand, left Probe Site Antiembolic Devices Antiembolic Devices Sequential compression device, knee high Antiembolic Device Bilateral Location Scopes Photo/Video Documentation Photo No Video No Last Modified By: Edvin Mendes RN 05/09/20 08:00:55 [facility] IntraOp Medication Admin Entry 1 Entry 2 Entry 3 Medication/Irrigant vasopressin 20units 1ml Marcaine 0.5% w/ NaCl 0.9% 100ml IVPB - injection - [id number] epinephrine 1:200,000 [id number] 30ml vial - [id number] Combo Med List Time Administered Route of TOPICAL: DILUTED IN 100 Administration ML OF NS Dose Dose Unit of Measure Volume QS Administered By JANN HENRY MD-OBG BUTLER, LARRY S, MD-OBG JANN HENRY MD-OBShani Procedure Irrigation Irrigant Volume In Irrigant Volume Out Last Modified By: Edvin Mendes RN Holliday, Stewart R, RN Holliday, Stewart R, RN 05/09/20 08:02:19 05/09/20 08:02:19 05/09/20 10:29:03 Entry 4 Medication/Irrigant lidocaine 2% urojet 10ml jelly - [id number] Combo Med List Time Administered Route of Administration Dose Dose Unit of Measure Volume Administered By JANN HENRY MD-OBShani Procedure Irrigation Irrigant Volume In Irrigant Volume Out Last Modified By: Edvin Mendes RN 05/09/20 10:29:03 [facility] IntraOp Medication Admin Audit 05/09/20 10:29:03 Director Of Corporate Strategy: RUBENALEJANDROR Modifier: RUBENIDSR <+> 3 Medication/Irrigant <+> 3 Administered By <+> 4 Medication/Irrigant <+> 4 Administered By [facility] IntraOp Patient Positioning Entry 1 Procedure Lysis Adhesions Left Arm Position Secured on padded arm board Right Arm Position Secured on padded arm board Left Leg Position Uncrossed, parallel Right Leg Position Uncrossed, parallel Feet Uncrossed Yes Pressure Points Yes Checked Positioning Devices Arm Board, Stirrups/Leg Sharma, Sling Positioned By Edvin Mendes, RN, STACY, BERTRAM, JANNA, JANN HENRY MD-OBG Position Verified Positioning Yes Verified by Anesthesia Positioning Yes Verified by Surgeon Last Modified By: Edvin Mendes RN 05/09/20 10:19:39 [facility] IntraOp Patient Positioning Audit 05/09/20 10:19:39 Director Of Corporate Strategy: RUBENIDSR Modifier: HOLLIDSR 1 <*> Procedure Vaginal Repair Anterior And Posterior, Lysis Adhesions 05/09/20 08:18:27 Director Of Corporate Strategy: RUBENIDSR Modifier: HOLLIDSR 1 <*> Procedure Vaginal Repair Anterior And Posterior [facility] IntraOp Sign In Entry 1 Patient, Site, Yes Procedure Identified Surgical Consent Yes Confirmed Relevant Surgical Yes Documents Available Surgical Site N/A Marked by person performing procedure Anesthesia Machine Yes Check Completed Medication Checks Yes Completed Airway Difficult No Airway/Aspiration Risk Difficult Yes Airway/Aspiration Intervention Equipment Available Blood Loss Risk Yes Blood Loss Yes Intervention Equipment Prepared and Ready Hypothermia Risk Yes Warming Measures Yes Taken Last Modified By: Edvin Mendes RN 05/09/20 07:20:35 [facility] Intra Op Sign Out Entry 1 RN Confirmation Surgical Yes Procedure(s) Identified Instrument, Sponge Yes and Sharps Counts Correct/Documented Equipment Problems N/A Documented Specimen Labeled Yes Correctly Urinary Catheter Yes Documented in IView Campbell Patient Yes Recovery Concerns Reviewed with Anesthesia Provider, Surgeon and RN Campbell Patient Yes Management Concerns Reviewed with Anesthesia Provider, Surgeon and RN Safety Checklist Yes Elements Complete? RN Sign Out Edvin Mendes, RN Signature RN Sign Out 05/09/20 10:52:00 Signature Date/Time Plan of Care Outcome - Fire Risk OUTCOME STATEMENT: Goal met Patient is free from injury related to surgical fire Plan of Care Outcome - Pt Positioning OUTCOME STATEMENT: Goal met Absence of signs and symptoms of positioning injury. Plan of Care Outcome - Skin Prep OUTCOME STATEMENT: Goal met Intraoperative care is consistent with measures to prevent infection Plan of Care Outcome - Xray/Images OUTCOME STATEMENT: Goal met Absence of observable signs or symptoms of radiation injury Plan of Care Outcome - Counts OUTCOME STATEMENT: Goal met Absence of signs and symptoms of injury related to extraneous objects Last Modified By: Edvin Mendes RN 05/09/20 10:52:14 [facility] Intra Op Sign Out Audit 05/09/20 10:52:14 Director Of Corporate Strategy: SAMY Modifier: HOLLIDSR <+> 1 RN Sign Out Signature Date/Time [facility] IntraOp Skin Prep Entry 1 Procedure Lysis Adhesions Prescribed Yes Pre-Surgical Prep Completed Prep Area VAGINA Intraop Prep Prep Agents Betadine solution Prep by Edvin Mendes RN Hair Removal Last Modified By: Edvin Mendes RN 05/09/20 10:19:40 SJE IntraOp Skin Prep Audit 05/09/20 10:19:40 Director Of Corporate Strategy: SAMY Modifier: [email or web address] <+> 1 Procedure 05/09/20 10:19:39 Director Of Corporate Strategy: SAMY Modifier: [email or web address] 1 <-> Procedure Vaginal Repair Anterior And Posterior, Lysis Adhesions 05/09/20 08:18:27 Director Of Corporate Strategy: SAMY Modifier: [email or web address] 1 <*> Procedure Vaginal Repair Anterior And Posterior SJE IntraOp Surgical Procedures Entry 1 Entry 2 Entry 3 Procedure Sacral Colpopexy Robotic Vaginal Hysterectomy Salpingo-Oophorectomy Lap Assisted Laparoscopic Modifiers Additional ROBOTIC LAPAROSCOPIC Procedure ASSISTED VAGINAL Description HYSTERECTOMY WITH BILATERAL SALPINGO-OOPHORECTOMY; ROBOTIC SACROCOLPOPEXY; TVT WITH CYSTOSCOPY; Primary Procedure Yes No No Primary Surgeon JANN HENRY MD-OBG JANN HENRY MD-OBG JANN HENRY MD-OBG Start 05/09/20 08:00:00 05/09/20 08:00:00 05/09/20 08:00:00 Stop 05/09/20 10:31:00 05/09/20 10:31:00 05/09/20 10:31:00 Physician States Cecum Reached Anesthesia Type General General General Specialty SN Gynecology SN Gynecology SN Gynecology Wound Class I - Clean II - Clean-Contaminated II - Clean-Contaminated Last Modified By: CinthyaEdvin RN Holliday, Stewart R, Edvin Molina RN 05/09/20 10:52:09 05/09/20 10:52:09 05/09/20 10:52:09 Entry 4 Entry 5 Entry 6 Procedure Transvaginal Taping Cystoscopy Adult Lysis Adhesions Modifiers Additional Procedure Description Primary Procedure No No No Primary Surgeon JANN HENRY MD-OBG BUTLER, LARRY S, MD-OBG BUTLER, LARRY S, MD-OBG Start 05/09/20 08:00:00 05/09/20 08:00:00 05/09/20 08:00:00 Stop 05/09/20 10:31:00 05/09/20 10:31:00 05/09/20 10:31:00 Physician States Cecum Reached Anesthesia Type General General General Specialty SN Gynecology SN Gynecology SN Gynecology Wound Class II - Clean-Contaminated II - Clean-Contaminated I - Clean Last Modified By: Edvin Mendes RN Holliday, Stewart R RN Edvin Mendes RN 05/09/20 10:52:09 05/09/20 10:52:09 05/09/20 10:52:09 SJE IntraOp Surgical Procedures Audit 05/09/20 10:52:09 Director Of Corporate Strategy: ASMY Modifier: [email or web address] <+> 1 Stop <+> 2 Stop <+> 3 Stop <+> 4 Stop <+> 5 Stop <+> 6 Stop 05/09/20 10:19:45 Director Of Corporate Strategy: KARISSAR Modifier: [email or web address] 1 <*> Procedure Sacral Colpopexy Robotic 1 <*> Primary Procedure Yes 1 <*> Primary Surgeon JANN HENRY MD-OBG 1 <*> Specialty 1 <*> Start 05/09/20 08:00:00 1 <*> Wound Class I - Clean 1 <*> Anesthesia Type General 1 <*> Additional Procedure Description ROBOTIC LAPAROSCOPIC ASSISTED VAGINAL HYSTERECTOMY WITH BILATERAL SALPINGO-OOPHORECTOMY; ROBOTIC SACROCOLPOPEXY; TVT WITH CYSTOSCOPY; POSSIBLE ANTERIOR AND POSTERIOR REPAIR 2 <*> Procedure Vaginal Hysterectomy Lap Assisted 2 <*> Primary Procedure No 2 <*> Primary Surgeon JANN HENRY MD-OBG 2 <*> Specialty 2 <*> Start 05/09/20 08:00:00 2 <*> Wound Class II - Clean-Contaminated 2 <*> Anesthesia Type General 3 <*> Procedure Salpingo-Oophorectomy Laparoscopic 3 <*> Primary Procedure No 3 <*> Primary Surgeon JANN HENRY MD-OBG 3 <*> Specialty 3 <*> Start 05/09/20 08:00:00 3 <*> Wound Class II - Clean-Contaminated 3 <*> Anesthesia Type General 4 <*> Procedure Transvaginal Taping 4 <*> Primary Procedure No 4 <*> Primary Surgeon JANN HENRY MD-OBG 4 <*> Specialty 4 <*> Start 05/09/20 08:00:00 4 <*> Wound Class II - Clean-Contaminated 4 <*> Anesthesia Type General 5 <*> Procedure Cystoscopy Adult 5 <*> Primary Procedure No 5 <*> Primary Surgeon JANN HENRY MD-OBG 5 <*> Specialty 5 <*> Start 05/09/20 08:00:00 5 <*> Wound Class II - Clean-Contaminated 5 <*> Anesthesia Type General Entry 6 was deleted. Higher numbered entries shifted one position to fill the gap. <-> 6 Procedure Vaginal Repair Anterior And Posterior <-> 6 Primary Procedure No <-> 6 Primary Surgeon JNAN HENRY MD-OBG <-> 6 Specialty <-> 6 Start 05/09/20 08:00:00 <-> 6 Wound Class II - Clean-Contaminated <-> 6 Anesthesia Type General SJE IntraOp Temp Regulation Devices Entry 1 Temp Regulation Temperature Conductive warming Regulation Device device placed over patient Temperature Upper body Regulation Site Temperature Device 43 DEGREES C Setting Temperature Edvin Mendes RN Regulation Device Applied by Last Modified By: Edvin Mendes RN 05/09/20 08:00:48 SJE IntraOp Time Out Entry 1 Procedure to be Sacral Colpopexy Performed Robotic, Vaginal Hysterectomy Lap Assisted, Salpingo-Oophorectomy Laparoscopic, Transvaginal Taping, Cystoscopy Adult, Lysis Adhesions Time Out Time Out Pause Time 05/09/20 07:59:00 All activity Yes suspended (unless life threatening emergency) Team Verbally Correct patient Confirms Information identity, Correct side and site are marked, Consent form is present and accurate, Agreement on the procedure to be done, Correct patient position, Relevant images/results properly labeled/appropriately displayed, Confirm antibiotics have been administered, Confirm the skin prep has dried, Confirm prosthesis/implant/devic e is present, Performed in location of procedure after prepped/draped Antibiotic Yes Prophylaxis Administered Or In Progress Within the Last 60 Minutes Beta Felicia N/A Administered Venous Yes Thromboembolism Prophylaxis Required Anticipated Critical Events Surgeon None expected Anesthesia Provider None expected Nursing Assures Sterility of instruments, Implant Availability Essential Imaging Yes Labeled and Displayed Last Modified By: Edvin Mendes RN 05/09/20 10:19:40 MICHAEL IntraOp Time Out Audit 05/09/20 10:19:40 Director Of Corporate Strategy: SAMY Modifier: [email or web address] 1 <*> Procedure to be Performed Sacral Colpopexy Robotic, Vaginal Hysterectomy Lap Assisted, Salpingo-Oophorectomy Laparoscopic, Transvaginal Taping, Cystoscopy Adult, Vaginal Repair Anterior And Posterior, Lysis Adhesions 05/09/20 08:18:27 Director Of Corporate Strategy: SAMY Modifier: [email or web address] 1 <*> Procedure to be Performed Sacral Colpopexy Robotic, Vaginal Hysterectomy Lap Assisted, Salpingo-Oophorectomy Laparoscopic, Transvaginal Taping, Cystoscopy Adult, Vaginal Repair Anterior And Posterior Case Comments <None> Finalized By: Edvin Mendes, RN Document Signatures Signed By: Edvin Mendes RN 05/09/20 10:52 documented in this encounter Plan of Treatment Upcoming Encounters Date Type Department Care Team (Late st Contact Info) Description 06/02/2025 11:30 AM EST Office Visit [facility] Neurology [address] [facility] [address] [place] [address] Selena Vegas MD [address] [facility] [address] [place] [address] 06/02/2025 1:00 PM EST Appointment [facility] Outpatient Treatment [address] [place] [address] 06/24/2025 1:15 PM EST Office Visit [facility] BOAT RENTAL CLERK - [address] [facility] [address] [place] [address] Erica Summers MD [address] [place], [place] [id number] documented as of this encounter Visit Diagnoses Not on filedocumented in this encounter Care Teams Airline Transport Pilot Relationship Specialty Start Date End Date Koko Mejia MD [address] [facility]. [address] [place] [address] PCP - General Internal Medicine 08/20/22 Obed, Luana Gomez, RN Nurse Navigator 08/20/22 06/18/23 Elio Santa MD [address] [facility] [address] [place] [address] Medical Oncologist Hematology and Oncology 08/20/22 06/12/23 Janie Henry, YARAC [address] [facility] [address] [place] [address] Physician Policewoman Oncology 10/30/22 06/18/23 Alicia Rush, RN Registered Nurse Oncology 10/30/22 06/18/23 Lupe Luu MD [address] [facility] [address] [place] [address] Hematology and Oncology 06/13/23 06/18/23 Selena Vegas MD [address] [facility] [address] [facility] [address] [place] [id number] Neurology 12/02/24 documented as of this encounter
--- OUTSIDE RECORDS SUMMARY | 2025-05-27 11:13 | XMS_ITS | Encounter Summary ---
Author Organization [facility] Address [address] [place] [address] Care Team Providers Care Pressure Steamer Tender Name Role Phone Elio Rush MD Primary Care Provider Unavaila [facility] Waqas Llamas MD Unavailable [phone] Quirino Llamas MD Unavailable Koko Mejia MD Primary Care Provider Stacie Yancey CARE MANAGER Unavailable Unavailable Lupe Hays APRN Unavailable [phone] Encounter Details Date Type Department Care Team (Late st Contact Info) Description 11/24/2004 Historical Encounter Global Quirino Llamas MD [address] [facility] [address] [place] [address] Social History Tobacco Use Types [...] documented as of this encounter Care Teams Pressure Steamer Tender Relationship Specialty Start Date End Date Elio Rush MD PCP - General 07/14/08 04/01/19 Koko Mejia MD [address] [place] [address] [facility]. [address] [place] [address] PCP - General Internal Medicine 04/02/19 Waqas Llamas MD [address] [facility] [address] [place] [address] Obstetrics & Gynecology 02/10/18 Quirino Llamas MD [address] [facility] [address] [place] [address] Obstetrics & Gynecology 02/24/19 Stacie Yancey LPN 08/03/21 Lupe Hays APRN [address] [place] [address] Nurse Practitioner 08/08/21 documented as of this encounter
--- OUTSIDE RECORDS SUMMARY | 2025-05-27 11:13 | XMS_ITS | Encounter Summary ---
Author Organization [facility] Address [address] [place] [address] Care Team Providers Care Advertiser Name Role Phone Elio Rush MD Primary Care Provider Unavaila [facility] Waqas Llamas MD Unavailable Quirino Llamas MD Unavailable Koko Mejia MD Primary Care Provider Stacie Yancey AQUATIC BIOLOGIST Unavailable Unavailable Lupe Hays APRN Unavailable Encounter Details Date Type Department Care Team (Late st Contact Info) Description 01/05/2005 Historical Encounter Global Quirino Llamas MD [address] [facility] [address] [place] [address] Social History Tobacco Use Types [...] documented as of this encounter Care Teams Advertiser Relationship Specialty Start Date End Date Elio Rush MD PCP - General 07/14/08 04/01/19 Koko Mejia MD [address] [place] [address] [facility]. [address] [place] [address] PCP - General Internal Medicine 04/02/19 Waqas Llamas MD [address] [facility] [address] [place] [address] Obstetrics & Gynecology 02/10/18 Quirino Llamas MD [address] [facility] [address] [place] [address] Obstetrics & Gynecology 02/24/19 Stacie Yancey LPN 08/03/21 Lupe Hays APRN [address] [place] [address] Nurse Practitioner 08/08/21 documented as of this encounter
--- OUTSIDE RECORDS SUMMARY | 2025-05-27 11:13 | XMS_ITS ---
Author Organization [employer] ([place], [place], [place], [place], [place]) Address [address] [place] [address] Care Team Providers Care Saw Tailer Name Role Phone Koko Mejia MD Primary Care Provider [phone] Selena Vegas MD Unavailable Active Problems * This document contains information received from the source organization and may not represent a complete record from that organization. 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 Vaginal bleeding 03/25/2024 Vaginal atrophy 07/11/2023 Complication of other implan nacho genitourinary mesh, unspecified complication, initial encounter 07/11/2023 CAD (s/p stent 05/28) 09/18/2022 Malignant neoplasm of upper- outer quadrant of left breast in female, estrogen receptor positive 08/29/2022 Cancer Staging:Pathologic: pT2, pN3a, G2, ER+, NC+, HER2- - Signed by Elio Santa MD on 10/09/2022 Thyroid disease ELAINE (does not use CPAP) Delayed emergence from anesthesia HTN (hypertension) Aortic stenosis Current Treatment and Therapy Plans [facility] BONE MODIFYING AGENT ZOLEDRONIC ACID (RECLAST, ZOMETA)* Plan Start Date: 12/13/2022 Plan Provider:Elio Santa MD Linked Problems Malignant neoplasm of upper- outer quadrant of left breast in female, estrogen receptor positive (HCC) Treatment Medications sodium chloride 0.9 % (NS)so dium chloride 0.9% (NS) [facility] LINE CARE - USE WITH INFUSIONS* Plan Start Date:10/18/2022 Linked Problems Malignant neoplasm of upper- outer quadrant of left breast in female, estrogen receptor positive (HCC) Treatment Medications alteplase (CATHFLO) 2 mg in SW 2 mL syringe Other Current Plans [facility] BLANK THERAPY PLAN* Plan Start Date:05/03/2025 Plan Provider:Selena Vegas MD Linked Problems Alzheimer dementia (HCC) Treatment Medications donanemab-azbt (KISUNLA) inf usion 100 mLondansetron (ZOFRAN) Past Treatment and Therapy Plans ONCOLOGY TREATMENT Plan Name Start Date Discontinue Date Treatment Medications Discontinue Reason Plan Provider Cycles [facility] Breast adjuvant - dose dense DOXOrubicin + cyclophosphamide followed by PACLitaxel 023 06/03/2023 cyclophosphamide (CYTOXAN) chemo infusiondexamethasone (DECADRON) IVPBdiphenhydrAMINE (BENADRYL)DOXOrubicin (ADRIAMYCIN)fosaprepit ant (EMEND) IVPB 150 mg in NSPACLitaxel (TAXOL) chemo infusionpalonosetron (ALOXI)pegfilgrastim (NEULASTA ONPRO)pegfilgrastim-jm db (FULPHILA)sodium chloride 0.9 % (NS) Therapy Complete Elio Santa MD 8 of 8 cycles started Lifetime Dose Tracking * Chemical Lifetime Dose Automatic Entry Manual Entr y doxorubicin 205.166 mg/m2 (360 mg) 205.166 mg/m2 (360 mg) 0 mg/m2 (0 mg)
--- OUTSIDE RECORDS SUMMARY | 2025-05-27 11:13 | XMS_ITS | Clinical Summary ---
Author Organization [employer] ([place], [place], [place], [place], [place]) Address [address] [place] [address] Care Team Providers Care Microsoft Dynamics Ax Consultant Name Role Phone Koko Mejia MD Primary Care Provider Selena Vegas MD Unavailable Allergies Active Allergy Reactions Criticality Noted Date [...] 08/29/2022 Cancer Staging:Pathologic: pT2, pN3a, G2, ER+, MD+, HER2- - Signed by Elio Santa MD on 10/09/2022 Thyroid disease ELAINE (does not use CPAP) Delayed emergence from anesthesia HTN (hypertension) Aortic stenosis Encounters Date Type Department Care Team Description 05/10/2025 Telephone [facility] Neurology - [address] [facility] [address] [place] [address] Jennifer Webb RN Appointment (Patient order was faxed on 05-06-25 Patient daughter attempted to schedule and called to let us know earliest appt was 06-04-25 which was after infusion date. Call was placed to Rudy Peña in [place] and was able to get appt on 05-19-25 at 12:15 Call made to Daughter to inform her of appt and need to arrive 20-30 minutes early at [facility] for registration) 05/03/2025 8:27 AM EDT - 05/03/2025 10:59 PM EDT Hospital Encounter [facility] Outpatient Treatment [address] [place] [address] Alzheimer dementia (HCC) (Primary Dx) Discharge Disposition: Home or Self Care 04/28/2025 Telephone [facility] Neurology - [facility] [address] [place] [address] Jennifer Webb RN Memory Loss (Patient cancelled Kisunla infusion on 04-20-25 scheduled for 05-03-25 Called to check on patient) 03/03/2025 Telephone [facility] Neurology - [facility] [address] [place] [address] Shona Nettles CMA mri new order from Last 3 Months Family History Medical History Relation Name Comments Heart disease Brother Hypertension Child daughter Thyroid disease Child daughter Heart disease Mother Hypertension Son Psoriasis Son Relation Name Status Comments Brother Child daughter Alive Father Mother Son Alive Social History Tobacco Use Types Packs/Day [...] Date Gerard rded Speak language other than Cuban at home Not on file 07/18/2023 Want [...] Description 06/02/2025 11:30 AM EST Office Visit [facility] Neurology - [address] [place] [address] Selena Vegas MD [address] [place] [address] [place] [address] 06/02/2025 1:00 PM EST Appointment [facility] Outpatient Treatment [address] [place] [address] 06/24/2025 1:15 PM EST Office Visit [facility] REJOINER - [address] [place] [address] Erica Summers MD [address] [place] [address] Health Maintenance Due Date Last Done Comments CT Colonography 1950 Colonoscopy 1950 Colorectal Cancer Screening 1950 DXA SCAN 1950 FOBT/FIT 1950 Fit-DNA (Cologuard) 1950 Sigmoidoscopy 1950 Depression Screening (12+) 1962 Hepatitis C Screening 1968 Pneumococcal 50+ years (1 of 2 - PCV) 1969 Shingles Vaccine (Zoster) (1 of 2) 2000 Respiratory Syncytial Virus (RSV) Adult or (1 - Risk 60-74 years 1-dose series) 2010 Medicare Initial AWV G0438 11/06/2016 COVID-19 VACCINE (3 - Modern a risk series) 04/16/2021 03/19/2021, 02/11/2021 Breast Cancer Screening 08/27/2024 08/27/19, 08/09/2022, 07/30/2022, Additional history exists Influenza Vaccine (#1) 2025 Tobacco Cessation Counseling and Screening (12+) 05/03/2026 05/03/2025 DTAP/TDAP/TD VACCINES (3 - T d or Tdap) 03/29/2032 03/29/2022, 01/02/2014 Falls Risk Screening Completed 02/16/2025 Medical Devices Explanted Type Area Keypuncher Device Identifier Shelf Expiration Date Model / Serial / Lot Port Power M.[employer].I. 8 Fr [id number] - [id number] Implanted:Qty : 1 on 10/16/2022 by Elmer Solomon MD at [facility] IMPLANTS Right: Chest CR BARD:ACCESS SYS 03/07/2024 [id number] / / [id number] Procedures Procedure Name Priority Date/Time Associated Diagnosis [...] 4 breast tissue. At our facility, a cocopah marker is positioned over a visible skin [...] desired. COMPARISON STUDIES: Several mammograms performed at [facility] [place] in July and August 2022 as well as recent 08/23/[address] [facility] FINDINGS: Today's mammogram consisted of full size [...] Health Maintenance Insurance MEDICARE PART A B [facility] SUPP Advance Directives For more information, please contact: [phone] * Full Code (Latest Code Status on File) Date Activated Date Inactivated Comments 04/20/2024 5:05 AM 04/20/2024 11:36 AM Care Teams Microsoft Dynamics Ax Consultant Relationship Specialty Start Date End Date Koko Mejia MD [address] [facility] [address] [place] [address] PCP - General Internal Medicine 08/20/22 Selena Vegas MD [address] [facility] [address] [facility] [address] [place] [address] Neurology 12/02/24
--- OUTSIDE RECORDS SUMMARY | 2025-05-27 11:13 | XMS_ITS | Encounter Summary ---
Author Organization [employer] ([place], [place], [place], [place], [place]) Address [address] [place] [address] Care Team Providers Care Yard Crane Operator Name Role Phone Koko Mejia MD Primary Care Provider [phone] Luana Clay RN Unavailable Unavailable Elio Santa MD Unavailable Janie Henry PA-C Unavailable [phone] Alicia Rush RN Unavailable Unavailable Lupe Luu MD Unavailable [phone] Selena Vegas MD Unavailable Encounter Details Date Type Department Care Team (Late st Contact Info) Description 05/09/2020 Transcribed Document [facility] [address] [place] [address] ProviderPrateek MD [address] [place] [address] Social History Tobacco Use Types [...] Note - Prateek Sullivan MD - 05/09/2020 5:00 PM ANIMAL BIOLOGIST Chart Check - Review Order Profile Entered On: 05/09/2020 15:30 EST Performed On: 05/09/2020 17:00 EST by Alejandra Pickett Rn Chart Check Powerplans Initiated/Discontinued as Appropriate : Yes All Active Orders Reviewed : Yes Alejandra Pickett Rn - 05/09/2020 15:30 EST Electronically signed by [facility] Conversion Securities Trader Cerner at 10/25/2022 3:28 PM CDT documented in this encounter Plan of Treatment Upcoming Encounters Date Type Department Care Team (Late st Contact Info) Description 06/02/2025 11:30 AM EST Office Visit [facility] Neurology - [facility] [address] [employer] [facility] [employer] [employer] [facility] [address] [place] [address] Selena Vegas MD [address] [facility] [address] [place], [place] [address] 06/02/2025 1:00 PM EST Appointment [facility] Outpatient Treatment [address] [place] [address] 06/24/2025 1:15 PM EST Office Visit [facility] AUTOMATIC SPINNING LATHE OPERATOR - [address] [facility] [address] [place] [address] Erica Summers MD [address] [facility] [address] [place], [place] [id number] documented as of this encounter Visit Diagnoses Not on filedocumented in this encounter Care Teams Yard Crane Operator Relationship Specialty Start Date End Date Koko Mejia MD [address] [facility] [address] [place] [address] PCP - General Internal Medicine 08/20/22 Luana Clay RN Nurse Navigator 08/20/22 06/18/23 Elio Santa MD [address] [facility] [address] [place] [address] Medical Oncologist Hematology and Oncology 08/20/22 06/12/23 Janie Henry, BUBBA [address] [facility] [address] [place] [address] Physician Well Cleaner Oncology 10/30/22 06/18/23 Alicia Rush, RN Registered Nurse Oncology 10/30/22 06/18/23 Lupe Luu MD [address] [facility] [address] [place] [address] Hematology and Oncology 06/13/23 06/18/23 Selena Vegas MD [address] [facility] [address] [facility] [address] [place] [address] Neurology 12/02/24 documented as of this encounter
--- OUTSIDE RECORDS SUMMARY | 2025-05-27 11:14 | XMS_ITS | Encounter Summary ---
Author Organization [facility] Address [address] [place] [address] Care Team Providers Care Vending Machine Coin Collector Name Role Phone Elio Rush MD Primary Care Provider Unavaila [facility] Waqas Llamas MD Unavailable Quirino Llamas MD Unavailable Koko Mejia MD Primary Care Provider Stacie Yancey BRONZER Unavailable Unavailable Lupe Hays APRN Unavailable Encounter Details Date Type Department Care Team (Late st Contact Info) Description 07/15/2003 Historical Encounter Global Quirino Llamas MD [address] [facility] [address] [place] [address] Social History Tobacco Use Types [...] documented as of this encounter Care Teams Vending Machine Coin Collector Relationship Specialty Start Date End Date Elio Rush MD PCP - General 07/14/08 04/01/19 Koko Mejia MD [address] [place] [address] [facility]. [address] [place] [address] PCP - General Internal Medicine 04/02/19 Waqas Llamas MD [address] [facility] [address] [place] [address] Obstetrics & Gynecology 02/10/18 Quirino Llamas MD [address] [facility] [address] [place] [address] Obstetrics & Gynecology 02/24/19 Stacie Yancey LPN 08/03/21 Lupe Hays APRN [address] [place] [address] Nurse Practitioner 08/08/21 documented as of this encounter
--- OUTSIDE RECORDS SUMMARY | 2025-05-27 11:14 | XMS_ITS | Encounter Summary ---
Author Organization [facility] Address [address] [place] [address] Care Team Providers Care Metal Precision Machine Assembler Name Role Phone Elio Rush MD Primary Care Provider Unavaila [facility] Waqas Llamas MD Unavailable [phone] Quirino Llamas MD Unavailable Koko Mejia MD Primary Care Provider Stacie Yancey CHRONOMETER TESTER Unavailable Unavailable Lupe Hays APRN Unavailable [phone] Encounter Details Date Type Department Care Team (Late st Contact Info) Description 11/18/2003 Historical Encounter Global Quirino Llamas MD [address] [facility] [address] [place] [address] Social History Tobacco Use Types [...] documented as of this encounter Care Teams Metal Precision Machine Assembler Relationship Specialty Start Date End Date Elio Rush MD PCP - General 07/14/08 04/01/19 Koko Mejia MD [address] [place] [address] [facility]. [address] [place] [address] PCP - General Internal Medicine 04/02/19 Waqas Llamas MD [address] [facility] [address] [place] [address] Obstetrics & Gynecology 02/10/18 Quirino Llamas MD [address] [facility] [address] [place] [address] Obstetrics & Gynecology 02/24/19 Stacie Yancey LPN 08/03/21 Lupe Hays APRN [address] [place] [address] Nurse Practitioner 08/08/21 documented as of this encounter
--- OUTSIDE RECORDS SUMMARY | 2025-05-27 11:14 | XMS_ITS | Encounter Summary ---
Author Organization [facility] Address [address] [place] [address] Care Team Providers Care Melter Clerk Name Role Phone Elio Rush MD Primary Care Provider Unavaila Waqas Vega MD Unavailable [phone] Quirino Llamas MD Unavailable Koko Mejia MD Primary Care Provider [phone] Stacie Yancey EXCEL VBA DEVELOPER Unavailable Unavailable Lupe Hays APRN Unavailable Encounter Details Date Type Department Care Team (Late st Contact Info) Description 08/26/2002 Historical Encounter Global Waqas Simpson MD [address] [place] [address] Social History Tobacco Use Types [...] documented as of this encounter Care Teams Melter Clerk Relationship Specialty Start Date End Date Elio Rush MD PCP - General 07/14/08 04/01/19 Koko Mejia MD [address] [facility] [address] [place] [address] PCP - General Internal Medicine 04/02/19 Waqas Llamas MD [address] [facility] [address] [place] [address] Obstetrics & Gynecology 02/10/18 Quirino Llamas MD [address] [facility] [address] [place] [address] Obstetrics & Gynecology 02/24/19 Stacie Yancey LPN 08/03/21 Lupe Hays APRN [address] [facility] [address] [place] [address] Nurse Practitioner 08/08/21 documented as of this encounter
--- OUTSIDE RECORDS SUMMARY | 2025-05-27 11:14 | XMS_ITS | Encounter Summary ---
Author Organization [facility] Address [address] [place] [address] Care Team Providers Care Inspection Machine Tender Name Role Phone Elio Rush MD Primary Care Provider Unavaila [facility] Waqas Llamas MD Unavailable Quirino Llamas MD Unavailable Koko Mejia MD Primary Care Provider [phone] Stacie Yancey SLIP SHEETER Unavailable Unavailable Lupe Hays APRN Unavailable [phone] Encounter Details Date Type Department Care Team (Late st Contact Info) Description 11/13/2002 Historical Encounter Global Quirino Llamas MD [address] [facility] [address] [place] [address] Social History Tobacco Use Types [...] documented as of this encounter Care Teams Inspection Machine Tender Relationship Specialty Start Date End Date Elio Rush MD PCP - General 07/14/08 04/01/19 Koko Mejia MD [address] [place] [address] [facility]. [address] [place] [address] PCP - General Internal Medicine 04/02/19 Waqas Llamas MD [address] [facility] [address] [place] [address] Obstetrics & Gynecology 02/10/18 Quirino Llamas MD [address] [facility] [address] [place] [address] Obstetrics & Gynecology 02/24/19 Stacie Yancey LPN 08/03/21 Lupe Hays APRN [address] [place] [address] Nurse Practitioner 08/08/21 documented as of this encounter
--- OUTSIDE RECORDS SUMMARY | 2025-05-27 11:14 | XMS_ITS | Encounter Summary ---
Author Organization [facility] Address [address] [place] [address] Care Team Providers Care Second Floor Operator Name Role Phone Elio Rush MD Primary Care Provider Unavaila [facility] Waqas Llamas MD Unavailable Quirino Llamas MD Unavailable Koko Mejia MD Primary Care Provider Stacie Yancey ORGANISATION AND METHODS ANALYST Unavailable Unavailable Lupe Hays APRN Unavailable Encounter Details Date Type Department Care Team (Late st Contact Info) Description 03/31/2003 Historical Encounter Global Quirino Llamas MD [address] [facility] [address] [place] [address] Social History Tobacco Use Types [...] documented as of this encounter Care Teams Second Floor Operator Relationship Specialty Start Date End Date Elio Rush MD PCP - General 07/14/08 04/01/19 Koko Mejia MD [address] [place] [address] [facility]. [address] [place] [address] PCP - General Internal Medicine 04/02/19 Waqas Llamas MD [address] [facility] [address] [place] [address] Obstetrics & Gynecology 02/10/18 Quirino Llamas MD [address] [facility] [address] [place] [address] Obstetrics & Gynecology 02/24/19 Stacie Yancey LPN 08/03/21 Lupe Hays APRN [address] [place] [address] Nurse Practitioner 08/08/21 documented as of this encounter
[2025-05-27 11:15] LABS: Alanine Aminotransferase 22 U/L (12-78); Albumin Level 4.6 g/dl (3.5-5.0); Albumin/Globulin Ratio 1.6 (1.1-1.8); Alkaline Phosphatase 57 U/L (38-126); Anion Gap 10.9 mEq/L (5-15); Aspartate Amino Transferase 34 U/L (14-36); Bilirubin,Total 0.6 mg/dl (0.2-1.3); Blood Urea Nitrogen 13 mg/dl (7-17); Calcium 9.6 mg/dl (8.4-10.2); Carbon Dioxide 29 mmol/L (22.0-30.0); Chloride 102 mmol/L (98-107); Creatinine Clearance Estimated 54 mL/min (50-200); Creatinine,Serum 0.60 mg/dl (0.52-1.04); Estimated Glomerular Filt Rate 98 ml/min (>60); GFR (African American) 118 ML/MIN (>60); Globulin 2.9 g/dL (1.3-3.2); Glucose 91 mg/dl (74-100); Potassium 3.9 mmoL/L (3.5-5.1); Sodium 138 mmol/L (136-145); Total Protein,Serum 7.5 g/dl (6.3-8.2)
[2025-05-27 11:42] VITALS: BP 150/71; PULSE 63; RESP 18; TEMP 36.6; O2SAT 98
[2025-05-27] MEDS: SODIUM CHLORIDE 0.9% 10ML FLUSH SYRINGE 10 ML IV (11:42)
[2025-05-27] MEDS: ZOLEDRONIC ACID 4 MG in 0.9 % SODIUM CHLORIDE 100 ML 420 MG IV (11:42)
== END 2025-05-27 23:59 | disposition home or self-care (01) ==
LOC: INF 10:32
PROVIDERS: Visit Provider Internal Medicine Medical Oncology
DX: C50.912 Malignant neoplasm of unspecified site of left female breast (principal)
CPT/HCPCS: 80053; 96374; J3489